=== PATIENT | female | born 1935 | race Caucasian/White ===

== ENCOUNTER → 2016-04-29 | Outpatient (CLI) | payer OTHER ==
[2016-04-29 08:02] LABS: Basophils # (auto) 0 uL; Basophils % (auto) 0.8 % (0.0-2.0); Eosinophils # (auto) 0.1 uL; Eosinophils % (auto) 1.9 % (0.0-7.0); Hematocrit 43.8 % (36.0-46.0); Hemoglobin 14.1 g/dL (12.2-16.2); Lymphocytes # (auto) 1.5 uL; Lymphocytes % (auto) 27.7 % (10.0-50.0); Mean Corpuscular Hemoglobin 29.5 pg (28.0-32.0); Mean Corpuscular Hgb Conc. 32.2 g/dL (32.0-36.0); Mean Corpuscular Volume 91.9 fL (80.0-100.0); Mean Platelet Volume 10.1 fL (7.4-10.4); Monocytes # (auto) 0.5 uL; Monocytes % (auto) 8.7 % (0.0-12.0); Neutrophils # (auto) 3.3 uL; Neutrophils % (auto) 60.9 % (37.0-80.0); Platelet Count (auto) 159 10^3/uL (140-450); Red Cell Distribution Width 13.4 % (11.6-16.0); White Blood Cell 5.4 10^3/uL (4.4-10.8)
[2016-04-29 08:21] LABS: Albumin 3.8 g/dL (3.4-5.0); BUN/Creatinine Ratio 22.4; Bilirubin, Total 0.5 mg/dL (0.2-1.0); Calcium 8.9 mg/dL (8.5-10.1); Total Protein 6.7 g/dL (6.4-8.2); Urine Bilirubin Negative (Negative); Urine Blood Negative /uL (Negative); Urine Color Yellow (Yellow); Urine Glucose Normal (Normal); Urine Ketone Negative (Negative); Urine Nitrite Negative (Negative); Urine RBC 1 /hpf (0 - 4); Urine Squamous Epithelial Cell FEW /hpf (<5); Urine Urobilinogen Normal (Negative); Urine pH 6.5 (5.0-8.0)
== END | disposition home or self-care (01) ==
LOC: LAB 06:46
DX: I10 Essential (primary) hypertension (principal)
CPT/HCPCS: 36415; 80053; 80061; 81001; 84443; 85025

== ENCOUNTER → 2016-08-29 | Outpatient (CLI) | payer OTHER ==
[2016-08-29 08:08] LABS: Basophils # (auto) 0 uL; Basophils % (auto) 0.8 % (0.0-2.0); Eosinophils # (auto) 0.1 uL; Eosinophils % (auto) 2.4 % (0.0-7.0); Hematocrit 40.9 % (36.0-46.0); Hemoglobin 13.2 g/dL (12.2-16.2); Lymphocytes # (auto) 1.6 uL; Lymphocytes % (auto) 29.8 % (10.0-50.0); Mean Corpuscular Hemoglobin 29.1 pg (28.0-32.0); Mean Corpuscular Hgb Conc. 32.2 g/dL (32.0-36.0); Mean Corpuscular Volume 90.3 fL (80.0-100.0); Mean Platelet Volume 10.1 fL (7.4-10.4); Monocytes # (auto) 0.3 uL; Monocytes % (auto) 5.9 % (0.0-12.0); Neutrophils # (auto) 3.3 uL; Neutrophils % (auto) 61.1 % (37.0-80.0); Platelet Count (auto) 190 10^3/uL (140-450); Red Cell Distribution Width 15.2 % (11.6-16.0); White Blood Cell 5.4 10^3/uL (4.4-10.8)
[2016-08-29 08:22] LABS: Urine Bilirubin Negative (Negative); Urine Blood Negative /uL (Negative); Urine Color Yellow (Yellow); Urine Glucose Normal (Normal); Urine Ketone Negative (Negative); Urine Nitrite Negative (Negative); Urine RBC 1 /hpf (0 - 4); Urine Squamous Epithelial Cell FEW /hpf (<5); Urine Urobilinogen Normal (Negative)
[2016-08-29 08:35] LABS: Albumin 3.8 g/dL (3.4-5.0); Bilirubin, Total 0.5 mg/dL (0.2-1.0); Calcium 8.8 mg/dL (8.5-10.1); Potassium 3.8 mmol/L (3.5-5.1); Total Protein 6.9 g/dL (6.4-8.2)
== END | disposition home or self-care (01) ==
LOC: LAB 06:28
DX: I10 Essential (primary) hypertension (principal); Z84.3 Family history of consanguinity
CPT/HCPCS: 36415; 80053; 80061; 81001; 83036; 84443; 85025

== ENCOUNTER 2016-10-10 10:13 | Emergency (ER) | payer OTHER ==
[~2016-10-10] VITALS: Ht 160 cm; Wt 61.2 kg
[2016-10-10 10:24] VITALS: BP 158/65
[2016-10-10] MEDS ORDERED: KETOROLAC TROMETH 60MG/2ML VIAL IM ONE (11:30)
== END 2016-10-10 13:25 | disposition home or self-care (01) ==
LOC: ER 10:13
DX: S32.10XA Unspecified fracture of sacrum, initial encounter for closed fracture (principal); X58.XXXA Exposure to other specified factors, initial encounter; Y93.B9 Activity, other involving muscle strengthening exercises; Y92.89 Other specified places as the place of occurrence of the external cause; Y99.8 Other external cause status; I10 Essential (primary) hypertension; E07.9 Disorder of thyroid, unspecified; Z98.890 Other specified postprocedural states
CPT/HCPCS: 72192; 96372; 99284; J1885

== ENCOUNTER 2016-10-16 08:22 | Emergency (ER) | payer OTHER ==
[~2016-10-16] VITALS: Ht 162.6 cm; Wt 61.2 kg
[2016-10-16 09:14] VITALS: BP 148/66
[2016-10-16] MEDS ORDERED: KETOROLAC TROMETH 30 MG/ML 1ML VIAL IM ONE (10:15)
[2016-10-16] MEDS ORDERED: HYDROcodone-ACET 5/325MG TAB PO ONE (10:15)
== END 2016-10-16 16:18 | disposition home or self-care (01) ==
LOC: ER 08:22
DX: M25.551 Pain in right hip (principal); K59.00 Constipation, unspecified; I10 Essential (primary) hypertension; E07.89 Other specified disorders of thyroid
CPT/HCPCS: 73502; 96372; 99284; J1885

== ENCOUNTER 2016-10-20 06:55 | Inpatient (IN) | payer OTHER ==
[~2016-10-20] VITALS: Ht 162.6 cm; Wt 62.6 kg
[2016-10-20] MEDS ORDERED: ONDANSETRON HCL 4 MG/2 ML VIAL IV ONE ×2 (09:15→14:45)
[2016-10-20] MEDS ORDERED: HYDROmorphone HCL 2 MG/ML VL IV ONE ×2 (09:15→11:00)
[2016-10-20] MEDS ORDERED: SODIUM CHLORIDE 0.9% 1,000 ML IV ONE (12:25)
[2016-10-20 13:15] LABS: Basophils # (auto) 0 uL; Basophils % (auto) 0.5 % (0.0-2.0); CONDITION Y; Eosinophils # (auto) 0.1 uL; Eosinophils % (auto) 1.3 % (0.0-7.0); Hematocrit 34.6 % (36.0-46.0); Hemoglobin 11.6 g/dL (12.2-16.2); Lymphocytes # (auto) 1.3 uL; Lymphocytes % (auto) 15.1 % (10.0-50.0); Mean Corpuscular Hemoglobin 29.9 pg (28.0-32.0); Mean Corpuscular Hgb Conc. 33.4 g/dL (32.0-36.0); Mean Corpuscular Volume 89.4 fL (80.0-100.0); Mean Platelet Volume 8.5 fL (7.4-10.4); Monocytes # (auto) 0.6 uL; Monocytes % (auto) 7.3 % (0.0-12.0); Neutrophils # (auto) 6.7 uL; Neutrophils % (auto) 75.8 % (37.0-80.0); Platelet Count (auto) 326 10^3/uL (140-450); Red Cell Distribution Width 14.3 % (11.6-16.0); White Blood Cell 8.8 10^3/uL (4.4-10.8)
[2016-10-20 13:30] LABS: INR 0.98 (0.9-1.15); Partial Thromboplastin Time 24.7 sec (22.64-33.71); Prothrombin Time 10.7 sec (9.37-12.3)
[2016-10-20 13:56] LABS: Albumin 3.1 g/dL (3.4-5.0); BUN/Creatinine Ratio 41.2; Bilirubin, Total 0.4 mg/dL (0.2-1.0); Calcium 8.1 mg/dL (8.5-10.1); Potassium 4.4 mmol/L (3.5-5.1); Total Protein 6.3 g/dL (6.4-8.2)
[2016-10-20] MEDS ORDERED: MORPHINE SULF INJ 2 MG/ML SYRINGE 1ML IV ONE (14:45)
[2016-10-20] MEDS ORDERED: LORazepam 2MG/ML-1ML VIAL IV ONE (15:30)
[2016-10-20] MEDS ORDERED: HYDROcodone-ACET 5/325MG TAB PO PRN (15:30)
[2016-10-20] MEDS ORDERED: ONDANSETRON HCL 4 MG/2 ML VIAL IV PRN (15:30)
[2016-10-20] MEDS ORDERED: LEVO112T4 PO (15:53)
[2016-10-20] MEDS ORDERED: AMLO5TAB2 PO (15:53)
[2016-10-20] MEDS ORDERED: LISI40TA PO (15:53)
[2016-10-20] MEDS: SODIUM CHLORIDE 0.9% 1,000 ML IV SCH (15:54)
[2016-10-20] MEDS: CALCIUM W/VIT D (600MG/400IU) TAB PO SCH (18:15)
[2016-10-20 21:57] LABS: Urine Bilirubin Negative (Negative); Urine Blood Negative /uL (Negative); Urine Color Yellow (Yellow); Urine Glucose Normal (Normal); Urine Mucus FEW (None Seen); Urine Nitrite Negative (Negative); Urine RBC <1 /hpf (0 - 4); Urine Urobilinogen Normal (Negative)
[2016-10-20 22:02] LABS: Urine Ketone 1+ (Negative)
[2016-10-20] MEDS: GABAPENTIN 300 MG CAP PO SCH (22:10)
[2016-10-20] MEDS: DOCUSATE SOD 100 MG CAP PO SCH (22:10)
[2016-10-20] MEDS: HYDROmorphone HCL 2 MG/ML VL IV PRN (23:06)
[2016-10-20 23:30] VITALS: BP 155/78
[2016-10-21] MEDS: HYDROmorphone HCL 2 MG/ML VL IV PRN (04:08)
[2016-10-21 04:58] VITALS: BP 155/99
[2016-10-21] MEDS: GABAPENTIN 300 MG CAP PO SCH ×3 (05:38→22:16)
[2016-10-21] MEDS ORDERED: LEVOTHYROXINE SODIUM 112 MCG TAB PO SCH (07:00)
[2016-10-21] MEDS: SODIUM CHLORIDE 0.9% 1,000 ML IV SCH ×2 (08:25→22:16)
[2016-10-21 09:23] VITALS: BP 127/77
[2016-10-21] MEDS: CALCIUM W/VIT D (600MG/400IU) TAB PO SCH ×2 (13:55→18:46)
[2016-10-21] MEDS: DOCUSATE SOD 100 MG CAP PO SCH ×2 (13:55→22:16)
[2016-10-21] MEDS: LISINOPRIL 20 MG TAB PO SCH (13:56)
[2016-10-21 14:09] VITALS: BP 152/73
[2016-10-21 18:10] VITALS: BP 140/68
[2016-10-21 23:37] VITALS: BP 151/77
[2016-10-22] MEDS: HYDROmorphone HCL 2 MG/ML VL IV PRN (04:33)
[2016-10-22 05:00] VITALS: BP 153/76
[2016-10-22] MEDS: GABAPENTIN 300 MG CAP PO SCH ×3 (05:51→22:01)
[2016-10-22] MEDS: LEVOTHYROXINE SODIUM 50 MCG TAB PO SCH (06:10)
[2016-10-22 06:24] LABS: Potassium 4.2 mmol/L (3.5-5.1)
[2016-10-22 06:31] LABS: BUN/Creatinine Ratio 32.1; Calcium 8.4 mg/dL (8.5-10.1)
[2016-10-22 08:30] VITALS: BP 148/91
[2016-10-22] MEDS ORDERED: LORazepam 2MG/ML-1ML VIAL IM ONE (09:45)
[2016-10-22] MEDS: CHOLECALCIFEROL (VITD3) 1,000 UNIT TAB PO SCH (09:48)
[2016-10-22] MEDS: CALCIUM W/VIT D (600MG/400IU) TAB PO SCH ×2 (09:48→18:00)
[2016-10-22] MEDS: DOCUSATE SOD 100 MG CAP PO SCH ×2 (09:48→22:00)
[2016-10-22] MEDS: LISINOPRIL 20 MG TAB PO SCH (09:49)
[2016-10-22] MEDS ORDERED: amLODIPine BESYLATE 5 MG TAB PO ONE (11:30)
[2016-10-22 12:30] VITALS: BP 149/81
[2016-10-22 16:35] VITALS: BP 153/62
[2016-10-22] MEDS ORDERED: HALOPERIDOL LACTATE 5 MG/ML INJ VIAL IM PRN (19:15)
[2016-10-22 22:36] VITALS: BP 154/77
[2016-10-23 05:41] VITALS: BP 148/81
[2016-10-23] MEDS: GABAPENTIN 300 MG CAP PO SCH ×2 (06:49→14:31)
[2016-10-23] MEDS: LEVOTHYROXINE SODIUM 50 MCG TAB PO SCH (06:49)
[2016-10-23] MEDS ORDERED: LACTULOSE 20Gm/30ML SOLN PO ONE (07:15)
[2016-10-23 08:12] VITALS: BP 147/73
[2016-10-23] MEDS: CHOLECALCIFEROL (VITD3) 1,000 UNIT TAB PO SCH (09:46)
[2016-10-23] MEDS: DOCUSATE SOD 100 MG CAP PO SCH (09:47)
[2016-10-23] MEDS: CALCIUM W/VIT D (600MG/400IU) TAB PO SCH (09:47)
[2016-10-23] MEDS ORDERED: amLODIPine BESYLATE 5 MG TAB PO SCH (10:00)
[2016-10-23] MEDS ORDERED: LISINOPRIL 20 MG TAB PO SCH (10:00)
[2016-10-23 12:59] VITALS: BP 145/84
[2016-10-23 16:32] VITALS: BP 138/64
== END 2016-10-23 20:00 | disposition short-term general hospital (02) | DRG 551 ==
LOC: EDBD 06:55 → ER 06:59 → TELE 07:00 → WEST WING 23:13
PROVIDERS: ADMIT Internal Medicine; ATTEND Internal Medicine
DX: S32.10XA Unspecified fracture of sacrum, initial encounter for closed fracture (principal); G93.41 Metabolic encephalopathy; M48.56XA Collapsed vertebra, not elsewhere classified, lumbar region, initial encounter for fracture; X58.XXXA Exposure to other specified factors, initial encounter; I10 Essential (primary) hypertension; E11.9 Type 2 diabetes mellitus without complications; E03.9 Hypothyroidism, unspecified; M48.06 Spinal stenosis, lumbar region; M81.0 Age-related osteoporosis without current pathological fracture; E55.9 Vitamin D deficiency, unspecified; S32.19XA Other fracture of sacrum, initial encounter for closed fracture; G89.29 Other chronic pain; K59.00 Constipation, unspecified; M85.80 Other specified disorders of bone density and structure, unspecified site; M54.16 Radiculopathy, lumbar region; W86.8XXA Exposure to other electric current, initial encounter; Y99.8 Other external cause status; Y92.89 Other specified places as the place of occurrence of the external cause; Y93.89 Activity, other specified; Z79.899 Other long term (current) drug therapy; Z99.3 Dependence on wheelchair; Z71.89 Other specified counseling
CPT/HCPCS: 36415; 51702; 71010; 72148; 72192; 80048; 80053; 81001; 82306; 84439; 84443; 84481; 84484; 85025; 85610; 85652; 85730; 86141; 96374; 96375; 96376; J2405

== ENCOUNTER 2016-11-20 16:20 | Emergency (ER) | payer OTHER ==
[~2016-11-20] VITALS: Ht 162.6 cm; Wt 61.7 kg
[~2016-11-20 16:20] MED LIST: AMLO5TAB2 PO; LEVO112T4 PO; LISI40TA PO
[2016-11-20 16:55] LABS: Basophils # (auto) 0 uL; Basophils % (auto) 0.4 % (0.0-2.0); CONDITION Y; Eosinophils # (auto) 0.3 uL; Eosinophils % (auto) 4.6 % (0.0-7.0); Hematocrit 35.5 % (36.0-46.0); Hemoglobin 11.9 g/dL (12.2-16.2); Lymphocytes # (auto) 2.5 uL; Lymphocytes % (auto) 36.9 % (10.0-50.0); Mean Corpuscular Hemoglobin 30.2 pg (28.0-32.0); Mean Corpuscular Hgb Conc. 33.5 g/dL (32.0-36.0); Mean Corpuscular Volume 89.9 fL (80.0-100.0); Mean Platelet Volume 9.1 fL (7.4-10.4); Monocytes # (auto) 0.6 uL; Monocytes % (auto) 8.9 % (0.0-12.0); Neutrophils # (auto) 3.3 uL; Neutrophils % (auto) 49.2 % (37.0-80.0); Platelet Count (auto) 256 10^3/uL (140-450); Red Cell Distribution Width 16.5 % (11.6-16.0); White Blood Cell 6.7 10^3/uL (4.4-10.8)
[2016-11-20 17:25] LABS: Albumin 3.7 g/dL (3.4-5.0); BUN/Creatinine Ratio 30.1; Bilirubin, Total 0.2 mg/dL (0.2-1.0); Calcium 8.7 mg/dL (8.5-10.1); Total Protein 6.9 g/dL (6.4-8.2)
[2016-11-20 19:10] VITALS: BP 130/80
== END 2016-11-20 19:26 | disposition home or self-care (01) ==
LOC: ER 16:23
DX: M79.605 Pain in left leg (principal); M79.604 Pain in right leg; I10 Essential (primary) hypertension; E07.9 Disorder of thyroid, unspecified; Z90.710 Acquired absence of both cervix and uterus; Z79.899 Other long term (current) drug therapy; Z90.49 Acquired absence of other specified parts of digestive tract
CPT/HCPCS: 36415; 80053; 85025; 85379; 93970

== ENCOUNTER 2017-02-03 12:34 | Emergency (ER) | payer OTHER ==
[~2017-02-03] VITALS: Ht 162.6 cm; Wt 58.1 kg
[2017-02-03 13:35] LABS: Basophils # (auto) 0 uL; Basophils % (auto) 0.6 % (0.0-2.0); Eosinophils # (auto) 0.1 uL; Hematocrit 40.5 % (36.0-46.0); Hemoglobin 13.6 g/dL (12.2-16.2); Lymphocytes % (auto) 26.7 % (10.0-50.0); Mean Corpuscular Hgb Conc. 33.6 g/dL (32.0-36.0); Mean Corpuscular Volume 92.2 fL (80.0-100.0); Mean Platelet Volume 8.6 fL (6.9-10.8); Monocytes # (auto) 0.5 uL; Monocytes % (auto) 6.9 % (0.0-12.0); Neutrophils # (auto) 4.8 uL; Neutrophils % (auto) 64.8 % (37.0-80.0); Nucleated Red Blood Cells % 0.1 %; Platelet Count (auto) 178 10^3/uL (140-450); Red Cell Distribution Width 14.2 % (11.8-14.3); White Blood Cell 7.5 10^3/uL (4.4-10.8)
[2017-02-03 13:48] LABS: INR 0.92 (0.9-1.15); Partial Thromboplastin Time 23.8 sec (22.64-33.71)
[2017-02-03 14:06] VITALS: BP 190/90
[2017-02-03 14:06] LABS: Albumin 3.9 g/dL (3.4-5.0); Alkaline Phosphatase 126 U/L (45-117); Anion Gap 8 (5-15); Aspartate Aminotransferase 24 U/L (15-37); BUN/Creatinine Ratio 26.2; Bilirubin, Total 0.2 mg/dL (0.2-1.0); Blood Urea Nitrogen 22 mg/dL (7-18); Calcium 8.9 mg/dL (8.5-10.1); Carbon Dioxide 25 mmol/L (21-32); Chloride 109 mmol/L (98-107); GFR African American 84 mL/min; GFR Non-African American 69 mL/min; Glucose 170 mg/dL (74-106); Sodium 142 mmol/L (136-145)
[2017-02-03] MEDS ORDERED: cloNIDine HCL 0.1 MG TAB PO ONE (14:30)
== END 2017-02-03 15:02 | disposition home or self-care (01) ==
LOC: ER 12:34
DX: R07.89 Other chest pain (principal); E11.9 Type 2 diabetes mellitus without complications; I10 Essential (primary) hypertension; E07.9 Disorder of thyroid, unspecified; G89.29 Other chronic pain; M54.9 Dorsalgia, unspecified; Z90.49 Acquired absence of other specified parts of digestive tract; Z79.899 Other long term (current) drug therapy; Z90.710 Acquired absence of both cervix and uterus
CPT/HCPCS: 36415; 71020; 80053; 84484; 85025; 85610; 85730; 93005; 94761

== ENCOUNTER → 2017-09-08 | Outpatient (CLI) | payer OTHER ==
[2017-09-08 08:08] LABS: Urine Bacteria NONE SEEN /hpf (None Seen); Urine Blood Negative /uL (Negative); Urine Specific Gravity 1.012 (1.001-1.035); Urine WBC 1 /hpf (0 - 5)
[2017-09-08 08:09] LABS: Basophils # (auto) 0 uL; Basophils % (auto) 0.7 % (0.0-2.0); Eosinophils # (auto) 0.1 uL; Hematocrit 40.3 % (36.0-46.0); Hemoglobin 13.3 g/dL (12.2-16.2); Lymphocytes # (auto) 1.6 uL; Lymphocytes % (auto) 32.7 % (10.0-50.0); Mean Corpuscular Hemoglobin 30.4 pg (28.0-32.0); Mean Corpuscular Volume 92.1 fL (80.0-100.0); Monocytes # (auto) 0.4 uL; Monocytes % (auto) 7.1 % (0.0-12.0); Neutrophils # (auto) 2.9 uL; Neutrophils % (auto) 57.5 % (37.0-80.0); Nucleated Red Blood Cells % 0.1 %; Platelet Count (auto) 171 10^3/uL (140-450); Red Blood Cells 4.38 10^6/uL (4.0-5.20); Red Cell Distribution Width 14.6 % (11.8-14.3)
[2017-09-08 08:27] LABS: Albumin 3.9 g/dL (3.4-5.0); BUN/Creatinine Ratio 26.8; Bilirubin, Total 0.5 mg/dL (0.2-1.0); Calcium 9.2 mg/dL (8.5-10.1); Potassium 3.8 mmol/L (3.5-5.1)
== END | disposition home or self-care (01) ==
LOC: LAB 07:08
PROVIDERS: ATTEND Nurse Practitioner
DX: I10 Essential (primary) hypertension (principal); E03.9 Hypothyroidism, unspecified; E11.9 Type 2 diabetes mellitus without complications
CPT/HCPCS: 36415; 80053; 80061; 81001; 84443; 85025

== ENCOUNTER → 2018-01-26 | Outpatient (CLI) | payer OTHER ==
[~2018-01-26] MED LIST changes: +AMLO5TAB13 PO; -AMLO5TAB2 PO
[2018-01-26 08:02] LABS: Basophils # (auto) 0 uL; Basophils % (auto) 0.6 % (0.0-2.0); Eosinophils # (auto) 0.1 uL; Eosinophils % (auto) 2.6 % (0.0-7.0); Hematocrit 37.9 % (36.0-46.0); Hemoglobin 12.7 g/dL (12.2-16.2); Lymphocytes # (auto) 1.2 uL; Lymphocytes % (auto) 21.8 % (10.0-50.0); Mean Corpuscular Hemoglobin 30.6 pg (28.0-32.0); Mean Corpuscular Hgb Conc. 33.5 g/dL (32.0-36.0); Mean Corpuscular Volume 91.3 fL (80.0-100.0); Monocytes # (auto) 0.4 uL; Monocytes % (auto) 6.8 % (0.0-12.0); Neutrophils # (auto) 3.9 uL; Neutrophils % (auto) 68.2 % (37.0-80.0); Nucleated Red Blood Cells % 0.1 %; Platelet Count (auto) 176 10^3/uL (140-450); Red Blood Cells 4.15 10^6/uL (4.0-5.20); Red Cell Distribution Width 14.1 % (11.8-14.3); White Blood Cell 5.7 10^3/uL (4.4-10.8)
[2018-01-26 08:17] LABS: INR 0.9 (0.9-1.15); Prothrombin Time 9.7 sec (9.27-12.13)
[2018-01-26 08:27] LABS: Albumin 3.8 g/dL (3.4-5.0); BUN/Creatinine Ratio 31.7; Bilirubin, Total 0.4 mg/dL (0.2-1.0); Calcium 8.6 mg/dL (8.5-10.1); Potassium 3.8 mmol/L (3.5-5.1); Total Protein 6.8 g/dL (6.4-8.2)
[2018-01-26 13:05] LABS: Urine Bacteria FEW /hpf (None Seen); Urine Blood Negative /uL (Negative); Urine Specific Gravity 1.019 (1.001-1.035); Urine WBC 4 /hpf (0 - 5)
== END | disposition home or self-care (01) ==
LOC: LAB 07:13
DX: H25.11 Age-related nuclear cataract, right eye (principal); I10 Essential (primary) hypertension; E11.9 Type 2 diabetes mellitus without complications
CPT/HCPCS: 36415; 80053; 81001; 85025; 85610; 85730

== ENCOUNTER → 2018-02-17 | Outpatient (CLI) | payer OTHER ==
[2018-02-17 10:51] LABS: Basophils # (auto) 0 uL; Basophils % (auto) 0.6 % (0.0-2.0); Eosinophils # (auto) 0.1 uL; Eosinophils % (auto) 1.4 % (0.0-7.0); Hemoglobin 13.6 g/dL (12.2-16.2); Lymphocytes # (auto) 1.8 uL; Lymphocytes % (auto) 25.1 % (10.0-50.0); Mean Corpuscular Hemoglobin 30.6 pg (28.0-32.0); Mean Corpuscular Hgb Conc. 33.3 g/dL (32.0-36.0); Mean Corpuscular Volume 91.9 fL (80.0-100.0); Monocytes # (auto) 0.5 uL; Monocytes % (auto) 7.5 % (0.0-12.0); Neutrophils # (auto) 4.8 uL; Neutrophils % (auto) 65.4 % (37.0-80.0); Platelet Count (auto) 173 10^3/uL (140-450); Red Blood Cells 4.46 10^6/uL (4.0-5.20); Red Cell Distribution Width 14.1 % (11.8-14.3); White Blood Cell 7.3 10^3/uL (4.4-10.8)
[2018-02-17 11:05] LABS: INR 0.92 (0.9-1.15); Prothrombin Time 9.9 sec (9.27-12.13)
[2018-02-17 11:09] LABS: Albumin 3.8 g/dL (3.4-5.0); Calcium 8.9 mg/dL (8.5-10.1); Potassium 3.8 mmol/L (3.5-5.1); Urine Bacteria FEW /hpf (None Seen); Urine Blood Negative /uL (Negative); Urine Specific Gravity 1.016 (1.001-1.035); Urine WBC 80 /hpf (0 - 5)
[2018-02-17 11:12] LABS: BUN/Creatinine Ratio 31.3; Bilirubin, Total 0.4 mg/dL (0.2-1.0); Total Protein 7.2 g/dL (6.4-8.2)
== END | disposition home or self-care (01) ==
LOC: LAB 10:37
DX: H25.12 Age-related nuclear cataract, left eye (principal)
CPT/HCPCS: 36415; 80053; 81001; 85025; 85610; 85730

== ENCOUNTER → 2018-03-26 | Outpatient (CLI) | payer OTHER ==
[2018-03-26 07:37] LABS: Basophils # (auto) 0 uL; Basophils % (auto) 0.8 % (0.0-2.0); Eosinophils # (auto) 0.1 uL; Eosinophils % (auto) 1.8 % (0.0-7.0); Hematocrit 40.5 % (36.0-46.0); Hemoglobin 13.4 g/dL (12.2-16.2); Lymphocytes # (auto) 1.6 uL; Lymphocytes % (auto) 28.8 % (10.0-50.0); Mean Corpuscular Hemoglobin 30.4 pg (28.0-32.0); Mean Corpuscular Hgb Conc. 33.1 g/dL (32.0-36.0); Mean Corpuscular Volume 91.7 fL (80.0-100.0); Monocytes # (auto) 0.4 uL; Monocytes % (auto) 8.2 % (0.0-12.0); Neutrophils # (auto) 3.3 uL; Neutrophils % (auto) 60.4 % (37.0-80.0); Platelet Count (auto) 158 10^3/uL (140-450); Red Blood Cells 4.42 10^6/uL (4.0-5.20); Red Cell Distribution Width 14.1 % (11.8-14.3); White Blood Cell 5.5 10^3/uL (4.4-10.8)
[2018-03-26 07:42] LABS: Urine Bacteria FEW /hpf (None Seen); Urine Blood Negative /uL (Negative); Urine WBC 1 /hpf (0 - 5)
[2018-03-26 07:54] LABS: Albumin 3.8 g/dL (3.4-5.0); BUN/Creatinine Ratio 34.2; Potassium 3.6 mmol/L (3.5-5.1)
[2018-03-26 07:59] LABS: Bilirubin, Total 0.4 mg/dL (0.2-1.0); Total Protein 6.9 g/dL (6.4-8.2)
== END | disposition home or self-care (01) ==
LOC: LAB 07:04
PROVIDERS: ATTEND Nurse Practitioner
DX: E78.5 Hyperlipidemia, unspecified (principal)
CPT/HCPCS: 36415; 80053; 80061; 81001; 84443; 85025

== ENCOUNTER → 2018-08-02 | Outpatient (CLI) | payer OTHER ==
[2018-08-02 08:00] LABS: Basophils # (auto) 0.1 uL; Basophils % (auto) 0.6 % (0.0-2.0); Eosinophils # (auto) 0.1 uL; Eosinophils % (auto) 1.5 % (0.0-7.0); Hematocrit 42.4 % (36.0-46.0); Hemoglobin 13.9 g/dL (12.2-16.2); Lymphocytes # (auto) 1.8 uL; Lymphocytes % (auto) 19.9 % (10.0-50.0); Mean Corpuscular Hemoglobin 29.9 pg (28.0-32.0); Mean Corpuscular Hgb Conc. 32.8 g/dL (32.0-36.0); Mean Corpuscular Volume 91.4 fL (80.0-100.0); Monocytes # (auto) 0.7 uL; Monocytes % (auto) 7.6 % (0.0-12.0); Neutrophils # (auto) 6.3 uL; Neutrophils % (auto) 70.4 % (37.0-80.0); Nucleated Red Blood Cells % 0.1 %; Platelet Count (auto) 188 10^3/uL (140-450); Red Blood Cells 4.64 10^6/uL (4.0-5.20); Red Cell Distribution Width 15.1 % (11.8-14.3)
[2018-08-02 08:04] LABS: Urine Bacteria NONE SEEN /hpf (None Seen); Urine Blood Negative /uL (Negative); Urine Specific Gravity 1.016 (1.001-1.035); Urine WBC 1 /hpf (0 - 5)
[2018-08-02 08:53] LABS: Potassium 3.6 mmol/L (3.5-5.1)
[2018-08-02 09:04] LABS: Albumin 3.8 g/dL (3.4-5.0); Bilirubin, Total 0.6 mg/dL (0.2-1.0); Calcium 8.9 mg/dL (8.5-10.1); Total Protein 6.9 g/dL (6.4-8.2)
[2018-08-02 09:48] LABS: Folate (Folic Acid) > 24.00 ng/mL (5.38-24)
== END | disposition home or self-care (01) ==
LOC: LAB 07:10
PROVIDERS: ATTEND Nurse Practitioner
DX: E78.5 Hyperlipidemia, unspecified (principal)
CPT/HCPCS: 36415; 80053; 80061; 81001; 82306; 82607; 82746; 84443; 84550; 85025

== ENCOUNTER → 2019-03-28 | Outpatient (CLI) | payer OTHER ==
[~2019-03-28] MED LIST changes: -AMLO5TAB13 PO; +AMLO5TAB15 PO
[2019-03-28 08:14] LABS: Basophils # (auto) 0 uL; Basophils % (auto) 0.8 % (0.0-2.0); Eosinophils # (auto) 0.1 uL; Eosinophils % (auto) 1.8 % (0.0-7.0); Hematocrit 40.7 % (36.0-46.0); Hemoglobin 13.6 g/dL (12.2-16.2); Lymphocytes # (auto) 1.3 uL; Lymphocytes % (auto) 26.7 % (10.0-50.0); Mean Corpuscular Hemoglobin 30.7 pg (28.0-32.0); Mean Corpuscular Hgb Conc. 33.4 g/dL (32.0-36.0); Mean Corpuscular Volume 91.7 fL (80.0-100.0); Monocytes # (auto) 0.4 uL; Monocytes % (auto) 8.8 % (0.0-12.0); Neutrophils % (auto) 61.9 % (37.0-80.0); Nucleated Red Blood Cells % 0.1 %; Platelet Count (auto) 154 10^3/uL (140-450); Red Blood Cells 4.44 10^6/uL (4.0-5.20); Red Cell Distribution Width 14.7 % (11.8-14.3); White Blood Cell 4.9 10^3/uL (4.4-10.8)
[2019-03-28 08:24] LABS: Urine Bacteria NONE SEEN /hpf (None Seen); Urine Blood Negative /uL (Negative); Urine Mucus FEW (None Seen); Urine Specific Gravity 1.012 (1.001-1.035); Urine WBC 6 /hpf (0 - 5)
[2019-03-28 09:17] LABS: Potassium 3.7 mmol/L (3.5-5.1)
[2019-03-28 09:26] LABS: Albumin 3.8 g/dL (3.4-5.0); BUN/Creatinine Ratio 24.4; Bilirubin, Total 0.5 mg/dL (0.2-1.0); Calcium 8.7 mg/dL (8.5-10.1); Total Protein 7.1 g/dL (6.4-8.2)
== END | disposition home or self-care (01) ==
LOC: LAB 07:07
PROVIDERS: ATTEND Nurse Practitioner
DX: Z00.00 Encounter for general adult medical examination without abnormal findings (principal); I10 Essential (primary) hypertension
CPT/HCPCS: 36415; 80053; 81001; 84443; 85025

== ENCOUNTER → 2019-06-21 | Outpatient (CLI) | payer OTHER ==
[2019-06-21 08:08] LABS: Basophils # (auto) 0.1 uL; Basophils % (auto) 0.9 % (0.0-2.0); Eosinophils # (auto) 0.1 uL; Eosinophils % (auto) 2.1 % (0.0-7.0); Hematocrit 41.5 % (36.0-46.0); Hemoglobin 13.7 g/dL (12.2-16.2); Lymphocytes # (auto) 1.6 uL; Lymphocytes % (auto) 28.9 % (10.0-50.0); Mean Corpuscular Hemoglobin 29.7 pg (28.0-32.0); Mean Corpuscular Hgb Conc. 32.9 g/dL (32.0-36.0); Mean Corpuscular Volume 90.3 fL (80.0-100.0); Monocytes # (auto) 0.4 uL; Neutrophils # (auto) 3.4 uL; Neutrophils % (auto) 60.1 % (37.0-80.0); Nucleated Red Blood Cells % 0.1 %; Platelet Count (auto) 162 10^3/uL (140-450); Red Cell Distribution Width 13.8 % (11.8-14.3); White Blood Cell 5.6 10^3/uL (4.4-10.8)
[2019-06-21 08:10] LABS: Urine Bacteria NONE SEEN /hpf (None Seen); Urine Blood Negative /uL (Negative); Urine Specific Gravity 1.009 (1.001-1.035); Urine WBC 1 /hpf (0 - 5)
[2019-06-21 08:30] LABS: Albumin 3.7 g/dL (3.4-5.0); Calcium 8.8 mg/dL (8.5-10.1); Potassium 3.6 mmol/L (3.5-5.1)
[2019-06-21 08:36] LABS: BUN/Creatinine Ratio 28.2; Bilirubin, Total 0.5 mg/dL (0.2-1.0); Total Protein 6.9 g/dL (6.4-8.2)
[2019-06-21 09:03] LABS: Folate (Folic Acid) > 24.00 ng/mL (5.38-24)
== END | disposition home or self-care (01) ==
LOC: LAB 07:05
PROVIDERS: ATTEND Nurse Practitioner
DX: Z00.00 Encounter for general adult medical examination without abnormal findings (principal); E78.5 Hyperlipidemia, unspecified
CPT/HCPCS: 36415; 80053; 80061; 81001; 82746; 84443; 85025

== ENCOUNTER → 2019-12-15 | Outpatient (CLI) | payer OTHER ==
[~2019-12-15] MED LIST changes: -LISI40TA PO; +LISI40TA11 PO
[2019-12-15 08:03] LABS: Basophils # (auto) 0 10 ^3/uL (0-0.2); Basophils % (auto) 0.8 % (0.0-2.0); Eosinophils # (auto) 0.1 10 ^3/uL (0-0.8); Eosinophils % (auto) 1.2 % (0.0-7.0); Hematocrit 39.9 % (36.0-46.0); Lymphocytes # (auto) 1.3 10 ^3/uL (0.4-5.4); Lymphocytes % (auto) 22.9 % (10.0-50.0); Mean Corpuscular Hemoglobin 29.9 pg (28.0-32.0); Mean Corpuscular Hgb Conc. 32.6 g/dL (32.0-36.0); Mean Corpuscular Volume 91.8 fL (80.0-100.0); Monocytes # (auto) 0.4 10 ^3/uL (0-1.3); Monocytes % (auto) 7.6 % (0.0-12.0); Neutrophils # (auto) 3.8 10 ^3/uL (1.6-8.6); Neutrophils % (auto) 67.5 % (37.0-80.0); Platelet Count (auto) 193 10^3/uL (140-450); Red Blood Cells 4.35 10^6/uL (4.0-5.20); Red Cell Distribution Width 14.3 % (11.8-14.3); White Blood Cell 5.6 10^3/uL (4.4-10.8)
[2019-12-15 08:07] LABS: Urine Bacteria NONE SEEN /hpf (None Seen); Urine Blood Negative /uL (Negative); Urine Mucus FEW (None Seen); Urine Specific Gravity 1.014 (1.001-1.035); Urine WBC 4 /hpf (0 - 5)
[2019-12-15 08:12] LABS: Albumin 3.8 g/dL (3.4-5.0); Calcium 8.9 mg/dL (8.5-10.1); Potassium 3.7 mmol/L (3.5-5.1)
[2019-12-15 08:17] LABS: Bilirubin, Total 0.5 mg/dL (0.2-1.0); Total Protein 6.7 g/dL (6.4-8.2)
== END | disposition home or self-care (01) ==
LOC: LAB 07:04
PROVIDERS: ATTEND Nurse Practitioner
DX: I10 Essential (primary) hypertension (principal); E78.5 Hyperlipidemia, unspecified
CPT/HCPCS: 36415; 80053; 80061; 81001; 84443; 85025

== ENCOUNTER → 2020-02-16 | Outpatient (CLI) | payer OTHER | END | disposition home or self-care (01) | LOC: LAB 07:12 | PROVIDERS: ATTEND Nurse Practitioner | DX: R73.9 Hyperglycemia, unspecified (principal) | CPT/HCPCS: 36415; 83036 ==

== ENCOUNTER → 2020-07-31 | Outpatient (CLI) | payer OTHER ==
[~2020-07-31] MED LIST changes: +AMLO-489 PO; -AMLO5TAB15 PO
== END | disposition home or self-care (01) ==
LOC: LAB 15:46
PROVIDERS: ATTEND Family Medicine
DX: C44.92 Squamous cell carcinoma of skin, unspecified (principal)

== ENCOUNTER → 2020-08-24 | Outpatient (CLI) | payer OTHER | END | disposition home or self-care (01) | LOC: LAB 14:23 | PROVIDERS: ATTEND Family Medicine | DX: C44.91 Basal cell carcinoma of skin, unspecified (principal) ==

== ENCOUNTER → 2020-10-09 | Outpatient (CLI) | payer OTHER | END | disposition home or self-care (01) | LOC: LAB 13:00 | PROVIDERS: ATTEND Family Medicine | DX: C44.81 Basal cell carcinoma of overlapping sites of skin (principal) ==

== ENCOUNTER → 2021-03-26 | Outpatient (CLI) | payer OTHER ==
[2021-03-26 07:36] LABS: Basophils # (auto) 0 10 ^3/uL (0-0.2); Basophils % (auto) 0.7 % (0.0-2.0); Eosinophils # (auto) 0.1 10 ^3/uL (0-0.8); Eosinophils % (auto) 1.4 % (0.0-7.0); Hematocrit 37.4 % (36.0-46.0); Hemoglobin 12.6 g/dL (12.2-16.2); Lymphocytes # (auto) 1.7 10 ^3/uL (0.4-5.4); Lymphocytes % (auto) 27.5 % (10.0-50.0); Mean Corpuscular Hemoglobin 30.7 pg (28.0-32.0); Mean Corpuscular Hgb Conc. 33.8 g/dL (32.0-36.0); Monocytes # (auto) 0.6 10 ^3/uL (0-1.3); Monocytes % (auto) 9.1 % (0.0-12.0); Neutrophils # (auto) 3.8 10 ^3/uL (1.6-8.6); Neutrophils % (auto) 61.3 % (37.0-80.0); Nucleated Red Blood Cells % 0.1 %; Red Blood Cells 4.11 10^6/uL (4.0-5.20); Red Cell Distribution Width 14.9 % (11.8-14.3); White Blood Cell 6.1 10^3/uL (4.4-10.8)
[2021-03-26 07:56] LABS: Albumin 3.5 g/dL (3.4-5.0); Calcium 8.8 mg/dL (8.5-10.1); Potassium 3.9 mmol/L (3.5-5.1)
[2021-03-26 08:02] LABS: Bilirubin, Total 0.5 mg/dL (0.2-1.0); Total Protein 6.3 g/dL (6.4-8.2)
[2021-03-26 08:08] LABS: Urine Bacteria NONE SEEN /hpf (None Seen); Urine Blood Negative /uL (Negative); Urine Hyaline Cast FEW /lpf (0 - 2); Urine Specific Gravity 1.014 (1.001-1.035); Urine WBC 1 /hpf (0 - 5)
[2021-03-26 14:45] LABS: BUN/Creatinine Ratio 30.6
== END | disposition home or self-care (01) ==
LOC: LAB 06:58
PROVIDERS: ATTEND Nurse Practitioner
DX: E78.5 Hyperlipidemia, unspecified (principal); I10 Essential (primary) hypertension
CPT/HCPCS: 36415; 80053; 80061; 81001; 84443; 85025

== ENCOUNTER → 2021-05-16 | Outpatient (CLI) | payer OTHER ==
[2021-05-16 12:52] LABS: Urine Bacteria MANY /hpf (None Seen); Urine Blood 3+ /uL (Negative); Urine Specific Gravity 1.018 (1.001-1.035); Urine WBC 50 /hpf (0 - 5)
== END | disposition home or self-care (01) ==
LOC: LAB 11:04
PROVIDERS: ATTEND Nurse Practitioner Family
DX: N39.0 Urinary tract infection, site not specified (principal); R30.0 Dysuria
CPT/HCPCS: 81001; 87086

== ENCOUNTER → 2021-12-16 | Outpatient (CLI) | payer OTHER | END | disposition home or self-care (01) | LOC: LAB 06:23 | PROVIDERS: ATTEND Nurse Practitioner | DX: N39.0 Urinary tract infection, site not specified (principal) | CPT/HCPCS: 87086; 87088; 87186 ==

== ENCOUNTER → 2021-12-16 | Outpatient (CLI) | payer OTHER ==
[2021-12-16 07:15] LABS: Basophils # (auto) 0 10 ^3/uL (0-0.2); Basophils % (auto) 0.6 % (0.0-2.0); Eosinophils # (auto) 0.1 10 ^3/uL (0-0.8); Eosinophils % (auto) 1.4 % (0.0-7.0); Hematocrit 38.5 % (36.0-46.0); Hemoglobin 12.5 g/dL (12.2-16.2); Lymphocytes # (auto) 1.7 10 ^3/uL (0.4-5.4); Lymphocytes % (auto) 31.8 % (10.0-50.0); Mean Corpuscular Hemoglobin 29.5 pg (28.0-32.0); Mean Corpuscular Hgb Conc. 32.5 g/dL (32.0-36.0); Mean Corpuscular Volume 90.8 fL (80.0-100.0); Monocytes # (auto) 0.4 10 ^3/uL (0-1.3); Monocytes % (auto) 7.7 % (0.0-12.0); Neutrophils # (auto) 3.2 10 ^3/uL (1.6-8.6); Neutrophils % (auto) 58.5 % (37.0-80.0); Red Blood Cells 4.24 10^6/uL (4.0-5.20); Red Cell Distribution Width 14.8 % (11.8-14.3); White Blood Cell 5.5 10^3/uL (4.4-10.8)
[2021-12-16 07:23] LABS: Urine Bacteria NONE SEEN /hpf (None Seen); Urine Blood Negative /uL (Negative); Urine Specific Gravity 1.014 (1.001-1.035); Urine WBC 8 /hpf (0 - 5)
[2021-12-16 07:41] LABS: Potassium 3.9 mmol/L (3.5-5.1)
[2021-12-16 07:57] LABS: Albumin 3.6 g/dL (3.4-5.0); BUN/Creatinine Ratio 27.1; Bilirubin, Total 0.6 mg/dL (0.2-1.0); Calcium 8.8 mg/dL (8.5-10.1); Total Protein 6.3 g/dL (6.4-8.2)
== END | disposition home or self-care (01) ==
LOC: LAB 06:43
PROVIDERS: ATTEND Nurse Practitioner
DX: E78.5 Hyperlipidemia, unspecified (principal); E03.9 Hypothyroidism, unspecified; I10 Essential (primary) hypertension
CPT/HCPCS: 36415; 80053; 80061; 81001; 84443; 85025

== ENCOUNTER → 2022-04-22 | Outpatient (CLI) | payer OTHER ==
[2022-04-22 07:58] LABS: Basophils # (auto) 0 10 ^3/uL (0-0.2); Basophils % (auto) 0.6 % (0.0-2.0); Eosinophils # (auto) 0.1 10 ^3/uL (0-0.8); Eosinophils % (auto) 1.9 % (0.0-7.0); Hematocrit 37.3 % (36.0-46.0); Hemoglobin 12.5 g/dL (12.2-16.2); Lymphocytes # (auto) 1.7 10 ^3/uL (0.4-5.4); Lymphocytes % (auto) 25.4 % (10.0-50.0); Mean Corpuscular Hemoglobin 30.2 pg (28.0-32.0); Mean Corpuscular Hgb Conc. 33.6 g/dL (32.0-36.0); Mean Corpuscular Volume 89.9 fL (80.0-100.0); Monocytes # (auto) 0.7 10 ^3/uL (0-1.3); Monocytes % (auto) 10.2 % (0.0-12.0); Neutrophils # (auto) 4.1 10 ^3/uL (1.6-8.6); Neutrophils % (auto) 61.9 % (37.0-80.0); Red Blood Cells 4.15 10^6/uL (4.0-5.20); Red Cell Distribution Width 13.8 % (11.8-14.3); White Blood Cell 6.7 10^3/uL (4.4-10.8)
[2022-04-22 08:19] LABS: Urine Bacteria NONE SEEN /hpf (None Seen); Urine Blood Negative /uL (Negative); Urine Mucus FEW (None Seen); Urine Specific Gravity 1.015 (1.001-1.035); Urine WBC 2 /hpf (0 - 5)
[2022-04-22 10:40] LABS: Potassium 3.8 mmol/L (3.5-5.1)
[2022-04-22 10:41] LABS: Albumin 3.5 g/dL (3.4-5.0); Bilirubin, Total 0.9 mg/dL (0.2-1.0); Calcium 9.1 mg/dL (8.5-10.1); Total Protein 6.4 g/dL (6.4-8.2)
== END | disposition home or self-care (01) ==
LOC: LAB 07:05
PROVIDERS: ATTEND Nurse Practitioner
DX: I10 Essential (primary) hypertension (principal); E78.5 Hyperlipidemia, unspecified
CPT/HCPCS: 36415; 80053; 80061; 81001; 84443; 85025

== ENCOUNTER → 2022-08-01 | Outpatient (CLI) | payer OTHER | END | disposition home or self-care (01) | LOC: LAB 12:10 | PROVIDERS: ATTEND Family Medicine | DX: L57.0 Actinic keratosis (principal) | CPT/HCPCS: 88302 ==

== ENCOUNTER → 2022-08-22 | Outpatient (CLI) | payer OTHER ==
[2022-08-22 07:10] LABS: Basophils # (auto) 0 10 ^3/uL (0-0.2); Basophils % (auto) 0.7 % (0.0-2.0); Eosinophils # (auto) 0.1 10 ^3/uL (0-0.8); Eosinophils % (auto) 1.5 % (0.0-7.0); Hematocrit 38.4 % (36.0-46.0); Lymphocytes # (auto) 1.9 10 ^3/uL (0.4-5.4); Lymphocytes % (auto) 31.6 % (10.0-50.0); Mean Corpuscular Hemoglobin 30.3 pg (28.0-32.0); Mean Corpuscular Hgb Conc. 33.8 g/dL (32.0-36.0); Mean Corpuscular Volume 89.6 fL (80.0-100.0); Monocytes # (auto) 0.6 10 ^3/uL (0-1.3); Monocytes % (auto) 9.1 % (0.0-12.0); Neutrophils # (auto) 3.4 10 ^3/uL (1.6-8.6); Neutrophils % (auto) 57.1 % (37.0-80.0); Nucleated Red Blood Cells % 0.1 %; Red Blood Cells 4.28 10^6/uL (4.0-5.20); Red Cell Distribution Width 14.1 % (11.8-14.3)
[2022-08-22 07:24] LABS: Urine Bacteria NONE SEEN /hpf (None Seen); Urine Blood Negative /uL (Negative); Urine Specific Gravity 1.014 (1.001-1.035); Urine WBC 1 /hpf (0 - 5)
[2022-08-22 07:53] LABS: Albumin 3.6 g/dL (3.4-5.0); Calcium 9.3 mg/dL (8.5-10.1); Potassium 3.8 mmol/L (3.5-5.1)
[2022-08-22 07:59] LABS: BUN/Creatinine Ratio 27.7 (10.0-20.0); Bilirubin, Total 0.6 mg/dL (0.2-1.0); Total Protein 6.6 g/dL (6.4-8.2)
== END | disposition home or self-care (01) ==
LOC: LAB 06:49
PROVIDERS: ATTEND Nurse Practitioner
DX: I10 Essential (primary) hypertension (principal); E78.5 Hyperlipidemia, unspecified
CPT/HCPCS: 36415; 80053; 80061; 81001; 84443; 85025

== ENCOUNTER 2022-10-23 02:39 | Inpatient (IN) | payer OTHER ==
[~2022-10-23] VITALS: Ht 154.9 cm; Wt 58.2 kg
[~2022-10-23 02:39] MED LIST changes: -AMLO-489 PO; +AMLO1TAB22 PO; -LISI40TA11 PO; +LISI40TA16 PO
[2022-10-23 04:07] LABS: Albumin 3.3 g/dL (3.4-5.0); Calcium 8.6 mg/dL (8.5-10.1); Potassium 3.8 mmol/L (3.5-5.1)
[2022-10-23 04:08] LABS: Basophils # (auto) 0 10 ^3/uL (0-0.2); Basophils % (auto) 0.6 % (0.0-2.0); Eosinophils # (auto) 0.1 10 ^3/uL (0-0.8); Eosinophils % (auto) 1.8 % (0.0-7.0); Hematocrit 37.2 % (36.0-46.0); Hemoglobin 12.6 g/dL (12.2-16.2); Lymphocytes # (auto) 1.9 10 ^3/uL (0.4-5.4); Mean Corpuscular Hemoglobin 30.7 pg (28.0-32.0); Mean Corpuscular Hgb Conc. 33.8 g/dL (32.0-36.0); Mean Corpuscular Volume 90.8 fL (80.0-100.0); Monocytes # (auto) 0.6 10 ^3/uL (0-1.3); Monocytes % (auto) 9.9 % (0.0-12.0); Neutrophils # (auto) 3.6 10 ^3/uL (1.6-8.6); Neutrophils % (auto) 56.7 % (37.0-80.0); Red Blood Cells 4.09 10^6/uL (4.0-5.20); White Blood Cell 6.3 10^3/uL (4.4-10.8)
[2022-10-23 04:10] LABS: BUN/Creatinine Ratio 32.9 (10.0-20.0); Bilirubin, Total 0.4 mg/dL (0.2-1.0); Total Protein 6.3 g/dL (6.4-8.2)
[2022-10-23] MEDS ORDERED: ONDANSETRON HCL 4 MG/2 ML VIAL IV PRN (09:15)
[2022-10-23] MEDS ORDERED: DOCUSATE SOD 100 MG CAP PO PRN (09:15)
[2022-10-23] MEDS ORDERED: MECLIZINE HCL 25 MG TAB PO PRN (09:15)
[2022-10-23] MEDS: SODIUM CHLORIDE 0.9% 1,000 ML IV SCH (10:01)
[2022-10-23] MEDS: ASPirin 81 mg TAB PO SCH (10:02)
[2022-10-23] MEDS: LEVOTHYROXINE SODIUM 112 MCG TAB PO SCH (10:03)
[2022-10-23] MEDS: LISINOPRIL 20 MG TAB PO SCH (10:03)
[2022-10-23] MEDS: amLODIPine BESYLATE 5 MG TAB PO SCH (10:03)
[2022-10-23] MEDS: CARBAMIDE PEROXIDE 6.5% OTIC(EAR) SOLN 15ML LEFT EAR SCH ×2 (10:08→20:53)
[2022-10-23 18:42] VITALS: BP 128/59
[2022-10-23 20:00] VITALS: BP 128/59
[2022-10-23] MEDS ORDERED: LORazepam 2MG/ML-1ML VIAL IV PRN (21:45)
[2022-10-23 22:00] VITALS: BP 128/59
[2022-10-24] MEDS: SODIUM CHLORIDE 0.9% 1,000 ML IV SCH (01:55)
[2022-10-24 05:00] VITALS: BP 147/63
[2022-10-24 06:05] LABS: Basophils # (auto) 0 10 ^3/uL (0-0.2); Basophils % (auto) 0.7 % (0.0-2.0); Eosinophils # (auto) 0.1 10 ^3/uL (0-0.8); Eosinophils % (auto) 1.3 % (0.0-7.0); Hematocrit 37.1 % (36.0-46.0); Hemoglobin 12.4 g/dL (12.2-16.2); Lymphocytes # (auto) 1.8 10 ^3/uL (0.4-5.4); Lymphocytes % (auto) 26.1 % (10.0-50.0); Mean Corpuscular Hemoglobin 30.3 pg (28.0-32.0); Mean Corpuscular Hgb Conc. 33.4 g/dL (32.0-36.0); Mean Corpuscular Volume 90.8 fL (80.0-100.0); Monocytes # (auto) 0.6 10 ^3/uL (0-1.3); Monocytes % (auto) 8.3 % (0.0-12.0); Neutrophils # (auto) 4.4 10 ^3/uL (1.6-8.6); Neutrophils % (auto) 63.6 % (37.0-80.0); Red Blood Cells 4.09 10^6/uL (4.0-5.20)
[2022-10-24 06:24] LABS: Albumin 3.3 g/dL (3.4-5.0); Calcium 8.6 mg/dL (8.5-10.1); Potassium 3.7 mmol/L (3.5-5.1)
[2022-10-24 06:26] LABS: BUN/Creatinine Ratio 29.2 (10.0-20.0); Bilirubin, Total 0.6 mg/dL (0.2-1.0)
[2022-10-24 08:00] VITALS: BP 162/86
[2022-10-24 09:00] VITALS: BP 162/86
[2022-10-24] MEDS: ASPirin 81 mg TAB PO SCH (10:21)
[2022-10-24] MEDS: LISINOPRIL 20 MG TAB PO SCH (10:22)
[2022-10-24] MEDS: LEVOTHYROXINE SODIUM 112 MCG TAB PO SCH (10:22)
[2022-10-24] MEDS: amLODIPine BESYLATE 5 MG TAB PO SCH (10:23)
[2022-10-24] MEDS: CARBAMIDE PEROXIDE 6.5% OTIC(EAR) SOLN 15ML LEFT EAR SCH (10:23)
[2022-10-24] MEDS ORDERED: CARB6.5S44 OT (12:04)
[2022-10-24 14:40] VITALS: BP 162/86
== END 2022-10-24 15:37 | disposition home or self-care (01) | DRG 156 ==
LOC: ER 02:39 → OVERFLOW 09:20 → WEST WING 17:10
PROVIDERS: ADMIT Nurse Practitioner Family; ATTEND Internal Medicine Geriatric Medicine
DX: H61.23 Impacted cerumen, bilateral (principal); E03.9 Hypothyroidism, unspecified; I10 Essential (primary) hypertension; R55 Syncope and collapse; R51.9 Headache, unspecified; E11.9 Type 2 diabetes mellitus without complications; Z83.3 Family history of diabetes mellitus; Z90.49 Acquired absence of other specified parts of digestive tract; Z90.710 Acquired absence of both cervix and uterus
CPT/HCPCS: 36415; 70450; 70551; 71045; 80053; 84443; 84484; 85025; 93005; 93306; 93886; 97116; 97163; 97530; G0378

== ENCOUNTER → 2023-05-14 | Outpatient (CLI) | payer OTHER ==
[~2023-05-14] MED LIST changes: +CARB6.5S44 OT
[2023-05-14 07:08] LABS: Basophils # (auto) 0 10 ^3/uL (0-0.2); Basophils % (auto) 0.6 % (0.0-2.0); Eosinophils # (auto) 0.1 10 ^3/uL (0-0.8); Eosinophils % (auto) 1.4 % (0.0-7.0); Hematocrit 38.2 % (36.0-46.0); Hemoglobin 12.6 g/dL (12.2-16.2); Lymphocytes # (auto) 2.1 10 ^3/uL (0.4-5.4); Lymphocytes % (auto) 34.6 % (10.0-50.0); Mean Corpuscular Volume 90.9 fL (80.0-100.0); Monocytes # (auto) 0.5 10 ^3/uL (0-1.3); Monocytes % (auto) 8.7 % (0.0-12.0); Neutrophils # (auto) 3.3 10 ^3/uL (1.6-8.6); Neutrophils % (auto) 54.7 % (37.0-80.0); Red Cell Distribution Width 15.3 % (11.8-14.3)
[2023-05-14 07:35] LABS: Urine Bacteria NONE SEEN /hpf (None Seen); Urine Blood Negative /uL (Negative); Urine Clarity Clear (Clear); Urine Color Straw (Yellow); Urine Protein, UAD Negative (Negative); Urine Specific Gravity 1.016 (1.001-1.035); Urine Urobilinogen Normal (Negative); Urine WBC 1 /hpf (0 - 5); Urine pH 6.5 (5.0-8.0)
[2023-05-14 08:06] LABS: Alanine Aminotransferase 33 U/L (7-40); Albumin 4.2 g/dL (3.2-4.8); Alkaline Phosphatase 69 U/L (46-116); Anion Gap 7 (5-15); Aspartate Aminotransferase 29 U/L (13-40); BUN/Creatinine Ratio 29.3 (10.0-20.0); Blood Urea Nitrogen 22 mg/dL (9-23); Calcium 9.4 mg/dL (8.5-10.1); Carbon Dioxide 29 mmol/L (20-30); Chloride 108 mmol/L (98-107); Cholesterol 170 mg/dL (< 200); Glucose 86 mg/dL (74-106); HDL Cholesterol 54 mg/dL (40-59); LDL Cholesterol 96 mg/dL (< 100); Potassium 3.7 mmol/L (3.5-5.1); Sodium 144 mmol/L (136-145); Triglycerides 76 mg/dL (< 150)
[2023-05-14 08:07] LABS: Bilirubin, Total 0.6 mg/dL (0.2-1.0); Total Protein 6.1 g/dL (5.7-8.2)
== END | disposition home or self-care (01) ==
LOC: LAB 06:27
PROVIDERS: ATTEND Nurse Practitioner
DX: I10 Essential (primary) hypertension (principal); E11.9 Type 2 diabetes mellitus without complications
CPT/HCPCS: 36415; 80053; 80061; 81001; 83036; 84443; 85025

== ENCOUNTER → 2023-08-14 | Outpatient (CLI) | payer OTHER | END | disposition home or self-care (01) | LOC: LAB 14:13 | PROVIDERS: ATTEND Family Medicine | DX: D48.5 Neoplasm of uncertain behavior of skin (principal) ==

== ENCOUNTER → 2024-04-08 | Outpatient (CLI) | payer OTHER | END | disposition home or self-care (01) | LOC: LAB 09:25 | PROVIDERS: ATTEND Family Medicine | DX: D48.5 Neoplasm of uncertain behavior of skin (principal) ==

== ENCOUNTER → 2024-05-20 | Outpatient (CLI) | payer OTHER | END | disposition home or self-care (01) | LOC: LAB 10:00 | PROVIDERS: ATTEND Family Medicine | DX: D04.4 Carcinoma in situ of skin of scalp and neck (principal) ==

== ENCOUNTER → 2024-06-02 | Outpatient (CLI) | payer OTHER ==
[2024-06-02 07:45] LABS: Basophils # (auto) 0.1 10 ^3/uL (0-0.2); Basophils % (auto) 0.7 % (0.0-2.0); Eosinophils # (auto) 0.3 10 ^3/uL (0-0.8); Eosinophils % (auto) 3.6 % (0.0-7.0); Hematocrit 36.4 % (36.0-46.0); Hemoglobin 12.3 g/dL (12.2-16.2); Lymphocytes # (auto) 1.6 10 ^3/uL (0.4-5.4); Lymphocytes % (auto) 18.1 % (10.0-50.0); Mean Corpuscular Hemoglobin 31.1 pg (28.0-32.0); Mean Corpuscular Hgb Conc. 33.7 g/dL (32.0-36.0); Mean Corpuscular Volume 92.3 fL (80.0-100.0); Monocytes # (auto) 0.7 10 ^3/uL (0-1.3); Monocytes % (auto) 8.5 % (0.0-12.0); Neutrophils # (auto) 5.9 10 ^3/uL (1.6-8.6); Neutrophils % (auto) 69.1 % (37.0-80.0); Nucleated Red Blood Cells % 0.1 %; Platelet Count (auto) 246 10^3/uL (140-450); Red Blood Cells 3.94 10^6/uL (4.0-5.20); White Blood Cell 8.6 10^3/uL (4.4-10.8)
[2024-06-02 08:09] LABS: Urine Bacteria FEW /hpf (None Seen); Urine Blood Negative /uL (Negative); Urine Clarity Clear (Clear); Urine Color Light-Yellow (Yellow); Urine Protein, UAD Negative (Negative); Urine Specific Gravity 1.011 (1.001-1.035); Urine Squamous Epithelial Cell FEW /hpf (<5); Urine Urobilinogen Normal (Negative); Urine WBC 1 /HPF (0-5); Urine pH 6.5 (5.0-9.0)
[2024-06-02 08:32] LABS: Alanine Aminotransferase 26 U/L (7-40); Albumin 4.5 g/dL (3.2-4.8); Anion Gap 11 (5-15); Aspartate Aminotransferase 28 U/L (13-40); Blood Urea Nitrogen 20 mg/dL (9-23); Calcium 9.8 mg/dL (8.7-10.4); Carbon Dioxide 23 mmol/L (20-31); Cholesterol 171 mg/dL (< 200); Glucose 105 mg/dL (74-106); HDL Cholesterol 51 mg/dL (40-59); LDL Cholesterol 99 mg/dL (< 100); Potassium 4.1 mmol/L (3.5-5.1); Sodium 142 mmol/L (136-145); Triglycerides 106 mg/dL (< 150)
[2024-06-02 08:33] LABS: Bilirubin, Total 0.7 mg/dL (0.2-1.0); Total Protein 6.4 g/dL (5.7-8.2)
[2024-06-02 08:45] LABS: Alkaline Phosphatase 117 U/L (46-116); Chloride 108 mmol/L (98-107)
== END | disposition home or self-care (01) ==
LOC: LAB 07:12
PROVIDERS: ATTEND Nurse Practitioner
DX: I10 Essential (primary) hypertension (principal); E78.5 Hyperlipidemia, unspecified; R73.9 Hyperglycemia, unspecified
CPT/HCPCS: 36415; 80053; 80061; 81001; 83036; 84443; 85025

== ENCOUNTER 2024-06-09 11:04 | Inpatient (IN) | payer OTHER ==
[~2024-06-09] VITALS: Ht 162.6 cm; Wt 54.2 kg
[2024-06-09] MEDS: MORPHINE SULFATE INJ 2 MG/ml SYRG IV ONE (11:15)
[2024-06-09] MEDS: ONDANSETRON HCL 4 MG/2 ML VIAL IV ONE (11:15)
[2024-06-09 11:33] LABS: Urine Bacteria None Seen /hpf (None Seen)
--- NOTE | 2024-06-09 11:36 | ED.PDOC ---
Back pain HPI HPI Comments 89 y/o F BIBA, with PMHX of HLD, HTN, and hyperthyroid presents to the ED for CC back pain. Per EMS, patient has been experiencing right lower lumbar pain x5days. Patient comments on, seeing PCP for symptoms yesterday (06/08/24); patient was told pain was due to arthritis. Patient endorse on being unable to walk due to the pain. Patient denies fever, chills, body-aches, or N/V/D. No other symptoms or modifying factors at this time. Chief Complaint: Back Pain Time Seen by MD: 11:00 Primary Care Provider: RONY Reviewed Notes: Nurses Notes, Soil Scientist Notes, Medications, Allergies Allergies: Coded Allergies: NO KNOWN ALLERGIES (Unverified , 10/16/16) Home Meds Active Scripts Carbamide Peroxide (Debrox) 6.5 % Agustina, 6.5 % OT BID for 3 Days, #10 ML Prov:MALLIKA BUTLER MD 10/24/22 Reported Medications Levothyroxine Sodium (Levothyroxine Sodium) 112 Mcg Tab, 112 MCG PO DAILY for 30 Days, MCG 10/20/16 Amlodipine Besylate (Amlodipine Besylate) 5 Mg Tab, 5 MG PO DAILY for 30 Days, MG 10/20/16 Lisinopril (Lisinopril) 40 Mg Tab, 40 MG PO DAILY for 30 Days, MG 10/20/16 Information Source: Patient, Emergency Med Personnel Mode of Arrival: EMS Timing: Days Duration: Since onset Location of Back pain: (R) Lower back Severity: Mild Prehospital treatment: None Onset: Spontaneous History of: Chronic Back Pain, Arthritis Modifying Factors: Nothing Past Medical History PAST MEDICAL HISTORY: High Lipids, HTN, Thyroid Surgical History: Appendectomy, Hysterectomy, Tonsillectomy SHINGLE CUTTER History: No Pertinent SHINGLE CUTTER History Family History Family History: Unknown Social History Smoker: Non-Smoker Alcohol: Denies ETOH Use Drugs: Denies Drug Use Lives In: Home Constitutional: denies: chills, diaphoresis, fatigue, fever, malaise, sweats, weakness, others EENTM: denies: blurred vision, double vision, ear bleeding, ear discharge, ear drainage, ear pain, ear ringing, eye pain, eye redness, hearing loss, mouth pain, mouth swelling, nasal discharge, nose bleeding, nose congestion, nose pain, photophobia, tearing, throat pain, throat swelling, voice changes, others Respiratory: denies: cough, hemoptysis, orthopnea, SOB at rest, shortness of breath, SOB with excertion, stridor, wheezing, others Cardiovascular: denies: chest pain, dizzy spells, diaphoresis, Dyspnea on exertion, edema, irregular heart beat, left arm pain, lightheadedness, palpitations, PND, syncope, others Gastrointestinal: denies: abdomen distended, abdominal pain, blood streaked bowels, constipated, diarrhea, dysphagia, difficulty swallowing, hematemesis, me connor, nausea, poor appetite, poor fluid intake, rectal bleeding, rectal pain, vomiting, others Genitourinary: denies: abnormal vagina bleeding, burning, dyspareunia, dysuria, flank pain, frequency, hematuria, incontinence, pain, , vagina discharge, urgency, others Neurological: denies: dizziness, fainting, headache, left sided numbness, left sided weakness, numbness, paresthesia, pre-existing deficit, right sided numbness, right sided weakness, seizure, speech problems, tingling, tremors, weakness, others Musculoskeletal: reports: back pain; denies: gout, joint pain, joint swelling, muscle pain, muscle stiffness, neck pain, others Integumetry: denies: bruises, change in color, change in hair/nails, dryness, laceration, lesions, lumps, rash, wounds, others Allergic/Immunocompromised: denies: Difficulty Healing, Frequent Infections, Hives, Itching, others Hematologic/Lymphatic: denies: anemia, blood clots, easy bleeding, easy bruising, swollen glands, others Endocrine: denies: excessive hunger, excessive sweating, excessive thirst, excessive urination, flushing, intolerance to cold, intolerance to heat, unexplained weight gain, unexplained weight loss, others Psychiatric: denies: anxiety, bipolar disorder, depression, hopeless, panic disorder, schizophrenia, sleepless, suicidal, others All Other Systems: Reviewed and Negative Physical Exam General Appearance: Moderate Distress HEENT: Normal ENT Inspection, Pharynx Normal, TMs Normal Neck: Full Range of Motion, Non-Tender, Normal, Normal Inspection Respiratory: Chest Non-Tender, Lungs Clear, No Accessory Muscle Use, No Respiratory Distress, Normal Breath Sounds Cardiovascular: No Edema, No JVD, No Murmur, No Gallop, Normal Peripheral Pulses, Regular Rate/Rhythm Breast Exam: Deferred Gastrointestinal: No Organomegaly, Non Tender, No Pulsatile Mass, Normal Bowel Sounds, Soft Genitalia: Deferred Pelvic: Deferred Rectal: Deferred Extremities: No calf tenderness, Normal capillary refill, Normal inspection, Normal range of motion, Non-tender, No pedal edema Musculoskeletal : Location: Bilateral Extremity Location: Back Apperance: Limited ROM, Tenderness: Moderate Neurologic: Alert, mushroom cultivator II-XII nml as Tested, No Motor Deficits, Normal Affect, Normal Mood, No Sensory Deficits Cerebellar Function: Normal Reflexes: Normal Skin: Dry, Pallor, Warm Lymphatic: No Adenopathy Was a procedure done? Was a procedure done?: No Back Pain Differential Dx Differential Diagnosis: Musculoskeletal Pain, Strain X-Ray, Labs, Meds, VS Vital Signs Date Time Temp Pulse Resp B/P (MAP) Pulse Ox O2 Delivery O2 Flow Rate FiO2 06/09/24 12:33 80 80 130/75 06/09/24 11:15 80 18 130/75 06/09/24 11:14 98.6 94 16 156/64 (94) 96 Lab Test 06/09/24 12:06 06/09/24 11:20 Range/Units White Blood Count 10.2 4.4-10.8 10^3/uL Red Blood Count 4.06 4.0-5.20 10^6/uL Hemoglobin 12.3 12.2-16.2 g/dL Hematocrit 37.4 36.0-46.0 % Mean Corpuscular Volume 92.1 80.0-100.0 fL Mean Corpuscular Hemoglobin 30.4 28.0-32.0 pg Mean Corpuscular Hemoglobin Concent 32.9 32.0-36.0 g/dL Red Cell Distribution Width 14.8 H 11.8-14.3 % Platelet Count 257 140-450 10^3/uL Mean Platelet Volume 8.3 6.9-10.8 fL Neutrophils (%) (Auto) 73.1 37.0-80.0 % Lymphocytes (%) (Auto) 14.7 10.0-50.0 % Monocytes (%) (Auto) 8.0 0.0-12.0 % Eosinophils (%) (Auto) 3.1 0.0-7.0 % Basophils (%) (Auto) 1.1 0.0-2.0 % Neutrophils # (Auto) 7.5 1.6-8.6 10 ^3/uL Lymphocytes # (Auto) 1.5 0.4-5.4 10 ^3/uL Monocytes # (Auto) 0.8 0-1.3 10 ^3/uL Eosinophils # (Auto) 0.3 0-0.8 10 ^3/uL Basophils # (Auto) 0.1 0-0.2 10 ^3/uL Nucleated Red Blood Cells 0.1 % Sodium Level 137 136-145 mmol/L Potassium Level 3.9 3.5-5.1 mmol/L Chloride Level 105 98-107 mmol/L Carbon Dioxide Level 24 20-31 mmol/L Anion Gap 8 5-15 Blood Urea Nitrogen 26 H 9-23 mg/dL Creatinine 0.89 0.550-1.02 mg/dL Glomerular Filtration Rate Calc 62 >90 mL/min BUN/Creatinine Ratio 29.2 H 10.0-20.0 Serum Glucose 107 H 74-106 mg/dL Calcium Level 10.1 8.7-10.4 mg/dL Urine Color Yellow Yellow Urine Clarity Clear Clear Urine pH 6.5 5.0-9.0 Urine Specific [place] 1.022 1.001-1.035 Urine Protein Negative Negative Urine Ketones Negative Negative Urine Blood Negative Negative /uL Urine Nitrite Negative Negative Urine Bilirubin Negative Negative Urine Urobilinogen Normal Negative mg/dL Urine Leukocyte Esterase 2+ Negative /uL Urine RBC 1 0 - 4 /hpf Urine Microscopic WBC 4 0-5 /HPF Urine Squamous Epithelial Cells Few <5 /hpf Urine Bacteria None seen None Seen /hpf Urine Mucus Few None Seen Urine Glucose Normal Normal mg/dL Current Medications Medications (Trade) Dose Ordered Sig/Yas Route Start Time Stop Time Status Last Admin Morphine Sulfate 2 mg ONCE ONCE IV 06/09/24 11:15 06/09/24 11:20 DC 06/09/24 11:15 Ondansetron HCl (Zofran) 4 mg ONCE ONCE IV 06/09/24 11:15 06/09/24 11:20 DC 06/09/24 11:[address]: FINDINGS: Diffuse osteopenia. No acute subluxation. Subtle cortical irregularity of the bilateral L1 transverse processes which may represent subtle age indeterminate nondisplaced fractures. Subtle cortical irregularity at the left L2 transverse process may represent an age indeterminate nondisplaced fracture. Post kyphoplasty changes at L4. Age indeterminate moderate to severe L2 vertebral body compression fracture. Multilevel degenerative changes of the spine. Vascular atherosclerotic calcifications of the aorta. Bilateral renal cysts and hyperdense cysts. Large volume colonic stool, partially imaged. IMPRESSION: Age indeterminate moderate to severe L2 vertebral body compression fracture. No acute subluxation. Subtle cortical irregularity of the bilateral L1 transverse processes which may represent subtle age indeterminate nondisplaced fractures. Subtle cortical irregularity at the left L2 transverse process may represent an age indeterminate nondisplaced fracture. ATED BY: KEN HARRY MD DICTATED DATE/TIME: 06/09/241209 SIGNED BY: KEN HARRY MD SIGNED DATE/TIME: 06/09/241209 CC: IV Hep-Lock was established. The patient was being admitted to the hospitalist The patient was given morphine for the pain and Zofran for the nausea The patient was having intractable back pain. The urine test is positive for UTI The patient's CBC and chemistry panel are within normal limits The patient was being admitted at this time. The concern is for the indeterminate L2 vertebral body compression fracture Images Reviewed?: Images reviewed and evaluated by me Time of 1ST Reevaluation: 11:30 Reevaluation 1ST: Unchanged Patient Education/Counseling: Diagnosis, Treatment, Prognosis Family Education/Counseling: Diagnosis, Treatment, Prognosis Additional Information - I reviewed the following notes from patient's past medical encounters: 10/23/22 DX: ACUTE ON CHRONIC DIZZINESS - The following tests were ordered, and results were reviewed by me: CBC, UA, BMP, CT LS SPINE - Additional information was gathered from interviewing the following independent Historian: EMS - I reviewed and agreed with the following test results read by other provider: CT LS SPINE radiologist - I discussed treatments and results with medical personnel and: FAMILY Departure 1 Departure Time of Disposition: 12:52 Impression: Primary Impression: Lumbar compression fracture Qualified Codes: S32.000A - Wedge compression fracture of unspecified lumbar vertebra, initial encounter for closed fracture Additional Impressions: Intractable back pain UTI (urinary tract infection) Qualified Codes: N30.00 - Acute cystitis without hematuria Disposition: ADMITTED INPATIENT Admit to: Med Surg Condition: Fair Critical Care Note Critical Care Time?: No Stability Stability form required: Yes Unstable for transfer: ED Physician Assesment (Clinical assesment) Heart Score Heart Score: Heart Score Response (Comments) Value History N/A 0 EKG N/A 0 Age N/A 0 Risk Factors N/A 0 Troponin N/A 0 Total 0 I personally scribed for SARAI CALIX MD ([email or web address]) on 06/09/24 at 11:36. Electronically submitted by Twyla Rizzo [email or web address]). I personally scribed for SARAI CALIX MD ([email or web address]) on 06/09/24 at 12:39. Electronically submitted by Twyla Rizzo [email or web address]). SARAI CALIX MD Jun 09, 2024 11:36
[2024-06-09 11:50] LABS: Urine Blood Negative /uL (Negative); Urine Clarity Clear (Clear); Urine Color Yellow (Yellow); Urine Mucus FEW (None Seen); Urine Protein, UAD Negative (Negative); Urine Specific Gravity 1.022 (1.001-1.035); Urine Squamous Epithelial Cell FEW /hpf (<5); Urine Urobilinogen Normal (Negative); Urine WBC 4 /HPF (0-5); Urine pH 6.5 (5.0-9.0)
[2024-06-09 12:13] LABS: Basophils # (auto) 0.1 10 ^3/uL (0-0.2); Basophils % (auto) 1.1 % (0.0-2.0); Eosinophils # (auto) 0.3 10 ^3/uL (0-0.8); Eosinophils % (auto) 3.1 % (0.0-7.0); Hematocrit 37.4 % (36.0-46.0); Hemoglobin 12.3 g/dL (12.2-16.2); Lymphocytes # (auto) 1.5 10 ^3/uL (0.4-5.4); Lymphocytes % (auto) 14.7 % (10.0-50.0); Mean Corpuscular Hemoglobin 30.4 pg (28.0-32.0); Mean Corpuscular Hgb Conc. 32.9 g/dL (32.0-36.0); Mean Corpuscular Volume 92.1 fL (80.0-100.0); Monocytes # (auto) 0.8 10 ^3/uL (0-1.3); Neutrophils # (auto) 7.5 10 ^3/uL (1.6-8.6); Neutrophils % (auto) 73.1 % (37.0-80.0); Nucleated Red Blood Cells % 0.1 %; Platelet Count (auto) 257 10^3/uL (140-450); Red Blood Cells 4.06 10^6/uL (4.0-5.20); Red Cell Distribution Width 14.8 % (11.8-14.3); White Blood Cell 10.2 10^3/uL (4.4-10.8)
--- NOTE | 2024-06-09 12:13 | DVH ---
EXAM: CT LS SPINE WO CONTRAST HISTORY: pain COMPARISON: None CTDIvol 24.41 mGy, DLP 753.7 mGy*cm. TECHNIQUE: Multiple axial CT images of the spine were obtained using bone algorithm. Axial and coron al reformatting was done. Bone and soft tissue windows were reviewed. FINDINGS: Diffuse osteopenia. No acute subluxation. Subtle cortical irregularity of the bilateral L1 transverse processes which may represent subtle age indeterminate nondisplaced fractures. Subtle cortical irregularity at the left L2 transverse process may represent an age indeterminate non displaced fracture. Post kyphoplasty changes at L4. Age indeterminate moderate to severe L2 vertebral body compression fracture. Multilevel degenerative changes of the spine. Vascular atherosclerotic calcifications of the aorta. Bilateral renal cysts and hyperdense cysts. La rge volume colonic stool, partially imaged. IMPRESSION: Age indeterminate moderate to severe L2 vertebral body compression fracture. No acute subluxation. Subtle cortical irregularity of the bilateral L1 transverse processes which may represent subtle age indeterminate nondisplaced fractures. Subtle cortical irregularity at the left L2 transverse process may represent an age indeterminate non displaced fracture.
[2024-06-09 12:35] LABS: Anion Gap 8 (5-15); Carbon Dioxide 24 mmol/L (20-31); Chloride 105 mmol/L (98-107); Potassium 3.9 mmol/L (3.5-5.1); Sodium 137 mmol/L (136-145)
[2024-06-09 12:36] LABS: Calcium 10.1 mg/dL (8.7-10.4)
[2024-06-09 12:41] LABS: BUN/Creatinine Ratio 29.2 (10.0-20.0)
[2024-06-09 12:42] LABS: Blood Urea Nitrogen 26 mg/dL (9-23); Glucose 107 mg/dL (74-106)
[2024-06-09 13:15] VITALS: PULSE 68; RESP 20; O2SAT 96
[2024-06-09] MEDS: cefTRIAXone 1GM/50ML D5W 50 ML IV ONE (13:17)
[2024-06-09 21:15] VITALS: PULSE 70; RESP 18; O2SAT 95
--- NOTE | 2024-06-09 23:32 | DVHHPRES ---
History of Present Illness Resident Creating Document: KIMBERLY ZULUAGA RESIDENT Reason for Visit: back pain History of Present Illness An 89-year-old female with a past medical history of hypothyroidism, hyperlipidemia, and hypertension presents with worsening right lower lumbar pain for five days. The patient reports difficulty walking due to the pain. She denies fever, chills, nausea, vomiting, or recent trauma. She was evaluated by her PCP the day before presentation and was advised to go to the ED for further evaluation. Notably, imaging reveals chronic L2 vertebral body compression fractures and degenerative changes that have been known for more than five years. She was admitted for pain management and further evaluation. Additionally, urinalysis shows findings concerning for a urinary tract infection (UTI), and treatment has been initiated. 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) Surgical History: Appendectomy Tonsillectomy Medications: Levothyroxine 112 mcg PO daily Amlodipine 5 mg PO daily Lisinopril 40 mg PO daily Allergies: No known drug allergies Family History: Unknown Social History: Non-smoker Denies alcohol or drug use Lives at home Review of Systems Constitutional: No: Fever, Chills, Sweats, Weakness, Malaise, Other Eyes: No: Pain, Vision change, Conjunctivae inflammation, Eyelid inflammation, Other, Redness ENT: No: Ear pain, Ear discharge, Nose pain, Nose discharge, Nose congestion, Mouth pain, Mouth swelling, Throat pain, Throat swelling, Other Respiratory: No: Cough, Dry, Shortness of breath, SOB with excertion, Wheezing, Hemoptysis, Pleuritic Pain, Sputum, Wheezing, Other Cardiovascular: No: Chest Pain, Palpitations, Orthopnea, Paroxysmal Noc. Dyspnea, Edema, Lt Headedness, Other Gastrointestinal: No: Nausea, Vomiting, Abdominal Pain, Diarrhea, Constipation, Melena, Hematochezia, Other Genitourinary: No Dysuria, No Frequency, No Incontinence, No Hematuria, No Retention, No Other Musculoskeletal: No: other, neck pain, shoulder pain, arm pain, back pain, hand pain, leg pain, foot pain Neurological: No: Weakness, Numbness, Incoordination, Change in speech, Confusion, Seizures, Other Allergies: Coded Allergies: NO KNOWN ALLERGIES (Unverified , 10/16/16) Medications Current Medications Medications Dose Ordered Sig/Yas Route Start Time Stop Time Status Last Admin Dose Admin Ceftriaxone Sodium 50 ml @ 100 mls/hr DAILY IV 06/10/24 10:00 Acetaminophen 325 mg Q8HP PRN PO 06/09/24 22:15 Levothyroxine Sodium 112 mcg QAM PO 06/10/24 07:00 Amlodipine Besylate 5 mg DAILY PO 06/10/24 10:00 Lisinopril 20 mg DAILY PO 06/10/24 10:00 Exam Vital Signs Vital Signs Date Time Temp Pulse Resp B/P (MAP) Pulse Ox O2 Delivery O2 Flow Rate FiO2 06/09/24 22:00 79 24 146/69 (94) 95 06/09/24 21:15 Room Air* 0 21 06/09/24 11:14 98.6 General Appearance: Alert, Oriented X3, Cooperative, No acute distress HEENT: Atraumatic, PERRLA, EOMI, Mucous membr. moist/pink Respiratory: Clear to auscultation, Normal air movement Cardiovascular: Regular rate, Normal S1, Normal S2 Abdominal: Normal bowel sounds, Soft Extremities: No clubbing, No cyanosis, No edema, Normal pulses Skin: No rashes, No breakdown, No significant lesion Neuro: Normal speech, Normal tone, Sensation intact, Cranial nerves 3-12 NL, Reflexes 2+, Other (strenght 3/5 loewr ext ) Labs/Xrays Labs Test 06/09/24 12:06 06/09/24 11:20 Range/Units White Blood Count 10.2 4.4-10.8 10^3/uL Red Blood Count 4.06 4.0-5.20 10^6/uL Hemoglobin 12.3 12.2-16.2 g/dL Hematocrit 37.4 36.0-46.0 % Mean Corpuscular Volume 92.1 80.0-100.0 fL Mean Corpuscular Hemoglobin 30.4 28.0-32.0 pg Mean Corpuscular Hemoglobin Concent 32.9 32.0-36.0 g/dL Red Cell Distribution Width 14.8 H 11.8-14.3 % Platelet Count 257 140-450 10^3/uL Mean Platelet Volume 8.3 6.9-10.8 fL Neutrophils (%) (Auto) 73.1 37.0-80.0 % Lymphocytes (%) (Auto) 14.7 10.0-50.0 % Monocytes (%) (Auto) 8.0 0.0-12.0 % Eosinophils (%) (Auto) 3.1 0.0-7.0 % Basophils (%) (Auto) 1.1 0.0-2.0 % Neutrophils # (Auto) 7.5 1.6-8.6 10 ^3/uL Lymphocytes # (Auto) 1.5 0.4-5.4 10 ^3/uL Monocytes # (Auto) 0.8 0-1.3 10 ^3/uL Eosinophils # (Auto) 0.3 0-0.8 10 ^3/uL Basophils # (Auto) 0.1 0-0.2 10 ^3/uL Nucleated Red Blood Cells 0.1 % Sodium Level 137 136-145 mmol/L Potassium Level 3.9 3.5-5.1 mmol/L Chloride Level 105 98-107 mmol/L Carbon Dioxide Level 24 20-31 mmol/L Anion Gap 8 5-15 Blood Urea Nitrogen 26 H 9-23 mg/dL Creatinine 0.89 0.550-1.02 mg/dL Glomerular Filtration Rate Calc 62 >90 mL/min BUN/Creatinine Ratio 29.2 H 10.0-20.0 Serum Glucose 107 H 74-106 mg/dL Calcium Level 10.1 8.7-10.4 mg/dL Urine Color Yellow Yellow Urine Clarity Clear Clear Urine pH 6.5 5.0-9.0 Urine Specific [place] 1.022 1.001-1.035 Urine Protein Negative Negative Urine Ketones Negative Negative Urine Blood Negative Negative /uL Urine Nitrite Negative Negative Urine Bilirubin Negative Negative Urine Urobilinogen Normal Negative mg/dL Urine Leukocyte Esterase 2+ Negative /uL Urine RBC 1 0 - 4 /hpf Urine Microscopic WBC 4 0-5 /HPF Urine Squamous Epithelial Cells Few <5 /hpf Urine Bacteria None seen None Seen /hpf Urine Mucus Few None Seen Urine Glucose Normal Normal mg/dL Assessment/Plan Assessment/Plan Assessment & Plan: #Intractable pain #L2 Vertebral Compression Fracture admitted for pain management with analgesics. Lumbar spine MRI #Urinary Tract Infection- acute cystitis : Ceftriaxone IV Urine culture pending #Hypothyroidism #Hypertension #Hyperlipidemia Continue home medications. Case discussed with Dr Moss Time spent on care 23 min Plan discussed with: Patient, Other (rn) My Orders Orders - KIMBERLY ZULUAGA RESIDENT Procedure Category Date Status Time Admit ADMIT 06/09/24 Transmitted 22:02 Ceftriaxone 1gm/50ml PHA 06/10/24 In Process D5w (Rocephin) 10:00 Acetaminophen Tablet PHA 06/09/24 In Process (Tylenol Tablet) 22:15 Levothyroxine Tablet PHA 06/10/24 In Process (Synthroid Tablet) 07:00 Amlodipine Tablet PHA 06/10/24 In Process (Norvasc Tablet) 10:00 Lisinopril Tablet PHA 06/10/24 In Process (Zestril Tablet) 10:00 Date of Service: Jun 09, 2024 Billing Provider: GOLDIE MOSS MD Common Visit Codes: [id number] INP/OBS CARE (HIGH) KIMBERLY ZULUAGA RESIDENT Jun 09, 2024 23:32 GOLDIE MOSS MD Jun 10, 2024 23:29
[2024-06-10] VITALS (9 sets, daily range): BP systolic 128–149; BP diastolic 51–90; PULSE 82–97; RESP 15–20; TEMP 97.5–100.3; O2SAT 91–97
[2024-06-10] MEDS ORDERED: LOSA-535 PO (01:45)
[2024-06-10] MEDS ORDERED: HYDR25TA4 PO (01:46)
[2024-06-10] MEDS: LEVOTHYROXINE SODIUM 112 MCG TAB PO SCH (06:11)
--- NOTE | 2024-06-10 09:25 | DVH ---
MRI LUMBAR SPINE CLINICAL HISTORY: l2 fracture TECHNIQUE: Multi planar, multi sequence MR images of the lumbar spine without intravenous contrast. Comparison: None FINDINGS: There is severe acute to subacute compression fracture of the L2 vertebral body with approximately 80 % height loss. There are underlying marrow edema signal changes. There is mild retropulsion of the p osterior superior margins of the L2 vertebral body. There is intervertebral fluid signal in the L1-L2 disc space. There is also acute to sub acute compression deformity of the L1 inferior endplate with underlying ma rrow edema. There is less than 25% height loss. There is no significant posterior retropulsion. There is a severe chronic compression deformity of the L4 vertebral body with approximately 80% heigh t loss. There is retropulsion of the posterior superior margins of the L4 vertebral body. Remaining lumbar vertebral bodies demonstrate normal height and marrow signal. The conus terminates a t an appropriate level and demonstrates normal caliber and signal. There is mildly exaggerated lumbar lordosis.. There are multilevel degenerative changes with disc space narrowing and facet arthropathy . There is a 4.7 cm lesion in the lower pole of the left kidney demonstrating heterogeneous signal. T here are additional scattered bilateral renal cysts some of which are complicated with intrinsic T1 s ignal. At L1-L2 there is posterior disc osteophyte complex and bilateral facet arthropathy. There is indenta tion of the ventral thecal sac without canal stenosis. There is [id number] bilateral neural for aminal stenosis. At L2-L3 there is disc bulge and bilateral facet arthropathy. There is mild indentation ventral theca l sac without canal stenosis. There is no significant foraminal stenosis. At L3-L4 there is posterior disc osteophyte complex and bilateral facet arthropathy there is mild jennifer tral canal stenosis with effacement of the lateral recesses. There is moderate bilateral neural rolanda inal stenosis. At L4-L5 there is grade 1 retrolisthesis of L4 on L5. There is posterior disc osteophyte complex and bilateral facet arthropathy. There is no significant spinal canal stenosis. There is moderate to sev ere bilateral neural foraminal stenosis. At L5-S1 there is disc bulge and bilateral facet arthropathy. There is mild central canal stenosis. T here is mild right and [id number] left neural foraminal stenosis. IMPRESSION: 1. There is severe acute to subacute compression fracture of the L2 vertebral body with approximately 80% height loss. There is intervertebral fluid signal at the L1-L2 disc space. 2. There is also a mild acute to subacute compression deformity of the L1 inferior endplate with less than 25% height loss. 3. Severe chronic compression deformity of the L4 vertebral body with approximately 80% height loss. 4. Multilevel degenerative changes in the lumbar spine as described by levels above. 5. Nonspecific 4.7 cm lesion with heterogeneous signal in the lower pole of the left kidney. Further evaluation with dedicated CT or MRI abdomen with contrast is recommended. HS:Y
[2024-06-10] MEDS: LISINOPRIL 20 MG TAB PO SCH (09:35)
[2024-06-10] MEDS: cefTRIAXone 1GM/50ML D5W 50 ML IV SCH (09:35)
[2024-06-10] MEDS: amLODIPine BESYLATE 5 MG TAB PO SCH (09:35)
[2024-06-10 10:03] LABS: Basophils # (auto) 0.1 10 ^3/uL (0-0.2); Basophils % (auto) 0.9 % (0.0-2.0); Eosinophils # (auto) 0.3 10 ^3/uL (0-0.8); Eosinophils % (auto) 4.2 % (0.0-7.0); Hematocrit 37.6 % (36.0-46.0); Hemoglobin 12.2 g/dL (12.2-16.2); Lymphocytes # (auto) 1.1 10 ^3/uL (0.4-5.4); Lymphocytes % (auto) 14.1 % (10.0-50.0); Mean Corpuscular Hemoglobin 30.4 pg (28.0-32.0); Mean Corpuscular Hgb Conc. 32.4 g/dL (32.0-36.0); Mean Corpuscular Volume 93.8 fL (80.0-100.0); Monocytes # (auto) 0.6 10 ^3/uL (0-1.3); Monocytes % (auto) 7.4 % (0.0-12.0); Neutrophils # (auto) 5.7 10 ^3/uL (1.6-8.6); Neutrophils % (auto) 73.4 % (37.0-80.0); Nucleated Red Blood Cells % 0.1 %; Platelet Count (auto) 270 10^3/uL (140-450); Red Cell Distribution Width 14.9 % (11.8-14.3); White Blood Cell 7.8 10^3/uL (4.4-10.8)
[2024-06-10 10:20] LABS: Alanine Aminotransferase 27 U/L (7-40); Anion Gap 12 (5-15); Aspartate Aminotransferase 28 U/L (13-40); BUN/Creatinine Ratio 24.1 (10.0-20.0); Blood Urea Nitrogen 19 mg/dL (9-23); Calcium 9.7 mg/dL (8.7-10.4); Carbon Dioxide 23 mmol/L (20-31); Chloride 104 mmol/L (98-107); Magnesium 1.9 mg/dL (1.6-2.6); Sodium 139 mmol/L (136-145)
[2024-06-10 10:21] LABS: Bilirubin, Total 0.6 mg/dL (0.2-1.0); Total Protein 5.9 g/dL (5.7-8.2)
[2024-06-10 10:32] LABS: Alkaline Phosphatase 137 U/L (46-116); Glucose 107 mg/dL (74-106)
[2024-06-10] MEDS ORDERED: MORPHINE SULFATE INJ 2 MG/ml SYRG IV PRN (11:00)
[2024-06-10] MEDS: BACLOFEN 10 MG TAB PO ONE (12:00)
--- NOTE | 2024-06-10 13:51 | DVHINCON2 ---
Consultation - Spinal Surgery Date Seen: Jun 10, 2024 Referring Physician Referring Physician Attending Doctor: Elijah Allen Resident Resident Creating Document: KIMBERLY ZULUAGA Reason for Consultation Reason for Visit: back pain History of Present Illness History of Present Illness History of Present Illness An 89-year-old female with a past medical history of hypothyroidism, hyperlipidemia, and hypertension presents with worsening right lower lumbar pain for five days. The patient reports difficulty walking due to the pain. She denies fever, chills, nausea, vomiting, or recent trauma. She was evaluated by her PCP the day before presentation and was advised to go to the ED for further evaluation. Notably, imaging reveals chronic L2 vertebral body compression fractures and degenerative changes that have been known for more than five years. She was admitted for pain management and further evaluation. Spine H and P, patient did report having a fall several years ago and she was in [place] that slowly resolved on his own without any invasive surgery patient d id say that she did get some sort of injections for her fractures many years ago however was told that her bones are too weak to support any further orthopedic spine surgery. 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) Surgical History: Appendectomy Tonsillectomy Family and Social History Family and Social History negative family hx negative social hx Allergies and medications Allergies: Coded Allergies: NO KNOWN ALLERGIES (Unverified , 10/16/16) Home Meds Active Scripts Carbamide Peroxide (Debrox) 6.5 % Agustina, 6.5 % OT BID for 3 Days, #10 ML Prov:MALLIKA BUTLER MD 10/24/22 Reported Medications Hydrochlorothiazide (Hydrochlorothiazide) 25 Mg Tab, 25 MG PO DAILY, MG 06/10/24 Losartan Potassium (Losartan Potassium) 100 Mg Tab, 100 MG PO DAILY, MG 06/10/24 Levothyroxine Sodium (Levothyroxine Sodium) 112 Mcg Tab, 112 MCG PO DAILY for 30 Days, MCG 10/20/16 Amlodipine Besylate (Amlodipine Besylate) 5 Mg Tab, 5 MG PO DAILY for 30 Days, MG 10/20/16 Discontinued Reported Medications Lisinopril (Lisinopril) 40 Mg Tab, 40 MG PO DAILY for 30 Days, MG 10/20/16 Review of systems Review of Systems: HEENT:Normal, CVS:Normal, RESPIRATORY:Normal, GI:Normal, :Normal, MSK:Normal, NEURO:Normal Examination Vital signs Imaging MRI LUMBAR SPINE CLINICAL HISTORY: l2 fracture TECHNIQUE: Multi planar, multi sequence MR images of the lumbar spine without intravenous contrast. Comparison: None FINDINGS: There is severe acute to subacute compression fracture of the L2 vertebral body with approximately 80% height loss. There are underlying marrow edema signal changes. There is mild retropulsion of the posterior superior margins of the L2 vertebral body. There is intervertebral fluid signal in the L1-L2 disc space. There is also acute to sub acute compression deformity of the L1 inferior endplate with underlying marrow edema. There is less than 25% height loss. There is no significant posterior retropulsion. There is a severe chronic compression deformity of the L4 vertebral body with approximately 80% height loss. There is retropulsion of the posterior superior margins of the L4 vertebral body. Remaining lumbar vertebral bodies demonstrate normal height and marrow signal. The conus terminates at an appropriate level and demonstrates normal caliber and signal. There is mildly exaggerated lumbar lordosis.. There are multilevel degenerative changes with disc space narrowing and facet arthropathy. There is a 4.7 cm lesion in the lower pole of the left kidney demonstrating heterogeneous signal. There are additional scattered bilateral renal cysts some of which are complicated with intrinsic T1 signal. At L1-L2 there is posterior disc osteophyte complex and bilateral facet arthropathy. There is indentation of the ventral thecal sac without canal stenosis. There is [id number]-[id number] bilateral neural foraminal stenosis. At L2-L3 there is disc bulge and bilateral facet arthropathy. There is mild indentation ventral thecal sac without canal stenosis. There is no significant foraminal stenosis. At L3-L4 there is posterior disc osteophyte complex and bilateral facet arthropathy there is mild central canal stenosis with effacement of the lateral recesses. There is moderate bilateral neural foraminal stenosis. At L4-L5 there is grade 1 retrolisthesis of L4 on L5. There is posterior disc osteophyte complex and bilateral facet arthropathy. There is no significant spinal canal stenosis. There is moderate to severe bilateral neural foraminal stenosis. At L5-S1 there is disc bulge and bilateral facet arthropathy. There is mild central canal stenosis. There is mild right and [id number] left neural foraminal stenosis. IMPRESSION: 1. There is severe acute to subacute compression fracture of the L2 vertebral body with approximately 80% height loss. There is intervertebral fluid signal at the L1-L2 disc space. 2. There is also a mild acute to subacute compression deformity of the L1 inferior endplate with less than 25% height loss. 3. Severe chronic compression deformity of the L4 vertebral body with approximately 80% height loss. 4. Multilevel degenerative changes in the lumbar spine as described by levels above. 5. Nonspecific 4.7 cm lesion with heterogeneous signal in the lower pole of the left kidney. Further evaluation with dedicated CT or MRI abdomen with contrast is recommended. EXAM: CT LS SPINE WO CONTRAST HISTORY: pain COMPARISON: None CTDIvol 24.41 mGy, DLP 753.7 mGy*cm. TECHNIQUE: Multiple axial CT images of the spine were obtained using bone algorithm. Axial and coronal reformatting was done. Bone and soft tissue windows were reviewed. FINDINGS: Diffuse osteopenia. No acute subluxation. Subtle cortical irregularity of the bilateral L1 transverse processes which may represent subtle age indeterminate nondisplaced fractures. Subtle cortical irregularity at the left L2 transverse process may represent an age indeterminate nondisplaced fracture. Post kyphoplasty changes at L4. Age indeterminate moderate to severe L2 vertebral body compression fracture. Multilevel degenerative changes of the spine. Vascular atherosclerotic calcifications of the aorta. Bilateral renal cysts and hyperdense cysts. Large volume colonic stool, partially imaged. IMPRESSION: Age indeterminate moderate to severe L2 vertebral body compression fracture. No acute subluxation. Subtle cortical irregularity of the bilateral L1 transverse processes which may represent subtle age indeterminate nondisplaced fractures. Subtle cortical irregularity at the left L2 transverse process may represent an age indeterminate nondisplaced fracture. Vital Signs Date Time Temp Pulse Resp B/P (MAP) Pulse Ox O2 Delivery O2 Flow Rate FiO2 06/10/24 12:46 100.3 85 16 134/51 (78) 91 100.3 06/10/24 07:46 Room Air* 0 21 Medications Current Medications Medications (Trade) Dose Ordered Sig/Yas Route PRN Reason Start Time Stop Time Status Last Admin Ceftriaxone Sodium 50 ml @ 100 mls/hr DAILY IV 06/10/24 10:00 06/10/24 09:35 Acetaminophen (Tylenol Tablet) 325 mg Q8HP PRN PO PAIN SCALE 1-3 OR TEMP>100.4 06/09/24 22:15 Levothyroxine Sodium (Synthroid Tablet) 112 mcg QAM PO 06/10/24 07:00 06/10/24 06:11 Amlodipine Besylate (Norvasc Tablet) 5 mg DAILY PO 06/10/24 10:00 06/10/24 09:35 Lisinopril (Zestril Tablet) 20 mg DAILY PO 06/10/24 10:00 06/10/24 09:35 Acetaminophen/ Hydrocodone Bitart ([place] 5/325MG Tab) 1 tab Q4HPRN PRN PO MODERATE PAIN (4-6 PAIN SCALE) 06/10/24 11:00 Morphine Sulfate 1 mg Q4HP PRN IV SEVERE PAIN (7-10 PAIN SCALE) 06/10/24 11:00 Baclofen (Liorisal Tablet) 5 mg HS PO 06/10/24 22:00 Laboratory Labs Test 06/10/24 09:30 06/09/24 11:20 Range/Units White Blood Count 7.8 4.4-10.8 10^3/uL Red Blood Count 4.00 4.0-5.20 10^6/uL Hemoglobin 12.2 12.2-16.2 g/dL Hematocrit 37.6 36.0-46.0 % Mean Corpuscular Volume 93.8 80.0-100.0 fL Mean Corpuscular Hemoglobin 30.4 28.0-32.0 pg Mean Corpuscular Hemoglobin Concent 32.4 32.0-36.0 g/dL Red Cell Distribution Width 14.9 H 11.8-14.3 % Platelet Count 270 140-450 10^3/uL Mean Platelet Volume 8.6 6.9-10.8 fL Neutrophils (%) (Auto) 73.4 37.0-80.0 % Lymphocytes (%) (Auto) 14.1 10.0-50.0 % Monocytes (%) (Auto) 7.4 0.0-12.0 % Eosinophils (%) (Auto) 4.2 0.0-7.0 % Basophils (%) (Auto) 0.9 0.0-2.0 % Neutrophils # (Auto) 5.7 1.6-8.6 10 ^3/uL Lymphocytes # (Auto) 1.1 0.4-5.4 10 ^3/uL Monocytes # (Auto) 0.6 0-1.3 10 ^3/uL Eosinophils # (Auto) 0.3 0-0.8 10 ^3/uL Basophils # (Auto) 0.1 0-0.2 10 ^3/uL Nucleated Red Blood Cells 0.1 % Sodium Level 139 136-145 mmol/L Potassium Level 4.0 3.5-5.1 mmol/L Chloride Level 104 98-107 mmol/L Carbon Dioxide Level 23 20-31 mmol/L Anion Gap 12 5-15 Blood Urea Nitrogen 19 9-23 mg/dL Creatinine 0.79 0.550-1.02 mg/dL Glomerular Filtration Rate Calc 71 >90 mL/min BUN/Creatinine Ratio 24.1 H 10.0-20.0 Serum Glucose 107 H 74-106 mg/dL Calcium Level 9.7 8.7-10.4 mg/dL Magnesium Level 1.9 1.6-2.6 mg/dL Total Bilirubin 0.6 0.2-1.0 mg/dL Aspartate Amino Transferase (AST) 28 13-40 U/L Alanine Aminotransferase (ALT) 27 7-40 U/L Alkaline Phosphatase 137 H 46-116 U/L Total Protein 5.9 5.7-8.2 g/dL Albumin 4.0 3.2-4.8 g/dL Thyroid Stimulating Hormone (TSH) 4.11 0.55-4.78 uIU/mL Urine Color Yellow Yellow Urine Clarity Clear Clear Urine pH 6.5 5.0-9.0 Urine Specific [place] 1.022 1.001-1.035 Urine Protein Negative Negative Urine Ketones Negative Negative Urine Blood Negative Negative /uL Urine Nitrite Negative Negative Urine Bilirubin Negative Negative Urine Urobilinogen Normal Negative mg/dL Urine Leukocyte Esterase 2+ Negative /uL Urine RBC 1 0 - 4 /hpf Urine Microscopic WBC 4 0-5 /HPF Urine Squamous Epithelial Cells Few <5 /hpf Urine Bacteria None seen None Seen /hpf Urine Mucus Few None Seen Urine Glucose Normal Normal mg/dL Examination: GENERAL:Normal, HEENT:Normal, NECK:Normal, LUNGS:Normal, CVS:Normal, ABDOMEN:Normal, MSK:Abnormal (Patient is experiencing muscle spasms with twisting motions to her back), SKIN:Normal, NEURO:Normal (Sensation and motion intact to all extremities), :Normal Problem List/Assessment/Plan Problems: (1) Intractable back pain Assessment and Plan Acute, subacute compression fracture of L2, L1 compression deformity, L4-5 spondylolisthesis, foraminal stenosis at L1-2, chronic compression fracture of L4, degenerative disc disease multilevel - patient is not a surgical candidate at this time due to bone density concerns, she has been managing her pain and discomfort for the past seven years with many of these chronic fractures present. - conservative management is the chosen path of treatment at this point in time considering the patient's poor bone health. < ensure adequate pain treatment with oral analgesics and regular scheduled muscle relaxers to be given prior to physical therapy. < patient has been using a back brace at home, family will bring brace in. recommend formal physical therapy evaluation and treatment recommendations with and without the brace in place < if physical therapy agrees this patient may benefit from a rehab placement to help with strength, posture, flexibility < continue supportive care per admitting team's discretion < recommend consult of phy therapist to assist with bone density issues If the patient would like to have outpatient follow-up once she has seen a phy therapist Call [phone] for a appointment [address] [place] [address], [place] [address] Dr Vik Dennis Call with questions Charlie Mai [facility] Orthopaedic Spine Surgery nurse practitioner For Dr Mayda Dennis Patient was examined, chart reviewed, labs evaluated, and diagnostic studies and findings analyzed. Case was discussed with Dr. Vik Dennis who formulated the plan of care. This medical document was created using an electronic medical record system with [employer] dictation system. Although this document has been carefully reviewed, there might still be some phonetic and typographical errors. These areas are purely typographical due to imperfections of the software programs, and do not reflect any compromise in the patient's medical care. Plan discussed with Plan discussed with: Patient, Other (Family ) MARY MAI NP Jun 10, 2024 13:51
--- NOTE | 2024-06-10 15:22 | DVHPNRES ---
Progress Note Date Seen: Jun 10, 2024 Resident Creating Document: BRENNAN THAYER RESIDENT Medical Necessity Reason Pt with a Central, PICC or Fol: No Subjective Review of Systems Patient is 89 years old female with past medical history of hypertension, hyperlipidemia, hypothyroidism, history of back surgery due to fracture and spinal stenosis of the [facility] 3-4 years before came with a complaint of back pain. As per patient patient has been having back pain for last 3 weeks. Patient initially went to see PCP and outpatient x-ray was done history revealed arthritis but pain was not getting any worse with treatment. Due to worsening intractable pain, 10/10, aggravated with movement no relieving factor came to the ER for further evaluation and care. Initial lab workup revealed BUN 26, blood sugar 107, urinalysis leukocyte 2+, RBC 1, WBC 4, CT spine revealed-Age indeterminate moderate to severe L2 vertebral body compression fracture.No acute subluxation.Subtle cortical irregularity of the bilateral L1 transverse processes which may represent subtle age indeterminate nondisplaced fractures. Subtle cortical irregularity at the left L2 transverse process may represent an age indeterminate nondisplaced fracture. MRI of the spine revealed-There is severe acute to subacute compression fracture of the L2 vertebral body with approximately 80% height loss. There is intervertebral fluid signal at the L1-L2 disc space. There is also a mild acute to subacute compression deformity of the L1 inferior endplate with less than 25% height loss. Severe chronic compression deformity of the L4 vertebral body with approximately 80% height loss. Multilevel degenerative changes in the lumbar spine as described by levels above. Nonspecific 4.7 cm lesion with heterogeneous signal in the lower pole of the left kidney. Further evaluation with dedicated CT or MRI abdomen with contrast is recommended. PMH-hypertension, hyperlipidemia, hypothyroidism, PSH- history of back surgery due to fracture and spinal stenosis of the [facility] 3-4 years before Allergy- NKDA Personal History/ Social History- denies smoking/alcoholism/drug abuse, lives at home Patient was seen today at the bedside. Cardiovascular- deny acute chest pain or shortness of breath or cough or palpitation Respiratory denies cough or short of breath or wheezing Gastrointestinal- denies any rectal bleeding, nausea or vomiting Neurological- denies acute dysarthria, dysphagia, change in vision Psychiatry- denies depression or SI or HI Skin- denies acute rash or purpura Patient was seen today for clinical evaluation. Labs and chart reviewed. Patient complains of ongoing back pain, 9 to 02/03. CT scan MRI revealed compression fracture of the lumbar 2 and lumbar 4 vertebra with degenerative changes. Ordered spinal surgery consult for further evaluation care. Objective vital signs Vital Sign Date Time Temp Pulse Resp B/P (MAP) Pulse Ox O2 Delivery O2 Flow Rate FiO2 06/10/24 12:46 100.3 85 16 134/51 (78) 91 100.3 06/10/24 07:46 Room Air* 0 21 Total Intake and Output 06/09/24 06/09/24 06/10/24 15:00 23:00 07:00 Intake Total 0 ml Balance 0 ml medications Current Medications Medications Dose Ordered Sig/Yas Route Start Time Stop Time Status Last Admin Dose Admin Ceftriaxone Sodium 50 ml @ 100 mls/hr DAILY IV 06/10/24 10:00 06/10/24 09:35 100 MLS/HR Acetaminophen 325 mg Q8HP PRN PO 06/09/24 22:15 Levothyroxine Sodium 112 mcg QAM PO 06/10/24 07:00 06/10/24 06:11 112 MCG Amlodipine Besylate 5 mg DAILY PO 06/10/24 10:00 06/10/24 09:35 5 MG Lisinopril 20 mg DAILY PO 06/10/24 10:00 06/10/24 09:35 20 MG Acetaminophen/ Hydrocodone Bitart 1 tab Q4HPRN PRN PO 06/10/24 11:00 Morphine Sulfate 1 mg Q4HP PRN IV 06/10/24 11:00 Baclofen 5 mg HS PO 06/10/24 22:00 Examination General examination- awake alert, oriented HEENT- PEERLA, no acute nasal discharge Cardiovascular- S1-S2 audible, rate and rhythm regular, no murmur Respiratory- CTAB, no wheeze or rhonchi Gastrointestinal-nontender, bowel sound+. Nondistended Musculoskeletal-no acute joint swelling or tenderness or redness# Lower extremity- no leg edema Neurological- cranial nerves intact, no acute dysarthria or dysphagia Psychiatry- denies depression or SI or HI Skin- no acute rash or purpura laboratory and microbiology Laboratory Tests 06/10/24 09:30 Test 06/10/24 09:30 Range/Units Serum Glucose 107 H 74-106 mg/dL Problem List/Assessment/Plan Problem List/Assessment/Plan Intractable back pain Rule out acute spinal stenosis or any other neurological deficit Compensation fracture of the lumbar 2 and lumbar 4 vertebra Degenerative change of the spine Hypertensive heart disease Hypothyroidism Hyperlipidemia Suspected UTI Nonspecific 4.7 cm lesion with heterogeneous signal in the lower pole of the left kidney. Plan -continue pain medication as prescribed Continue baclofen 5 mg q.h.s. Continue levothyroxine 112 mcg p.o. q.a.m. Continue amlodipine 5 mg p.o. daily Continue lisinopril 20 mg p.o. daily Ordered spinal surgery consult for further evaluation and care Patient was counseled to follow up with the outpatient for further evaluation and care Goals of care/advance care planning; FULL CODE; discussed with the patient >15 minutes PUD prophylaxis: Famotidine DVT prophylaxis: Lovenox Plan discussed with Dr. Keith , nursing staff, patient Total time spent on patient evaluation, chart review, assessment and plan, discussion discussion >31 minutes Plan discussed with: Patient Plan discussed with: Patient, Other (RN) My Orders My Orders Orders - BRENNAN THAYER Procedure Category Date Status Time Urine Bacterial ADAN 06/10/24 Uncollected Culture 08:27 Hydrocodone-Acet PHA 06/10/24 In Process 5/325mg Tab ([place] 11:00 Morphine Sulfate PHA 06/10/24 In Process Injection 11:00 Baclofen Tablet PHA 06/10/24 In Process (Liorisal Tablet) 22:00 Pt Request For Service PT 06/10/24 Logged 11:12 Consultdr. Vik CONS 06/10/24 Transmitted [place](Spine) 11:14 Date of Service: Jun 10, 2024 Billing Provider: WILIAN WEST MD Common Visit Codes: [id number] INP/OBS CARE(HIGH) BRENNAN THAYER Jun 10, 2024 15:22 WILIAN WEST MD Jun 13, 2024 00:15
[2024-06-10] MEDS: ENOXAPARIN SOD 40 MG/0.4 ML SYRINGE SC ONE (15:30)
[2024-06-10] MEDS: HYDROcodone-ACET 5/325MG TAB PO ONE (17:13)
[2024-06-10] MEDS: BACLOFEN 10 MG TAB PO SCH (21:24)
[2024-06-10] MEDS: FAMOTIDINE 20 MG TAB PO SCH (21:25)
[2024-06-11] VITALS (7 sets, daily range): BP systolic 109–148; BP diastolic 46–69; PULSE 71–86; RESP 16–20; TEMP 97.7–98.3; O2SAT 94–100
[2024-06-11 06:46] LABS: Chloride 104 mmol/L (98-107); Potassium 3.6 mmol/L (3.5-5.1); Sodium 139 mmol/L (136-145)
[2024-06-11 06:47] LABS: Anion Gap 9 (5-15); Calcium 9.8 mg/dL (8.7-10.4); Carbon Dioxide 26 mmol/L (20-31)
[2024-06-11 06:52] LABS: BUN/Creatinine Ratio 29.9 (10.0-20.0); Glucose 85 mg/dL (74-106)
[2024-06-11 06:57] LABS: Blood Urea Nitrogen 23 mg/dL (9-23)
[2024-06-11] MEDS: ENOXAPARIN SOD 40 MG/0.4 ML SYRINGE SC SCH (10:52)
[2024-06-11] MEDS: ACETAMINOPHEN 325 MG TAB PO PRN (11:03)
[2024-06-11 11:13] LABS: Anion Gap 8 (5-15); Carbon Dioxide 28 mmol/L (20-31); Chloride 103 mmol/L (98-107); Potassium 3.7 mmol/L (3.5-5.1); Sodium 139 mmol/L (136-145)
[2024-06-11 11:19] LABS: BUN/Creatinine Ratio 27.1 (10.0-20.0); Blood Urea Nitrogen 23 mg/dL (9-23)
[2024-06-11 11:23] LABS: Glucose 160 mg/dL (74-106)
--- NOTE | 2024-06-11 13:38 | DVHPNRES ---
Progress Note Date Seen: Jun 11, 2024 Resident Creating Document: BRENNAN THAYER RESIDENT Medical Necessity Reason Pt with a Central, PICC or Fol: No Subjective Review of Systems Patient is 89 years old female with past medical history of hypertension, hyperlipidemia, hypothyroidism, history of back surgery due to fracture and spinal stenosis of the [facility] 3-4 years before came with a complaint of back pain. As per patient patient has been having back pain for last 3 weeks. Patient initially went to see PCP and outpatient x-ray was done history revealed arthritis but pain was not getting any worse with treatment. Due to worsening intractable pain, 10/10, aggravated with movement no relieving factor came to the ER for further evaluation and care. Initial lab workup revealed BUN 26, blood sugar 107, urinalysis leukocyte 2+, RBC 1, WBC 4, CT spine revealed-Age indeterminate moderate to severe L2 vertebral body compression fracture.No acute subluxation.Subtle cortical irregularity of the bilateral L1 transverse processes which may represent subtle age indeterminate nondisplaced fractures. Subtle cortical irregularity at the left L2 transverse process may represent an age indeterminate nondisplaced fracture. MRI of the spine revealed-There is severe acute to subacute compression fracture of the L2 vertebral body with approximately 80% height loss. There is intervertebral fluid signal at the L1-L2 disc space. There is also a mild acute to subacute compression deformity of the L1 inferior endplate with less than 25% height loss. Severe chronic compression deformity of the L4 vertebral body with approximately 80% height loss. Multilevel degenerative changes in the lumbar spine as described by levels above. Nonspecific 4.7 cm lesion with heterogeneous signal in the lower pole of the left kidney. Further evaluation with dedicated CT or MRI abdomen with contrast is recommended. PMH-hypertension, hyperlipidemia, hypothyroidism, PSH- history of back surgery due to fracture and spinal stenosis of the [facility] 3-4 years before Allergy- NKDA Personal History/ Social History- denies smoking/alcoholism/drug abuse, lives at home Patient was seen today at the bedside. Cardiovascular- deny acute chest pain or shortness of breath or cough or palpitation Respiratory denies cough or short of breath or wheezing Gastrointestinal- denies any rectal bleeding, nausea or vomiting Neurological- denies acute dysarthria, dysphagia, change in vision Psychiatry- denies depression or SI or HI Skin- denies acute rash or purpura Patient was seen today for clinical evaluation. Labs and chart reviewed. Patient reported pain is getting better. Patient was seen by spinal surgeon, recommendation reviewed and appreciated. Patient is also evaluated by Physical therapy and recommended for 1 more day of stay for further physical therapy. Plan is to discharge patient home tomorrow with pain medication and muscle relaxant, referral to bioinformatics developer, referral to pain Medicine for further evaluation and care on discharge. As per spinal surgeon patient is not a good candidate for surgical intervention. Spinal surgeon recommended for pain management, follow up with the bioinformatics developer to assist with bone density issues , physical therapy, Objective vital signs Vital Sign Date Time Temp Pulse Resp B/P (MAP) Pulse Ox O2 Delivery O2 Flow Rate FiO2 06/11/24 10:51 148/65 06/11/24 08:20 98.1 86 16 100 98.1 06/10/24 20:00 Room Air* 0 21 Total Intake and Output 06/10/24 06/10/24 06/11/24 15:00 23:00 07:00 Intake Total 50 ml 400 ml 240 ml Balance 50 ml 400 ml 240 ml medications Current Medications Medications Dose Ordered Sig/Yas Route Start Time Stop Time Status Last Admin Dose Admin Ceftriaxone Sodium 50 ml @ 100 mls/hr DAILY IV 06/10/24 10:00 06/11/24 10:52 100 MLS/HR Acetaminophen 325 mg Q8HP PRN PO 06/09/24 22:15 06/11/24 11:03 325 MG Levothyroxine Sodium 112 mcg QAM PO 06/10/24 07:00 06/11/24 06:09 112 MCG Amlodipine Besylate 5 mg DAILY PO 06/10/24 10:00 06/11/24 10:00 5 MG Lisinopril 20 mg DAILY PO 06/10/24 10:00 06/11/24 10:51 20 MG Acetaminophen/ Hydrocodone Bitart 1 tab Q4HPRN PRN PO 06/10/24 11:00 Morphine Sulfate 1 mg Q4HP PRN IV 06/10/24 11:00 Baclofen 5 mg HS PO 06/10/24 22:00 06/10/24 21:24 5 MG Enoxaparin Sodium 40 mg DAILY SC 06/11/24 10:00 06/11/24 10:52 40 MG Famotidine 20 mg Q12HR PO 06/10/24 22:00 06/11/24 11:03 20 MG Examination General examination- awake alert, HEENT- PEERLA, no acute nasal discharge Cardiovascular- S1-S2 audible, rate and rhythm regular, no murmur Respiratory- CTAB, no wheeze or rhonchi Gastrointestinal-nontender, bowel sound+. Nondistended Musculoskeletal-no acute joint swelling or tenderness or redness# Lower extremity- no leg edema Neurological- cranial nerves intact, no acute dysarthria or dysphagia Psychiatry- denies depression or SI or HI Skin- no acute rash or purpura laboratory and microbiology Laboratory Tests 06/11/24 10:18 06/10/24 09:30 Test 06/11/24 10:18 Range/Units Serum Glucose 160 H 74-106 mg/dL Problem List/Assessment/Plan Problem List/Assessment/Plan Assessment- patient was admitted to the hospital due to intractable back pain for last 3 weeks which is worsening for last couple of days. Patient was found to have-A cute, subacute compression fracture of L2, L1 compression deformity, L4-5 spondylolisthesis, foraminal stenosis at L1-2, chronic compression fracture of L4, degenerative disc disease multilevel. Pain improving but physical therapy recommended for 1 more day for further therapy. As per spinal surgeon patient is not a good candidate for surgical intervention. Spinal surgeon recommended for pain management, follow up with the bioinformatics developer to assist with bone density issues , physical therapy, Acute, subacute compression fracture of L2, L1 compression deformity, L4-5 spondylolisthesis, foraminal stenosis at L1-2, chronic compression fracture of L4, degenerative disc disease multilevel Intractable back pain Rule out acute neurological deficit Compensation fracture of the lumbar 2 and lumbar 4 vertebra Degenerative change of the spine Hypertensive heart disease Hypothyroidism Hyperlipidemia Suspected UTI Nonspecific 4.7 cm lesion with heterogeneous signal in the lower pole of the left kidney. Cognitive impairment Plan -continue pain medication as prescribed Continue baclofen 5 mg q.h.s. Continue levothyroxine 112 mcg p.o. q.a.m. Continue amlodipine 5 mg p.o. daily Continue lisinopril 20 mg p.o. daily Ordered spinal surgery consult for further evaluation and care Patient was counseled to follow up with the outpatient for further evaluation and care Goals of care/advance care planning; FULL CODE; discussed with the patient >15 minutes PUD prophylaxis: Famotidine DVT prophylaxis: Lovenox Plan discussed with Dr. Keith , nursing staff, patient Total time spent on patient evaluation, chart review, assessment and plan, discussion discussion >31 minutes Plan discussed with: Patient Plan discussed with: Patient, Spouse (RN), Daughter, Other My Orders My Orders Orders - BRENNAN THAYER Procedure Category Date Status Time Enoxaparin Sodium PHA 06/11/24 In Process (Lovenox) 10:00 Famotidine Tablet PHA 06/10/24 In Process (Pepcid Tablet) 22:00 Cardiac DIET 06/11/24 Transmitted Diet-2gna,Lofat,Lochol Breakfast Date of Service: Jun 11, 2024 Billing Provider: WILIAN WEST MD Common Visit Codes: 21010-[id number] INP/OBS CARE(HIGH) BRENNAN THAYER Jun 11, 2024 13:38 WILIAN WEST MD Jun 13, 2024 00:19
[2024-06-11] MEDS: HYDROcodone-ACET 5/325MG TAB PO PRN (16:12)
[2024-06-12] VITALS (7 sets, daily range): BP systolic 127–151; BP diastolic 46–81; PULSE 67–98; RESP 17–20; TEMP 97.7–98.3; O2SAT 93–97
[2024-06-12 07:30] LABS: Chloride 104 mmol/L (98-107); Potassium 3.8 mmol/L (3.5-5.1); Sodium 140 mmol/L (136-145)
[2024-06-12 07:31] LABS: Anion Gap 9 (5-15); Calcium 9.5 mg/dL (8.7-10.4); Carbon Dioxide 27 mmol/L (20-31)
[2024-06-12 07:36] LABS: BUN/Creatinine Ratio 26.9 (10.0-20.0); Blood Urea Nitrogen 21 mg/dL (9-23); Glucose 96 mg/dL (74-106)
[2024-06-12] MEDS ORDERED: HYDR-4902 PO (10:47)
[2024-06-12] MEDS ORDERED: LIDO5DIS21 TOP (12:05)
[2024-06-12] MEDS ORDERED: BACL5TAB2 PO (12:05)
[2024-06-12] MEDS ORDERED: DICL1GEL59 EX (12:05)
--- NOTE | 2024-06-12 12:47 | DVHDSRES ---
Discharge Summary Date of Admission Resident Creating Document: ANG ANN RESIDENT Jun 09, 2024 at 22:02 Date of Discharge: Jun 12, 2024 Labs/Diagnostic Data: Laboratory Results Test 06/12/24 06:52 06/11/24 05:59 06/10/24 09:30 06/09/24 11:20 Sodium Level 140 mmol/L (136-145) Potassium Level 3.8 mmol/L (3.5-5.1) Chloride Level 104 mmol/L (98-107) Carbon Dioxide Level 27 mmol/L (20-31) Anion Gap 9 (5-15) Blood Urea Nitrogen 21 mg/dL (9-23) Creatinine 0.78 mg/dL (0.550-1.02) Glomerular Filtration Rate Calc 73 mL/min (>90) BUN/Creatinine Ratio 26.9 (10.0-20.0) Serum Glucose 96 mg/dL (74-106) Calcium Level 9.5 mg/dL (8.7-10.4) Magnesium Level 2.0 mg/dL (1.6-2.6) White Blood Count 7.8 10^3/uL (4.4-10.8) Red Blood Count 4.00 10^6/uL (4.0-5.20) Hemoglobin 12.2 g/dL (12.2-16.2) Hematocrit 37.6 % (36.0-46.0) Mean Corpuscular Volume 93.8 fL (80.0-100.0) Mean Corpuscular Hemoglobin 30.4 pg (28.0-32.0) Mean Corpuscular Hemoglobin Concent 32.4 g/dL (32.0-36.0) Red Cell Distribution Width 14.9 % (11.8-14.3) Platelet Count 270 10^3/uL (140-450) Mean Platelet Volume 8.6 fL (6.9-10.8) Neutrophils (%) (Auto) 73.4 % (37.0-80.0) Lymphocytes (%) (Auto) 14.1 % (10.0-50.0) Monocytes (%) (Auto) 7.4 % (0.0-12.0) Eosinophils (%) (Auto) 4.2 % (0.0-7.0) Basophils (%) (Auto) 0.9 % (0.0-2.0) Neutrophils # (Auto) 5.7 10 ^3/uL (1.6-8.6) Lymphocytes # (Auto) 1.1 10 ^3/uL (0.4-5.4) Monocytes # (Auto) 0.6 10 ^3/uL (0-1.3) Eosinophils # (Auto) 0.3 10 ^3/uL (0-0.8) Basophils # (Auto) 0.1 10 ^3/uL (0-0.2) Nucleated Red Blood Cells 0.1 % Total Bilirubin 0.6 mg/dL (0.2-1.0) Aspartate Amino Transferase (AST) 28 U/L (13-40) Alanine Aminotransferase (ALT) 27 U/L (7-40) Alkaline Phosphatase 137 U/L (46-116) Total Protein 5.9 g/dL (5.7-8.2) Albumin 4.0 g/dL (3.2-4.8) Thyroid Stimulating Hormone (TSH) 4.11 uIU/mL (0.55-4.78) Urine Color Yellow (Yellow) Urine Clarity Clear (Clear) Urine pH 6.5 (5.0-9.0) Urine Specific [place] 1.022 (1.001-1.035) Urine Protein Negative (Negative) Urine Ketones Negative (Negative) Urine Blood Negative /uL (Negative) Urine Nitrite Negative (Negative) Urine Bilirubin Negative (Negative) Urine Urobilinogen Normal mg/dL (Negative) Urine Leukocyte Esterase 2+ /uL (Negative) Urine RBC 1 /hpf (0 - 4) Urine Microscopic WBC 4 /HPF (0-5) Urine Squamous Epithelial Cells Few /hpf (<5) Urine Bacteria None seen /hpf (None Seen) Urine Mucus Few (None Seen) Urine Glucose Normal mg/dL (Normal) Other Laboratory Tests 06/12/24 06:52 06/10/24 09:30 Brief Hx & Hospital Course: Patient is 89 years old female with past medical history of hypertension, hyperlipidemia, hypothyroidism, history of back surgery due to fracture and spinal stenosis of the spine [facility] 3-4 years before came with a complaint of back pain. As per patient patient has been having back pain for last 3 weeks. Patient initially went to see PCP and outpatient x-ray was done history revealed arthritis but pain was not getting any worse with treatment. Due to worsening intractable pain, 02/03, aggravated with movement no relieving factor came to the ER for further evaluation and care. Initial lab workup revealed BUN 26, blood sugar 107, urinalysis leukocyte 2+, RBC 1, WBC 4, CT spine revealed-Age indeterminate moderate to severe L2 vertebral body compression fracture.No acute subluxation.Subtle cortical irregularity of the bilateral L1 transverse processes which may represent subtle age indeterminate nondisplaced fractures. Subtle cortical irregularity at the left L2 transverse process may represent an age indeterminate nondisplaced fracture. MRI of the spine revealed-There is severe acute to subacute compression fracture of the L2 vertebral body with approximately 80% height loss. There is intervertebral fluid signal at the L1-L2 disc space. There is also a mild acute to subacute compression deformity of the L1 inferior endplate with less than 25% height loss. Severe chronic compression deformity of the L4 vertebral body with approximately 80% height loss. Multilevel degenerative changes in the lumbar spine as described by levels above. Nonspecific 4.7 cm lesion with heterogeneous signal in the lower pole of the left kidney. Further evaluation with dedicated CT or MRI abdomen with contrast is recommended. During the hospitalization, lumbar spine CT without contrast was completed which showed Age indeterminate moderate to severe L2 vertebral body compression fracture.No acute subluxation. Subtle cortical irregularity of the bilateral L1 transverse processes which may represent subtle age indeterminate nondisplaced fractures. Subtle cortical irregularity at the left L2 transverse process may represent an age indeterminate nondisplaced fracture. Subsequently MRI completed showed There is severe acute to subacute compression fracture of the L2 vertebral body with approximately 80% height loss. There is intervertebral fluid signal at the L1-L2 disc space.there is also a mild acute to subacute compression deformity of the L1 inferior endplate with less than 25% height loss. Spinal surgery was consulted which recommended conservative management is the chosen path of treatment at this point in time considering the patient's poor bone health. patient is not a surgical candidate at this time due to bone density concerns, she has been managing her pain and discomfort for the past seven years with many of these chronic fractures present. Ensure adequate pain control, muscle relaxers, physical therapy, back brace, rheumatology consult. 06/12, patient is A/O x3, clinically stable, hemodynamically stable and therefore is being discharged with recommendations to follow up with plant manager as outpatient, pain management, home health for physical therapy. She has been discharged on baclofen, Voltaren gel, [place] for pain control. Patient and her agreed to the discharge planning. Discharge diagnosis: Acute, subacute compression fracture of L2, L1 compression deformity, L4-5 spondylolisthesis, foraminal stenosis at L1-2, chronic compression fracture of L4, degenerative disc disease multilevel Intractable back pain Rule out acute neurological deficit Compensation fracture of the lumbar 2 and lumbar 4 vertebra Degenerative change of the spine Hypertensive heart disease Hypothyroidism Hyperlipidemia Suspected UTI Nonspecific 4.7 cm lesion with heterogeneous signal in the lower pole of the left kidney. Cognitive impairment Condition at Discharge: Stable Final Diagnosis/Problems List Acute, subacute compression fracture of L2, L1 compression deformity, L4-5 spondylolisthesis, foraminal stenosis at L1-2, chronic compression fracture of L4, degenerative disc disease multilevel Intractable back pain Rule out acute neurological deficit Compensation fracture of the lumbar 2 and lumbar 4 vertebra Degenerative change of the spine Hypertensive heart disease Hypothyroidism Hyperlipidemia Suspected UTI Nonspecific 4.7 cm lesion with heterogeneous signal in the lower pole of the left kidney. Cognitive impairment Discharge Disposition: Home with Health Services Discharge Instruct/Medications Diet: Cardiac 2g Na,low cholest Activity: No Restrictions, As Tolerated Follow Up/Referral: Follow up with plant manager as outpatient Follow up with pain management Follow up with Primary care physician Follow up with discharge clinic appointment Medications: Tablet baclofen 5 mg nighttime for the next 5 days Lidocaine patch in the morning daily Discharge Statement: "Patient was advised to return to the ER or call 911 if any headaches, dizziness, shortness of breath, chest pain, abdominal pain, bleeding, fevers, or worsening of medical condition. Patient was counseled about treatment plan, medications, possible side effects, patientverbalized understanding. All questions were answered to the best of my ability. This discharge took greater then 30 minutes in planning, reviewing documentation, counseling the patient, and discussing with other team members." ASSESSMENT ASSESSMENT Assessment Acute, subacute compression fracture of L2, L1 compression deformity, L4-5 spondylolisthesis, foraminal stenosis at L1-2, chronic compression fracture of L4, degenerative disc disease multilevel Intractable back pain Rule out acute neurological deficit Compensation fracture of the lumbar 2 and lumbar 4 vertebra Degenerative change of the spine Hypertensive heart disease Hypothyroidism Hyperlipidemia Suspected UTI Nonspecific 4.7 cm lesion with heterogeneous signal in the lower pole of the left kidney. Cognitive impairment ANG ANN RESIDENT Jun 12, 2024 12:47
[2024-06-12] MEDS: POLYETHYLENE GLYCOL 17 GM PWDR PO ONE (13:15)
--- NOTE | 2024-06-12 15:01 | DVHPNRES ---
Progress Note Date Seen: Jun 12, 2024 Resident Creating Document: ANG ANN RESIDENT Medical Necessity Reason Pt with a Central, PICC or Fol: No Subjective Review of Systems Patient is 89 years old female with past medical history of hypertension, hyperlipidemia, hypothyroidism, history of back surgery due to fracture and spinal stenosis of the [facility] 3-4 years before came with a complaint of back pain. As per patient patient has been having back pain for last 3 weeks. Patient initially went to see PCP and outpatient x-ray was done history revealed arthritis but pain was not getting any worse with treatment. Due to worsening intractable pain, 02/03, aggravated with movement no relieving factor came to the ER for further evaluation and care. Initial lab workup revealed BUN 26, blood sugar 107, urinalysis leukocyte 2+, RBC 1, WBC 4, CT spine revealed-Age indeterminate moderate to severe L2 vertebral body compression fracture.No acute subluxation.Subtle cortical irregularity of the bilateral L1 transverse processes which may represent subtle age indeterminate nondisplaced fractures. Subtle cortical irregularity at the left L2 transverse process may represent an age indeterminate nondisplaced fracture. MRI of the spine revealed-There is severe acute to subacute compression fracture of the L2 vertebral body with approximately 80% height loss. There is intervertebral fluid signal at the L1-L2 disc space. There is also a mild acute to subacute compression deformity of the L1 inferior endplate with less than 25% height loss. Severe chronic compression deformity of the L4 vertebral body with approximately 80% height loss. Multilevel degenerative changes in the lumbar spine as described by levels above. Nonspecific 4.7 cm lesion with heterogeneous signal in the lower pole of the left kidney. Further evaluation with dedicated CT or MRI abdomen with contrast is recommended. PMH-hypertension, hyperlipidemia, hypothyroidism, PSH- history of back surgery due to fracture and spinal stenosis of the [facility] 3-4 years before Allergy- NKDA Personal History/ Social History- denies smoking/alcoholism/drug abuse, lives at home Patient was seen today at the bedside. Cardiovascular- deny acute chest pain or shortness of breath or cough or palpitation Respiratory denies cough or short of breath or wheezing Gastrointestinal- denies any rectal bleeding, nausea or vomiting Neurological- denies acute dysarthria, dysphagia, change in vision Psychiatry- denies depression or SI or HI Skin- denies acute rash or purpura 06/11 - Patient was seen today for clinical evaluation. Labs and chart reviewed. Patient reported pain is getting better. Patient was seen by spinal surgeon, recommendation reviewed and appreciated. Patient is also evaluated by Physical therapy and recommended for 1 more day of stay for further physical therapy. Plan is to discharge patient home tomorrow with pain medication and muscle relaxant, referral to supervisor general, referral to pain Medicine for further evaluation and care on discharge. As per spinal surgeon patient is not a good candidate for surgical intervention. Spinal surgeon recommended for pain management, follow up with the supervisor general to assist with bone density issues , physical therapy, 06/12 - patient seen and examined at the bedside. Reports back pain, physical therapy recommends home health, which is yet to be set up. Patient is being kept in the facility for physical therapy for the next 24 hours Objective vital signs Vital Sign Date Time Temp Pulse Resp B/P (MAP) Pulse Ox O2 Delivery O2 Flow Rate FiO2 06/12/24 13:00 98.1 82 17 127/49 (75) 97 98.1 06/12/24 08:00 Room Air* 0 21 Total Intake and Output 06/11/24 06/11/24 06/12/24 15:00 23:00 07:00 Intake Total 50 ml 554 ml 100 ml Output Total 50 ml Balance 50 ml 504 ml 100 ml medications Current Medications Medications Dose Ordered Sig/Yas Route Start Time Stop Time Status Last Admin Dose Admin Ceftriaxone Sodium 50 ml @ 100 mls/hr DAILY IV 06/10/24 10:00 06/12/24 09:29 100 MLS/HR Acetaminophen 325 mg Q8HP PRN PO 06/09/24 22:15 06/11/24 11:03 325 MG Levothyroxine Sodium 112 mcg QAM PO 06/10/24 07:00 06/12/24 06:05 112 MCG Amlodipine Besylate 5 mg DAILY PO 06/10/24 10:00 06/12/24 09:31 5 MG Lisinopril 20 mg DAILY PO 06/10/24 10:00 06/12/24 09:30 20 MG Acetaminophen/ Hydrocodone Bitart 1 tab Q4HPRN PRN PO 06/10/24 11:00 06/12/24 13:15 1 TAB Morphine Sulfate 1 mg Q4HP PRN IV 06/10/24 11:00 Baclofen 5 mg HS PO 06/10/24 22:00 06/11/24 21:14 5 MG Enoxaparin Sodium 40 mg DAILY SC 06/11/24 10:00 06/12/24 09:31 40 MG Famotidine 20 mg Q12HR PO 06/10/24 22:00 06/12/24 09:29 20 MG Examination General examination- awake alert, HEENT- PEERLA, no acute nasal discharge Cardiovascular- S1-S2 audible, rate and rhythm regular, no murmur Respiratory- CTAB, no wheeze or rhonchi Gastrointestinal-nontender, bowel sound+. Nondistended Musculoskeletal-no acute joint swelling or tenderness or redness# Lower extremity- no leg edema Neurological- cranial nerves intact, no acute dysarthria or dysphagia Psychiatry- denies depression or SI or HI Skin- no acute rash or purpura laboratory and microbiology Laboratory Tests 06/12/24 06:52 06/10/24 09:30 Test 06/12/24 06:52 Range/Units Serum Glucose 96 74-106 mg/dL Labs and/or images reviewed: Labs reviewed by me, Image(s) reviewed by me Problem List/Assessment/Plan Problem List/Assessment/Plan Assessment- patient was admitted to the hospital due to intractable back pain for last 3 weeks which is worsening for last couple of days. Patient was found to have-A cute, subacute compression fracture of L2, L1 compression deformity, L4-5 spondylolisthesis, foraminal stenosis at L1-2, chronic compression fracture of L4, degenerative disc disease multilevel. Pain improving but physical therapy recommended for 1 more day for further therapy. As per spinal surgeon patient is not a good candidate for surgical intervention. Spinal surgeon recommended for pain management, follow up with the supervisor general to assist with bone density issues , physical therapy, Acute, subacute compression fracture of L2, L1 compression deformity, L4-5 spondylolisthesis, foraminal stenosis at L1-2, chronic compression fracture of L4, degenerative disc disease multilevel Intractable back pain Rule out acute neurological deficit Compensation fracture of the lumbar 2 and lumbar 4 vertebra Degenerative change of the spine Hypertensive heart disease Hypothyroidism Hyperlipidemia Suspected UTI Nonspecific 4.7 cm lesion with heterogeneous signal in the lower pole of the left kidney. Cognitive impairment Plan 06/12 - patient seen and examined at the bedside. Reports back pain, physical therapy recommends home health, which is yet to be set up. Patient is being kept in the facility for physical therapy for the next 24 hours -continue pain medication as prescribed Continue baclofen 5 mg q.h.s. Continue levothyroxine 112 mcg p.o. q.a.m. Continue amlodipine 5 mg p.o. daily Continue lisinopril 20 mg p.o. daily Ordered spinal surgery consult for further evaluation and care Patient was counseled to follow up with the outpatient for further evaluation and care Goals of care/advance care planning; FULL CODE; discussed with the patient >15 minutes PUD prophylaxis: Famotidine DVT prophylaxis: Lovenox Plan discussed with Dr. Keith , nursing staff, patient Total time spent on patient evaluation, chart review, assessment and plan, discussion discussion >31 minutes Plan discussed with: Patient Plan discussed with: Patient, Spouse My Orders My Orders Orders - ANG ANN Procedure Category Date Status Time Schedule For Dc [place] 06/12/24 In Process Clinic F/U 12:38 * [place] [facility] CONS 06/12/24 Transmitted Consult 13:05 Date of Service: Jun 12, 2024 Billing Provider: WILIAN WEST MD Common Visit Codes: [id number] INP/OBS CARE(HIGH) ANG ANN Jun 12, 2024 15:01 WILIAN WEST MD Jun 13, 2024 00:23
[2024-06-13 01:00] VITALS: BP 133/71; PULSE 96; RESP 18; TEMP 98.3; O2SAT 95
[2024-06-13 05:00] VITALS: BP 138/54; PULSE 75; RESP 18; TEMP 97.1; O2SAT 95
[2024-06-13 09:13] VITALS: BP 133/67; PULSE 74; RESP 16; TEMP 97.6; O2SAT 93
--- NOTE | 2024-06-13 12:24 | DVHDSRES ---
Discharge Summary Date of Admission Resident Creating Document: ANG ANN RESIDENT Jun 09, 2024 at 22:02 Date of Discharge: Jun 12, 2024 Labs/Diagnostic Data: Laboratory Results Test 06/12/24 06:52 06/11/24 05:59 06/10/24 09:30 06/09/24 11:20 Sodium Level 140 mmol/L (136-145) Potassium Level 3.8 mmol/L (3.5-5.1) Chloride Level 104 mmol/L (98-107) Carbon Dioxide Level 27 mmol/L (20-31) Anion Gap 9 (5-15) Blood Urea Nitrogen 21 mg/dL (9-23) Creatinine 0.78 mg/dL (0.550-1.02) Glomerular Filtration Rate Calc 73 mL/min (>90) BUN/Creatinine Ratio 26.9 (10.0-20.0) Serum Glucose 96 mg/dL (74-106) Calcium Level 9.5 mg/dL (8.7-10.4) Magnesium Level 2.0 mg/dL (1.6-2.6) White Blood Count 7.8 10^3/uL (4.4-10.8) Red Blood Count 4.00 10^6/uL (4.0-5.20) Hemoglobin 12.2 g/dL (12.2-16.2) Hematocrit 37.6 % (36.0-46.0) Mean Corpuscular Volume 93.8 fL (80.0-100.0) Mean Corpuscular Hemoglobin 30.4 pg (28.0-32.0) Mean Corpuscular Hemoglobin Concent 32.4 g/dL (32.0-36.0) Red Cell Distribution Width 14.9 % (11.8-14.3) Platelet Count 270 10^3/uL (140-450) Mean Platelet Volume 8.6 fL (6.9-10.8) Neutrophils (%) (Auto) 73.4 % (37.0-80.0) Lymphocytes (%) (Auto) 14.1 % (10.0-50.0) Monocytes (%) (Auto) 7.4 % (0.0-12.0) Eosinophils (%) (Auto) 4.2 % (0.0-7.0) Basophils (%) (Auto) 0.9 % (0.0-2.0) Neutrophils # (Auto) 5.7 10 ^3/uL (1.6-8.6) Lymphocytes # (Auto) 1.1 10 ^3/uL (0.4-5.4) Monocytes # (Auto) 0.6 10 ^3/uL (0-1.3) Eosinophils # (Auto) 0.3 10 ^3/uL (0-0.8) Basophils # (Auto) 0.1 10 ^3/uL (0-0.2) Nucleated Red Blood Cells 0.1 % Total Bilirubin 0.6 mg/dL (0.2-1.0) Aspartate Amino Transferase (AST) 28 U/L (13-40) Alanine Aminotransferase (ALT) 27 U/L (7-40) Alkaline Phosphatase 137 U/L (46-116) Total Protein 5.9 g/dL (5.7-8.2) Albumin 4.0 g/dL (3.2-4.8) Thyroid Stimulating Hormone (TSH) 4.11 uIU/mL (0.55-4.78) Urine Color Yellow (Yellow) Urine Clarity Clear (Clear) Urine pH 6.5 (5.0-9.0) Urine Specific [place] 1.022 (1.001-1.035) Urine Protein Negative (Negative) Urine Ketones Negative (Negative) Urine Blood Negative /uL (Negative) Urine Nitrite Negative (Negative) Urine Bilirubin Negative (Negative) Urine Urobilinogen Normal mg/dL (Negative) Urine Leukocyte Esterase 2+ /uL (Negative) Urine RBC 1 /hpf (0 - 4) Urine Microscopic WBC 4 /HPF (0-5) Urine Squamous Epithelial Cells Few /hpf (<5) Urine Bacteria None seen /hpf (None Seen) Urine Mucus Few (None Seen) Urine Glucose Normal mg/dL (Normal) Other Laboratory Tests 06/12/24 06:52 06/10/24 09:30 Brief Hx & Hospital Course: Patient is 89 years old female with past medical history of hypertension, hyperlipidemia, hypothyroidism, history of back surgery due to fracture and spinal stenosis of the spine [facility] 3-4 years before came with a complaint of back pain. As per patient patient has been having back pain for last 3 weeks. Patient initially went to see PCP and outpatient x-ray was done history revealed arthritis but pain was not getting any worse with treatment. Due to worsening intractable pain, 02/03, aggravated with movement no relieving factor came to the ER for further evaluation and care. Initial lab workup revealed BUN 26, blood sugar 107, urinalysis leukocyte 2+, RBC 1, WBC 4, CT spine revealed-Age indeterminate moderate to severe L2 vertebral body compression fracture.No acute subluxation.Subtle cortical irregularity of the bilateral L1 transverse processes which may represent subtle age indeterminate nondisplaced fractures. Subtle cortical irregularity at the left L2 transverse process may represent an age indeterminate nondisplaced fracture. MRI of the spine revealed-There is severe acute to subacute compression fracture of the L2 vertebral body with approximately 80% height loss. There is intervertebral fluid signal at the L1-L2 disc space. There is also a mild acute to subacute compression deformity of the L1 inferior endplate with less than 25% height loss. Severe chronic compression deformity of the L4 vertebral body with approximately 80% height loss. Multilevel degenerative changes in the lumbar spine as described by levels above. Nonspecific 4.7 cm lesion with heterogeneous signal in the lower pole of the left kidney. Further evaluation with dedicated CT or MRI abdomen with contrast is recommended. PMH-hypertension, hyperlipidemia, hypothyroidism, PSH- history of back surgery due to fracture and spinal stenosis of the spine [facility] 3-4 years before Allergy- NKDA Personal History/ Social History- denies smoking/alcoholism/drug abuse, lives at home Patient was seen today at the bedside. Cardiovascular- deny acute chest pain or shortness of breath or cough or palpitation Respiratory denies cough or short of breath or wheezing Gastrointestinal- denies any rectal bleeding, nausea or vomiting Neurological- denies acute dysarthria, dysphagia, change in vision Psychiatry- denies depression or SI or HI Skin- denies acute rash or purpura Patient was seen today for clinical evaluation. Labs and chart reviewed. Patient reported pain is getting better. Patient was seen by spinal surgeon, recommendation reviewed and appreciated. Patient is also evaluated by Physical therapy and recommended for 1 more day of stay for further physical therapy. Plan is to discharge patient home tomorrow with pain medication and muscle relaxant, referral to travel registered nurse icu, referral to pain Medicine for further evaluation and care on discharge. As per spinal surgeon patient is not a good candidate for surgical intervention. Spinal surgeon recommended for pain management, follow up with the travel registered nurse icu to assist with bone density issues , physical therapy, Operations or Procedures [address] [address] Ph: [phone] DIAGNOSTIC IMAGING Diagnostic Imaging Report : [id number] Signed PATIENT: SARAH OCASIO ACCT: [id number] UNIT: [id number] : 1935 LOC: ER ROOM / BED: / AGE / SEX: 89 / F ADM STATUS: REG ER SERVICE 1115 ORDERING PHYSICIAN: SARAI CALIX MD PROCEDURE(s): LS2CT - LS SPINE WO CONTRAST REASON: pain ORDER NUMBER(s): [id number], ACCESSION NUMBER(s): [id number] EXAM: CT LS SPINE WO CONTRAST HISTORY: pain COMPARISON: None CTDIvol 24.41 mGy, DLP 753.7 mGy*cm. TECHNIQUE: Multiple axial CT images of the spine were obtained using bone algorithm. Axial and coronal reformatting was done. Bone and soft tissue windows were reviewed. FINDINGS: Diffuse osteopenia. No acute subluxation. Subtle cortical irregularity of the bilateral L1 transverse processes which may represent subtle age indeterminate nondisplaced fractures. Subtle cortical irregularity at the left L2 transverse process may represent an age indeterminate nondisplaced fracture. Post kyphoplasty changes at L4. Age indeterminate moderate to severe L2 vertebral body compression fracture. Multilevel degenerative changes of the spine. Vascular atherosclerotic calcifications of the aorta. Bilateral renal cysts and hyperdense cysts. Large volume colonic stool, partially imaged. IMPRESSION: Age indeterminate moderate to severe L2 vertebral body compression fracture. No acute subluxation. Subtle cortical irregularity of the bilateral L1 transverse processes which may represent subtle age indeterminate nondisplaced fractures. Subtle cortical irregularity at the left L2 transverse process may represent an age indeterminate nondisplaced fracture. ATED BY: KEN HARRY MD DICTATED DATE/TIME: 06/09/241209 SIGNED BY: KEN HARRY MD SIGNED DATE/TIME: 06/09/24 121 CC: [address] [address] Ph: [phone] DIAGNOSTIC IMAGING Diagnostic Imaging Report : [id number] Signed PATIENT: SARAH OCASIO ACCT: [id number] UNIT: [id number] : 1935 LOC: [facility] ROOM / BED: 0276 / A AGE / SEX: 89 / F ADM STATUS: ADM IN SERVICE 0011 ORDERING PHYSICIAN: KIMBERLY ZULUAGA RESIDENT PROCEDURE(s): MSL - LUMBAR SPINE WO CONTRAST REASON: l2 fracture ORDER NUMBER(s): [id number], ACCESSION NUMBER(s): [id number] MRI LUMBAR SPINE CLINICAL HISTORY: l2 fracture TECHNIQUE: Multi planar, multi sequence MR images of the lumbar spine without intravenous contrast. Comparison: None FINDINGS: There is severe acute to subacute compression fracture of the L2 vertebral body with approximately 80% height loss. There are underlying marrow edema signal changes. There is mild retropulsion of the posterior superior margins of the L2 vertebral body. There is intervertebral fluid signal in the L1-L2 disc space. There is also acute to sub acute compression deformity of the L1 inferior endplate with underlying marrow edema. There is less than 25% height loss. There is no significant posterior retropulsion. There is a severe chronic compression deformity of the L4 vertebral body with approximately 80% height loss. There is retropulsion of the posterior superior margins of the L4 vertebral body. Remaining lumbar vertebral bodies demonstrate normal height and marrow signal. The conus terminates at an appropriate level and demonstrates normal caliber and signal. There is mildly exaggerated lumbar lordosis.. There are multilevel degenerative changes with disc space narrowing and facet arthropathy. There is a 4.7 cm lesion in the lower pole of the left kidney demonstrating heterogeneous signal. There are additional scattered bilateral renal cysts some of which are complicated with intrinsic T1 signal. At L1-L2 there is posterior disc osteophyte complex and bilateral facet arthropathy. There is indentation of the ventral thecal sac without canal stenosis. There is [id number] bilateral neural foraminal stenosis. At L2-L3 there is disc bulge and bilateral facet arthropathy. There is mild indentation ventral thecal sac without canal stenosis. There is no significant foraminal stenosis. At L3-L4 there is posterior disc osteophyte complex and bilateral facet arthropathy there is mild central canal stenosis with effacement of the lateral recesses. There is moderate bilateral neural foraminal stenosis. At L4-L5 there is grade 1 retrolisthesis of L4 on L5. There is posterior disc osteophyte complex and bilateral facet arthropathy. There is no significant spinal canal stenosis. There is moderate to severe bilateral neural foraminal stenosis. At L5-S1 there is disc bulge and bilateral facet arthropathy. There is mild central canal stenosis. There is mild right and rpjg-[id number] left neural foraminal stenosis. IMPRESSION: 1. There is severe acute to subacute compression fracture of the L2 vertebral body with approximately 80% height loss. There is intervertebral fluid signal at the L1-L2 disc space. 2. There is also a mild acute to subacute compression deformity of the L1 inferior endplate with less than 25% height loss. 3. Severe chronic compression deformity of the L4 vertebral body with approximately 80% height loss. 4. Multilevel degenerative changes in the lumbar spine as described by levels above. 5. Nonspecific 4.7 cm lesion with heterogeneous signal in the lower pole of the left kidney. Further evaluation with dedicated CT or MRI abdomen with contrast is recommended. HS:Y ATED BY: JUVENCIO DIXON MD DICTATED DATE/TIME: 06/10/24921 SIGNED BY: JUVENCIO DIXON MD SIGNED DATE/TIME: 06/10/24921 CC: Condition at Discharge: Stable Final Diagnosis/Problems List Acute, subacute compression fracture of L2, L1 compression deformity, L4-5 spondylolisthesis, foraminal stenosis at L1-2, chronic compression fracture of L4, degenerative disc disease multilevel Intractable back pain Rule out acute neurological deficit Compensation fracture of the lumbar 2 and lumbar 4 vertebra Degenerative change of the spine Hypertensive heart disease Hypothyroidism Hyperlipidemia Suspected UTI Nonspecific 4.7 cm lesion with heterogeneous signal in the lower pole of the left kidney. Cognitive impairment Discharge Disposition: Home with Health Services Discharge Instruct/Medications Diet: Cardiac 2g Na,low cholest Activity: No Restrictions, As Tolerated Follow Up/Referral: Follow up with travel registered nurse icu as outpatient Follow up with pain management Follow up with Primary care physician Follow up with discharge clinic appointment Medications: Tablet baclofen 5 mg nighttime for the next 5 days Lidocaine patch in the morning daily Discharge Statement: "Patient was advised to return to the ER or call 911 if any headaches, dizziness, shortness of breath, chest pain, abdominal pain, bleeding, fevers, or worsening of medical condition. Patient was counseled about treatment plan, medications, possible side effects, patientverbalized understanding. All questions were answered to the best of my ability. This discharge took greater then 30 minutes in planning, reviewing documentation, counseling the patient, and discussing with other team members." ASSESSMENT ASSESSMENT Assessment Acute, subacute compression fracture of L2, L1 compression deformity, L4-5 spondylolisthesis, foraminal stenosis at L1-2, chronic compression fracture of L4, degenerative disc disease multilevel Intractable back pain Rule out acute neurological deficit Compensation fracture of the lumbar 2 and lumbar 4 vertebra Degenerative change of the spine Hypertensive heart disease Hypothyroidism Hyperlipidemia Suspected UTI Nonspecific 4.7 cm lesion with heterogeneous signal in the lower pole of the left kidney. Cognitive impairment BRENNAN THAYER RESIDENT Jun 13, 2024 12:24
[2024-06-13 13:00] VITALS: BP 140/72; PULSE 72; RESP 16; TEMP 98.2; O2SAT 93
--- NOTE | 2024-06-13 13:43 | DVHDSRES ---
Discharge Summary Date of Admission Resident Creating Document: ANG ANN RESIDENT Jun 09, 2024 at 22:02 Date of Discharge: Jun 12, 2024 Admitting Diagnosis Intractable back pain, rule out acute spinal stenosis Labs/Diagnostic Data: Laboratory Results Test 06/12/24 06:52 06/11/24 05:59 06/10/24 09:30 06/09/24 11:20 Sodium Level 140 mmol/L (136-145) Potassium Level 3.8 mmol/L (3.5-5.1) Chloride Level 104 mmol/L (98-107) Carbon Dioxide Level 27 mmol/L (20-31) Anion Gap 9 (5-15) Blood Urea Nitrogen 21 mg/dL (9-23) Creatinine 0.78 mg/dL (0.550-1.02) Glomerular Filtration Rate Calc 73 mL/min (>90) BUN/Creatinine Ratio 26.9 (10.0-20.0) Serum Glucose 96 mg/dL (74-106) Calcium Level 9.5 mg/dL (8.7-10.4) Magnesium Level 2.0 mg/dL (1.6-2.6) White Blood Count 7.8 10^3/uL (4.4-10.8) Red Blood Count 4.00 10^6/uL (4.0-5.20) Hemoglobin 12.2 g/dL (12.2-16.2) Hematocrit 37.6 % (36.0-46.0) Mean Corpuscular Volume 93.8 fL (80.0-100.0) Mean Corpuscular Hemoglobin 30.4 pg (28.0-32.0) Mean Corpuscular Hemoglobin Concent 32.4 g/dL (32.0-36.0) Red Cell Distribution Width 14.9 % (11.8-14.3) Platelet Count 270 10^3/uL (140-450) Mean Platelet Volume 8.6 fL (6.9-10.8) Neutrophils (%) (Auto) 73.4 % (37.0-80.0) Lymphocytes (%) (Auto) 14.1 % (10.0-50.0) Monocytes (%) (Auto) 7.4 % (0.0-12.0) Eosinophils (%) (Auto) 4.2 % (0.0-7.0) Basophils (%) (Auto) 0.9 % (0.0-2.0) Neutrophils # (Auto) 5.7 10 ^3/uL (1.6-8.6) Lymphocytes # (Auto) 1.1 10 ^3/uL (0.4-5.4) Monocytes # (Auto) 0.6 10 ^3/uL (0-1.3) Eosinophils # (Auto) 0.3 10 ^3/uL (0-0.8) Basophils # (Auto) 0.1 10 ^3/uL (0-0.2) Nucleated Red Blood Cells 0.1 % Total Bilirubin 0.6 mg/dL (0.2-1.0) Aspartate Amino Transferase (AST) 28 U/L (13-40) Alanine Aminotransferase (ALT) 27 U/L (7-40) Alkaline Phosphatase 137 U/L (46-116) Total Protein 5.9 g/dL (5.7-8.2) Albumin 4.0 g/dL (3.2-4.8) Thyroid Stimulating Hormone (TSH) 4.11 uIU/mL (0.55-4.78) Urine Color Yellow (Yellow) Urine Clarity Clear (Clear) Urine pH 6.5 (5.0-9.0) Urine Specific [place] 1.022 (1.001-1.035) Urine Protein Negative (Negative) Urine Ketones Negative (Negative) Urine Blood Negative /uL (Negative) Urine Nitrite Negative (Negative) Urine Bilirubin Negative (Negative) Urine Urobilinogen Normal mg/dL (Negative) Urine Leukocyte Esterase 2+ /uL (Negative) Urine RBC 1 /hpf (0 - 4) Urine Microscopic WBC 4 /HPF (0-5) Urine Squamous Epithelial Cells Few /hpf (<5) Urine Bacteria None seen /hpf (None Seen) Urine Mucus Few (None Seen) Urine Glucose Normal mg/dL (Normal) Other Laboratory Tests 06/12/24 06:52 06/10/24 09:30 Brief Hx & Hospital Course: HPI-Patient is 89 years old female with past medical history of hypertension, hyperlipidemia, hypothyroidism, history of back surgery due to fracture and spinal stenosis of the spine [facility] 3-4 years before came with a complaint of back pain. As per patient patient has been having back pain for last 3 weeks. Patient initially went to see PCP and outpatient x-ray was done history revealed arthritis but pain was not getting any worse with treatment. Due to worsening intractable pain, 10/10, aggravated with movement no relieving factor came to the ER for further evaluation and care. Initial lab workup revealed BUN 26, blood sugar 107, urinalysis leukocyte 2+, RBC 1, WBC 4, CT spine revealed-Age indeterminate moderate to severe L2 vertebral body compression fracture.No acute subluxation.Subtle cortical irregularity of the bilateral L1 transverse processes which may represent subtle age indeterminate nondisplaced fractures. Subtle cortical irregularity at the left L2 transverse process may represent an age indeterminate nondisplaced fracture. MRI of the spine revealed-There is severe acute to subacute compression fracture of the L2 vertebral body with approximately 80% height loss. There is intervertebral fluid signal at the L1-L2 disc space. There is also a mild acute to subacute compression deformity of the L1 inferior endplate with less than 25% height loss. Severe chronic compression deformity of the L4 vertebral body with approximately 80% height loss. Multilevel degenerative changes in the lumbar spine as described by levels above. Nonspecific 4.7 cm lesion with heterogeneous signal in the lower pole of the left kidney. Further evaluation with dedicated CT or MRI abdomen with contrast is recommended. Hospital course- During the hospitalization, lumbar spine CT without contrast was completed which showed Age indeterminate moderate to severe L2 vertebral body compression fracture.No acute subluxation. Subtle cortical irregularity of the bilateral L1 transverse processes which may represent subtle age indeterminate nondisplaced fractures. Subtle cortical irregularity at the left L2 transverse process may represent an age indeterminate nondisplaced fracture. Subsequently MRI completed showed There is severe acute to subacute compression fracture of the L2 vertebral body with approximately 80% height loss. There is intervertebral fluid signal at the L1-L2 disc space.there is also a mild acute to subacute compression deformity of the L1 inferior endplate with less than 25% height loss.Spinal surgery was consulted which recommended conservative management is the chosen path of treatment at this point in time considering the patient's poor bone health. patient is not a surgical candidate at this time due to bone density concerns, she has been managing her pain and discomfort for the past seven years with many of these chronic fractures present. Ensure adequate pain control, muscle relaxers, physical therapy, back brace, rheumatology consult. Patient's symptom gradually improved with continue with the management. Patient is being discharged home with home health for physical therapy. Patient was advised to follow up with the primary care physician in 1 week, with a blow molding machine operator in 2-3 weeks for further evaluation of osteoporosis. Or bone density. Patient was also advised to follow up with the spinal surgeon after follow up with the blow molding machine operator. And also with the pain medicine for further management of pain. Patient's meds were sent to the pharmacy electronically. Patient was hemodynamically stable on discharge. Diagnosis- Intractable back pain due to Acute, subacute compression fracture of L2, L1 compression deformity, L4-5 spondylolisthesis, foraminal stenosis at L1-2, chronic compression fracture of L4, degenerative disc disease multilevel Intractable back pain Rule out acute neurological deficit Compensation fracture of the lumbar 2 and lumbar 4 vertebra Degenerative change of the spine Hypertensive heart disease Hypothyroidism Hyperlipidemia Suspected UTI Nonspecific 4.7 cm lesion with heterogeneous signal in the lower pole of the left kidney. Cognitive impairment Discharge plan- Please continue pain medication as prescribed Baclofen 5 mg at night for 5 days Lidocaine patch as prescribed Please resume other home medications Patient is advised to follow up with the primary care physician in 1 week Patient was advised to follow up with the blow molding machine operator in 2-3 weeks Please follow up with the spinal surgeon in 3-4 weeks after follow up with the blow molding machine operator and with the recommendation Follow up with the pain medicine for further evaluation and care of pain Fall precaution Patient is being discharged home with home health for physical therapy Operations or Procedures [place] [address] Ph: [phone] DIAGNOSTIC IMAGING Diagnostic Imaging Report : [id number] Signed PATIENT: SARAH OCASIO ACCT: [id number] UNIT: [id number] : 1935 LOC: ER ROOM / BED: / AGE / SEX: 89 / F ADM STATUS: REG ER SERVICE 1604 ORDERING PHYSICIAN: SARAI CALIX MD PROCEDURE(s): LS2CT - LS SPINE WO CONTRAST REASON: pain ORDER NUMBER(s): [id number], ACCESSION NUMBER(s): [id number] EXAM: CT LS SPINE WO CONTRAST HISTORY: pain COMPARISON: None CTDIvol 24.41 mGy, DLP 753.7 mGy*cm. TECHNIQUE: Multiple axial CT images of the spine were obtained using bone algorithm. Axial and coronal reformatting was done. Bone and soft tissue windows were reviewed. FINDINGS: Diffuse osteopenia. No acute subluxation. Subtle cortical irregularity of the bilateral L1 transverse processes which may represent subtle age indeterminate nondisplaced fractures. Subtle cortical irregularity at the left L2 transverse process may represent an age indeterminate nondisplaced fracture. Post kyphoplasty changes at L4. Age indeterminate moderate to severe L2 vertebral body compression fracture. Multilevel degenerative changes of the spine. Vascular atherosclerotic calcifications of the aorta. Bilateral renal cysts and hyperdense cysts. Large volume colonic stool, partially imaged. IMPRESSION: Age indeterminate moderate to severe L2 vertebral body compression fracture. No acute subluxation. Subtle cortical irregularity of the bilateral L1 transverse processes which may represent subtle age indeterminate nondisplaced fractures. Subtle cortical irregularity at the left L2 transverse process may represent an age indeterminate nondisplaced fracture. ATED BY: KEN HARRY MD DICTATED DATE/TIME: 06/09/24 121 SIGNED BY: KEN HARRY MD SIGNED DATE/TIME: 06/09/24 1210 CC: [place] [address] Ph: [phone] DIAGNOSTIC IMAGING Diagnostic Imaging Report : [id number] Signed PATIENT: SARAH OCASIO ACCT: [id number] UNIT: [id number] : 1935 LOC: [facility] ROOM / BED: [facility] AGE / SEX: 89 / F ADM STATUS: ADM IN SERVICE ORDERING PHYSICIAN: KIMBERLY ZULUAGA RESIDENT PROCEDURE(s): MSL - LUMBAR SPINE WO CONTRAST REASON: l2 fracture ORDER NUMBER(s): [id number], ACCESSION NUMBER(s): [id number] MRI LUMBAR SPINE CLINICAL HISTORY: l2 fracture TECHNIQUE: Multi planar, multi sequence MR images of the lumbar spine without intravenous contrast. Comparison: None FINDINGS: There is severe acute to subacute compression fracture of the L2 vertebral body with approximately 80% height loss. There are underlying marrow edema signal changes. There is mild retropulsion of the posterior superior margins of the L2 vertebral body. There is intervertebral fluid signal in the L1-L2 disc space. There is also acute to sub acute compression deformity of the L1 inferior endplate with underlying marrow edema. There is less than 25% height loss. There is no significant posterior retropulsion. There is a severe chronic compression deformity of the L4 vertebral body with approximately 80% height loss. There is retropulsion of the posterior superior margins of the L4 vertebral body. Remaining lumbar vertebral bodies demonstrate normal height and marrow signal. The conus terminates at an appropriate level and demonstrates normal caliber and signal. There is mildly exaggerated lumbar lordosis.. There are multilevel degenerative changes with disc space narrowing and facet arthropathy. There is a 4.7 cm lesion in the lower pole of the left kidney demonstrating heterogeneous signal. There are additional scattered bilateral renal cysts some of which are complicated with intrinsic T1 signal. At L1-L2 there is posterior disc osteophyte complex and bilateral facet arthropathy. There is indentation of the ventral thecal sac without canal stenosis. There is [id number] bilateral neural foraminal stenosis. At L2-L3 there is disc bulge and bilateral facet arthropathy. There is mild indentation ventral thecal sac without canal stenosis. There is no significant foraminal stenosis. At L3-L4 there is posterior disc osteophyte complex and bilateral facet arthropathy there is mild central canal stenosis with effacement of the lateral recesses. There is moderate bilateral neural foraminal stenosis. At L4-L5 there is grade 1 retrolisthesis of L4 on L5. There is posterior disc osteophyte complex and bilateral facet arthropathy. There is no significant spinal canal stenosis. There is moderate to severe bilateral neural foraminal stenosis. At L5-S1 there is disc bulge and bilateral facet arthropathy. There is mild central canal stenosis. There is mild right and [id number] left neural foraminal stenosis. IMPRESSION: 1. There is severe acute to subacute compression fracture of the L2 vertebral body with approximately 80% height loss. There is intervertebral fluid signal at the L1-L2 disc space. 2. There is also a mild acute to subacute compression deformity of the L1 inferior endplate with less than 25% height loss. 3. Severe chronic compression deformity of the L4 vertebral body with approximately 80% height loss. 4. Multilevel degenerative changes in the lumbar spine as described by levels above. 5. Nonspecific 4.7 cm lesion with heterogeneous signal in the lower pole of the left kidney. Further evaluation with dedicated CT or MRI abdomen with contrast is recommended. HS:Y ATED BY: JUVENCIO DIXON MD DICTATED DATE/TIME: 06/10/24921 SIGNED BY: JUVENCIO DIXON MD SIGNED DATE/TIME: 06/10/24921 CC: Condition at Discharge: Stable Final Diagnosis/Problems List Acute, subacute compression fracture of L2, L1 compression deformity, L4-5 spondylolisthesis, foraminal stenosis at L1-2, chronic compression fracture of L4, degenerative disc disease multilevelIntractable back painRule out acute neurological deficitCompensation fracture of the lumbar 2 and lumbar 4 vertebraDegenerative change of the spineHypertensive heart diseaseHypothyroidismHyperlipidemiaSuspected UTI Nonspecific 4.7 cm lesion with heterogeneous signal in the lower pole of the left kidney.Cognitive impairment Discharge Disposition: Home with Health Services Discharge Instruct/Medications Diet: Cardiac 2g Na,low cholest Activity: No Restrictions, As Tolerated Follow Up/Referral: Patient is advised to follow up with the primary care physician in 1 week Patient was advised to follow up with the blow molding machine operator in 2-3 weeks Please follow up with the spinal surgeon in 3-4 weeks after follow up with the blow molding machine operator and with the recommendation Follow up with the pain medicine for further evaluation and care of pain Fall precaution Patient is being discharged home with home health for physical therapy Medications: Tablet baclofen 5 mg nighttime for the next 5 days Lidocaine patch in the morning daily [place] as prescribed -5 x 325 mg 3 times a day as needed by mouth Please resume other home medications Discharge Statement: "Patient was advised to return to the ER or call 911 if any headaches, dizziness, shortness of breath, chest pain, abdominal pain, bleeding, fevers, or worsening of medical condition. Patient was counseled about treatment plan, medications, possible side effects, patientverbalized understanding. All questions were answered to the best of my ability. This discharge took greater then 30 minutes in planning, reviewing documentation, counseling the patient, and discussing with other team members." ASSESSMENT ASSESSMENT Assessment Acute, subacute compression fracture of L2, L1 compression deformity, L4-5 spondylolisthesis, foraminal stenosis at L1-2, chronic compression fracture of L4, degenerative disc disease multilevelIntractable back painRule out acute neurological deficitCompensation fracture of the lumbar 2 and lumbar 4 vertebraDegenerative change of the spineHypertensive heart diseaseHypothyroidismHyperlipidemiaSuspected UTI Nonspecific 4.7 cm lesion with heterogeneous signal in the lower pole of the left kidney.Cognitive impairment BRENNAN THAYER RESIDENT Jun 13, 2024 13:43
[2024-06-13 14:14] VITALS: BP 140/72; PULSE 72; RESP 16; TEMP 98.2; O2SAT 93
== END 2024-06-13 15:40 | disposition home or self-care (01) | DRG 543 ==
LOC: ER 11:04 → EDBD 11:04 → OVERFLOW 22:02 → WEST WING 23:24
PROVIDERS: ADMIT Student in an Organized Health Care Education/Training Program; ATTEND Student in an Organized Health Care Education/Training Program
DX: M48.56XA Collapsed vertebra, not elsewhere classified, lumbar region, initial encounter for fracture (principal); N39.0 Urinary tract infection, site not specified; M48.061 Spinal stenosis, lumbar region without neurogenic claudication; E03.9 Hypothyroidism, unspecified; M51.369 Other intervertebral disc degeneration, lumbar region without mention of lumbar back pain or lower extremity pain; E78.5 Hyperlipidemia, unspecified; M43.16 Spondylolisthesis, lumbar region; M43.8X6 Other specified deforming dorsopathies, lumbar region; Z79.899 Other long term (current) drug therapy; Z90.710 Acquired absence of both cervix and uterus; X58.XXXA Exposure to other specified factors, initial encounter; Y93.89 Activity, other specified; Y92.89 Other specified places as the place of occurrence of the external cause; Y99.8 Other external cause status; I11.9 Hypertensive heart disease without heart failure
CPT/HCPCS: 36415; 72131; 72148; 80048; 80053; 81001; 83735; 84443; 85025; 96365; 96375; 97110; 97116; 97163; 97530; G0378; J2405

== ENCOUNTER 2024-07-12 08:45 | Emergency (ER) | payer OTHER ==
[~2024-07-12] VITALS: Ht 162.6 cm; Wt 64.9 kg
[~2024-07-12 08:45] MED LIST changes: +BACL5TAB2 PO; +DICL1GEL59 EX; +HYDR-4902 PO; +HYDR25TA4 PO; +LIDO5DIS21 TOP; -LISI40TA16 PO; +LOSA-535 PO
--- NOTE | 2024-07-12 09:22 | ED.PDOC ---
Back pain HPI HPI Comments 89 year old female PERRY presents to the ED with chief complaint of back pain. Patient reports that she has been experiencing lower back pain that has been making it difficult to walk on her own for the past few days. Patient relays that she is normally able to walk with a walker. Patient states she had similar pain in the past, however, today is 5 times worse than before. Patient denies any numbness, weakness, chest pain, SOB, dizziness, fall, or injury. Chief Complaint: Back Pain Time Seen by MD: 09:19 Primary Care Provider: ZELDA Bourne Notes: Nurses Notes, Medications, Allergies Allergies: Coded Allergies: NO KNOWN ALLERGIES (Unverified , 10/16/16) Home Meds Active Scripts Diclofenac Sodium (Topical) (Voltaren Arthritis Pain) 1 % Gel, 1 % EX HS for 30 Days, #1 GEL 0 Refills Prov:WILIAN WEST MD 06/12/24 Baclofen (Baclofen) 5 Mg Tab, 5 MG PO HS for 5 Days, #5 TAB Prov:WILIAN WEST MD 06/12/24 Lidocaine (LIDODERM 5% TOPICAL PATCH) 1 Patch Ph, 1 PATCH TOP DAILY, #30 PATCH 0 Refills Prov:WILIAN WEST MD 06/12/24 Hydrocodone-Acetaminophen (Hydrocodone Bitartrate/AC 5-325 mg) 1 Tab Tab, 1 TAB PO TIDP PRN for 7 Days, #21 TAB 0 Refills Prov:WILIAN WEST MD 06/12/24 Carbamide Peroxide (Debrox) 6.5 % Agustina, 6.5 % OT BID for 3 Days, #10 ML Prov:MALLIKA BUTLER MD 10/24/22 Reported Medications Hydrochlorothiazide (Hydrochlorothiazide) 25 Mg Tab, 25 MG PO DAILY, MG 06/10/24 Losartan Potassium (Losartan Potassium) 100 Mg Tab, 100 MG PO DAILY, MG 06/10/24 Levothyroxine Sodium (Levothyroxine Sodium) 112 Mcg Tab, 112 MCG PO DAILY for 30 Days, MCG 10/20/16 Amlodipine Besylate (Amlodipine Besylate) 5 Mg Tab, 5 MG PO DAILY for 30 Days, MG 10/20/16 Information Source: Patient Mode of Arrival: Ambulatory Timing: Days Duration: Since onset Location of Back pain: (B) Lower back Radiates to: Posterior: (L) Thigh Severity: Moderate Prehospital treatment: None Quality: Aching Onset: Spontaneous History of: Chronic Back Pain, UTI Modifying Factors: Nothing Past Medical History PAST MEDICAL HISTORY: High Lipids, HTN, Thyroid Surgical History: Appendectomy, Hysterectomy, Tonsillectomy AIR CONDITIONING INSTALLER History: No Pertinent AIR CONDITIONING INSTALLER History Family History Family History: Unknown Social History Smoker: Non-Smoker Alcohol: Denies ETOH Use Drugs: Denies Drug Use Lives In: Home Constitutional: denies: chills, diaphoresis, fatigue, fever, malaise, sweats, weakness, others EENTM: denies: blurred vision, double vision, ear bleeding, ear discharge, ear drainage, ear pain, ear ringing, eye pain, eye redness, hearing loss, mouth pain, mouth swelling, nasal discharge, nose bleeding, nose congestion, nose pain, photophobia, tearing, throat pain, throat swelling, voice changes, others Respiratory: denies: cough, hemoptysis, orthopnea, SOB at rest, shortness of breath, SOB with excertion, stridor, wheezing, others Cardiovascular: denies: chest pain, dizzy spells, diaphoresis, Dyspnea on exertion, edema, irregular heart beat, left arm pain, lightheadedness, palpitations, PND, syncope, others Gastrointestinal: denies: abdomen distended, abdominal pain, blood streaked bowels, constipated, diarrhea, dysphagia, difficulty swallowing, hematemesis, melena, nausea, poor appetite, poor fluid intake, rectal bleeding, rectal pain, vomiting, others Genitourinary: denies: abnormal vagina bleeding, burning, dyspareunia, dysuria, flank pain, frequency, hematuria, incontinence, pain, , vagina discharge, urgency, others Neurological: denies: dizziness, fainting, headache, left sided numbness, left sided weakness, numbness, paresthesia, pre-existing deficit, right sided numbness, right sided weakness, seizure, speech problems, tingling, tremors, weakness, others Musculoskeletal: reports: back pain; denies: gout, joint pain, joint swelling, muscle pain, muscle stiffness, neck pain, others Integumetry: denies: bruises, change in color, change in hair/nails, dryness, laceration, lesions, lumps, rash, wounds, others Allergic/Immunocompromised: denies: Difficulty Healing, Frequent Infections, Hives, Itching, others Hematologic/Lymphatic: denies: anemia, blood clots, easy bleeding, easy bruising, swollen glands, others Endocrine: denies: excessive hunger, excessive sweating, excessive thirst, excessive urination, flushing, intolerance to cold, intolerance to heat, unexplained weight gain, unexplained weight loss, others Psychiatric: denies: anxiety, bipolar disorder, depression, hopeless, panic disorder, schizophrenia, sleepless, suicidal, others All Other Systems: Reviewed and Negative Physical Exam General Appearance: Moderate Distress, Normal HEENT: Normal ENT Inspection, PERRL/EOMI Neck: Full Range of Motion, Non-Tender, Normal, Normal Inspection Respiratory: Chest Non-Tender, Lungs Clear, No Accessory Muscle Use, No Respiratory Distress, Normal Breath Sounds Cardiovascular: No Edema, No JVD, No Murmur, No Gallop, Normal Peripheral Pulses, Regular Rate/Rhythm Breast Exam: Deferred Gastrointestinal: No Organomegaly, Non Tender, No Pulsatile Mass, Normal Bowel Sounds, Soft Genitalia: Deferred Pelvic: Deferred Rectal: Deferred Extremities: No calf tenderness, Normal capillary refill, No pedal edema Musculoskeletal : Apperance: Normal Neurologic: Alert, circular gang saw operator II-XII nml as Tested, No Motor Deficits, Normal Affect, Normal Mood, No Sensory Deficits Cerebellar Function: NOT DONE Reflexes: NOT DONE Skin: Dry, Normal Color, Warm Peripheral Pulses: 3+ Radial (R), 3+ Radial (L) Lymphatic: No Adenopathy Was a procedure done? Was a procedure done?: No Back Pain Differential Dx Differential Diagnosis: Musculoskeletal Pain, Urinary Obstruction, Urolithiasis X-Ray, Labs, Meds, VS Vital Signs Date Time Temp Pulse Resp B/P (MAP) Pulse Ox O2 Delivery O2 Flow Rate FiO2 07/12/24 10:10 98.7 84 16 132/80 (97) 94 98.7 07/12/24 10:10 84 16 94 Room Air 07/12/24 09:00 87 07/12/24 08:50 98.0 98 16 151/84 (106) 100 98.0 Current Medications Medications (Trade) Dose Ordered Sig/Yas Route Start Time Stop Time Status Last Admin Acetaminophen/ Hydrocodone Bitart ([place] 10/325MG Tab) 1 tab ONCE ONCE PO 07/12/24 09:15 07/12/24 09:16 DC 07/12/24 09:57 Patient alert. Complaining of back pain. Vitals stable. Answering questions. Reviewed her previous visit. She had an MRI done at that time which showed severe lumbar pathology. Was given [place]. Spoke with medical imaging specialist. The present moment nothing to be done other than pain control. No recent trauma. Possible urinary tract infection. Referred to pain specialist. Possible nerve block. Possible steroid injection. Explained to the family. Was told to follow up with her primary care physician. systems support specialist family sad down have a game plan. Physiotherapy. Back brace. Pain-free when she does not move. Was told to come back if there is any problem. Time of 1ST Reevaluation: 10:19 Reevaluation 1ST: Unchanged Patient Education/Counseling: Diagnosis, Treatment Family Education/Counseling: No Family Present Additional Information Previous visit documents reviewed: 06/09/24 for UTI and back pain The following tests were ordered, and results were reviewed by me: UA, L-Spine XR Additional Information was gathered from interviewing the following independent historians: EMS I reviewed and agreed with the following test results read by other providers: L-Spine XR I discussed treatment and results with medical personnel and: Patient Departure 1 Departure Time of Disposition: 12:01 Impression: Primary Impression: Lumbar compression fracture Qualified Codes: S32.000A - Wedge compression fracture of unspecified lumbar vertebra, initial encounter for closed fracture Additional Impressions: Intractable back pain Chronic pain disorder Disposition: 01 HOME / SELF CARE / HOMELESS Condition: Good Discharged With: Relative (Sibling) Critical Care Note Critical Care Time?: No Stability Stability form required: No Heart Score Heart Score: Heart Score Response (Comments) Value History N/A 0 EKG N/A 0 Age N/A 0 Risk Factors N/A 0 Troponin N/A 0 Total 0 I personally scribed for EVELIN LAU MD ([email or web address]) on 07/12/24 at 09:22. Electronically submitted by Estrada Lee ([email or web address]). EVELIN LAU MD Jul 12, 2024 09:22
--- NOTE | 2024-07-12 09:25 | ECG ---
[facility] Test Date: 2024-07-12 Test Time: 09:00:16 Pat Name: SARAH OCASIO Department: er Room: Gender: F Claim Analyst: kim : 1935 Requested By: EMERGENCY EMERGENCY Order Number: [id number] Reading MD: Jeff Plascencia Measurements Intervals [place] Rate: 87 P: 65 TN: 166 QRS: 67 QRSD: 146 T: 0 QT: 410 QTc: 494 Interpretive Statements Sinus rhythm Multiple premature complexes, vent & supraven IVCD, consider atypical LBBB Electronically Signed On 07-13-2024 22:37:40 PDT by Jeff Plascencia Please click the below link to view image of tracing.
[2024-07-12] MEDS: HYDROcodone-ACET 10/325MG TAB PO ONE (09:57)
--- NOTE | 2024-07-12 11:26 | DVH ---
XY LUMBAR SPINE 3 VIEW, HISTORY: Degenerative disc disease COMPARISON: None TECHNICAL DATA: Frontal and lateral views were obtained of the lumbar spine . FINDINGS: There are 5 lumbar type vertebral bodies. Lumbar curvature is within normal limits. Moderate retrolis thesis of L4-5 is seen. Compression deformity of L4 with cement material is seen. Compression deformi ty of L2. Disk heights are narrow and degenerative. The facet joints appear normal. The sacroiliac j oints are symmetric. Paraspinal soft tissues are within normal limits. IMPRESSION: Moderate retrolisthesis of L4-5 is seen. Compression deformity of L4 with cement material is seen. Co mpression deformity of L2. These appear similar to CT.
[2024-07-12] MEDS ORDERED: cefTRIAXone SOD 1,000 MG VL IM ONE (12:15)
[2024-07-12] MEDS: methylPREDNISolone SOD SUCC 125 MG/2 ML VL IV ONE (17:20)
[2024-07-12] MEDS: PANTOPRAZOLE 40 MG/10 ML VIAL INJ IV ONE (17:20)
[2024-07-12] MEDS: ONDANSETRON HCL 4 MG/2 ML VIAL IM ONE (17:21)
[2024-07-12] MEDS: cefTRIAXone 1GM/50ML D5W 50 ML IV ONE (17:22)
[2024-07-12] MEDS: HYDROMORPHONE HCL 1 MG/ML INJ IM ONE (17:22)
[2024-07-12 17:36] VITALS: TEMP 98.3; O2SAT 97
[2024-07-12 17:43] VITALS: BP 125/61; PULSE 67; RESP 16
== END 2024-07-12 17:43 | disposition home or self-care (01) ==
LOC: EDBD 08:45 → ER 08:45
DX: M48.56XA Collapsed vertebra, not elsewhere classified, lumbar region, initial encounter for fracture (principal); I10 Essential (primary) hypertension; E78.5 Hyperlipidemia, unspecified; E03.9 Hypothyroidism, unspecified; Z90.49 Acquired absence of other specified parts of digestive tract; Z90.710 Acquired absence of both cervix and uterus; Z87.440 Personal history of urinary (tract) infections; Z79.899 Other long term (current) drug therapy; X58.XXXA Exposure to other specified factors, initial encounter; Y93.89 Activity, other specified; Y92.89 Other specified places as the place of occurrence of the external cause; Y99.8 Other external cause status
CPT/HCPCS: 72100; 93005; 96365; 96372; 96375; 99285; J0696; J1170; J2405; J2470; J2919

== ENCOUNTER 2024-07-24 16:05 | Inpatient (IN) | payer OTHER ==
[~2024-07-24] VITALS: Ht 162.6 cm; Wt 47.1 kg
[~2024-07-24 16:05] MED LIST changes: +DICL1GEL73 TOP; +DOCU-265 PO; +LACT10SO3 PO; +MUPI2OIN2 TOP; +NAP500T PO; +OMEP1CAP70 PO
--- NOTE | 2024-07-24 17:05 | ED.PDOC ---
History of Present Illness HPI Comments 89 y.o female with PMHx of Dementia, HTN, hyperlipidemia and thyroid disease, presents to the ED via EMS for an evaluation of hypotension associated with diarrhea. Per EMS, patient was found in the low 80's systolic on scene, was given IV fluids with 103 systolic pressure upon ED and repeated measurement at 110/78 at bedside. Per daughter on scene, patient has had diarrhea for a couple of days and mentally is declining, causing poor appetite. Patient is non verbal at bedside, unable to get any information from her. Chief Complaint: Low Blood Pressure Time Seen by MD: 16:57 Primary Care Provider: ZELDA Reviewed Notes: Nurses Notes, Heat Treat Supervisor Notes, Medications, Allergies Allergies: Coded Allergies: NO KNOWN ALLERGIES (Unverified , 10/16/16) Home Meds Active Scripts Diclofenac Sodium (Topical) (Voltaren Arthritis Pain) 1 % Gel, 1 % EX HS for 30 Days, #1 GEL 0 Refills Prov:WILIAN WEST MD 06/12/24 Baclofen (Baclofen) 5 Mg Tab, 5 MG PO HS for 5 Days, #5 TAB Prov:WILIAN WEST MD 06/12/24 Lidocaine (LIDODERM 5% TOPICAL PATCH) 1 Patch Ph, 1 PATCH TOP DAILY, #30 PATCH 0 Refills Prov:WILIAN WEST MD 06/12/24 Hydrocodone-Acetaminophen (Hydrocodone Bitartrate/AC 5-325 mg) 1 Tab Tab, 1 TAB PO TIDP PRN for 7 Days, #21 TAB 0 Refills Prov:WILIAN WEST MD 06/12/24 Carbamide Peroxide (Debrox) 6.5 % Agustina, 6.5 % OT BID for 3 Days, #10 ML Prov:MALLIKA BUTLER MD 10/24/22 Reported Medications Hydrochlorothiazide (Hydrochlorothiazide) 25 Mg Tab, 25 MG PO DAILY, MG 06/10/24 Losartan Potassium (Losartan Potassium) 100 Mg Tab, 100 MG PO DAILY, MG 06/10/24 Levothyroxine Sodium (Levothyroxine Sodium) 112 Mcg Tab, 112 MCG PO DAILY for 30 Days, MCG 10/20/16 Amlodipine Besylate (Amlodipine Besylate) 5 Mg Tab, 5 MG PO DAILY for 30 Days, MG 10/20/16 Information Source: Relative, Emergency Med Personnel Mode of Arrival: EMS Severity: Moderate Timing: Hours Duration: Since onset Past Medical History PAST MEDICAL HISTORY: High Lipids, HTN, Thyroid Surgical History: Appendectomy, Hysterectomy, Tonsillectomy SHOOK SPLICER History: No Pertinent SHOOK SPLICER History Family History Family History: Unknown Social History Smoker: Non-Smoker Alcohol: Denies ETOH Use Drugs: Denies Drug Use Lives In: Home Unable to Obtain due to: Dementia Physical Exam General Appearance: Mild Distress, Thin, Other (elderly, fraile ) HEENT: Other (dry mucous membranes ) Neck: Full Range of Motion, Non-Tender, Normal, Normal Inspection Respiratory: Chest Non-Tender, Lungs Clear, No Accessory Muscle Use, No Respira tory Distress, Normal Breath Sounds Cardiovascular: No Edema, No JVD, No Murmur, No Gallop, Normal Peripheral Pulses, Regular Rate/Rhythm Breast Exam: Deferred Gastrointestinal: No Organomegaly, Non Tender, No Pulsatile Mass, Normal Bowel Sounds, Soft Genitalia: Deferred Pelvic: Deferred Rectal: Deferred Extremities: No calf tenderness, Normal capillary refill, Normal inspection, Normal range of motion, Non-tender, No pedal edema Musculoskeletal : Apperance: Normal Neurologic: Alert, family services specialist II-XII nml as Tested, No Motor Deficits, Normal Affect, Normal Mood, No Sensory Deficits Cerebellar Function: Normal Reflexes: Normal Skin: Dry, Normal Color, Warm Lymphatic: No Adenopathy Was a procedure done? Was a procedure done?: No Differential Dx Considerations may include: Hypotension, Electrolyte imbalance, Dehydration, viral syndrome X-Ray, Labs, Meds, VS Vital Signs Date Time Temp Pulse Resp B/P (MAP) Pulse Ox O2 Delivery O2 Flow Rate FiO2 07/24/24 20:51 80/60 07/24/24 17:55 85 33 93/73 (80) 97 07/24/24 16:57 Nasal Cannula* 4 36 07/24/24 16:56 Nasal Cannula* 4 36 07/24/24 16:55 101 37 110/78 (89) 07/24/24 16:20 96 41 84/26 (45) 07/24/24 16:15 98.6 106 20 103/74 (84) 95 98.6 Lab Test 07/24/24 20:20 07/24/24 18:31 07/24/24 18:10 07/24/24 17:32 Range/Units Lactic Acid Level Pending 12.0 *H 0.4-2.0 mmol/L Prothrombin Time 12.1 H 9.3-11.8 sec Prothrombin Time INR 1.16 H 0.9-1.15 Activated Partial Thromboplast Time 27.1 24.5-34.5 SEC White Blood Count 11.9 H 4.4-10.8 10^3/uL Red Blood Count 2.00 L 4.0-5.20 10^6/uL Hemoglobin 6.2 *L 12.2-16.2 g/dL Hematocrit 20.3 L 36.0-46.0 % Mean Corpuscular Volume 101.8 H 80.0-100.0 fL Mean Corpuscular Hemoglobin 30.8 28.0-32.0 pg Mean Corpuscular Hemoglobin Concent 30.3 L 32.0-36.0 g/dL Red Cell Distribution Width 16.1 H 11.8-14.3 % Platelet Count 312 140-450 10^3/uL Mean Platelet Volume 9.6 6.9-10.8 fL Neutrophils (%) (Auto) 86.9 H 37.0-80.0 % Lymphocytes (%) (Auto) 9.3 L 10.0-50.0 % Monocytes (%) (Auto) 3.4 0.0-12.0 % Eosinophils (%) (Auto) 0.2 0.0-7.0 % Basophils (%) (Auto) 0.2 0.0-2.0 % Neutrophils # (Auto) 10.3 H 1.6-8.6 10 ^3/uL Lymphocytes # (Auto) 1.1 0.4-5.4 10 ^3/uL Monocytes # (Auto) 0.4 0-1.3 10 ^3/uL Eosinophils # (Auto) 0 0-0.8 10 ^3/uL Basophils # (Auto) 0 0-0.2 10 ^3/uL Nucleated Red Blood Cells 0.0 % Sodium Level 132 L 136-145 mmol/L Potassium Level 5.4 H 3.5-5.1 mmol/L Chloride Level 97 L 98-107 mmol/L Carbon Dioxide Level 14 L 20-31 mmol/L Anion Gap 21 H 5-15 Blood Urea Nitrogen 94 *H 9-23 mg/dL Creatinine 2.08 H 0.550-1.02 mg/dL Glomerular Filtration Rate Calc 22 >90 mL/min BUN/Creatinine Ratio 45.2 H 10.0-20.0 Serum Glucose 188 H 74-106 mg/dL Calcium Level 8.6 L 8.7-10.4 mg/dL Magnesium Level 2.7 H 1.6-2.6 mg/dL Total Bilirubin 0.4 0.2-1.0 mg/dL Aspartate Amino Transferase (AST) 78 H 13-40 U/L Alanine Aminotransferase (ALT) 17 7-40 U/L Alkaline Phosphatase 97 46-116 U/L Total Protein 4.8 L 5.7-8.2 g/dL Albumin 3.1 L 3.2-4.8 g/dL Current Medications Medications (Trade) Dose Ordered Sig/Yas Route Start Time Stop Time Status Last Admin Ondansetron HCl (Zofran) 4 mg ONCE ONCE IV 07/24/24 17:00 07/24/24 17:03 DC 07/24/24 17:23 Sodium Chloride 1,000 ml @ 1,000 mls/hr Q1H ONCE IVB 07/24/24 17:00 07/24/24 17:59 DC 07/24/24 17:18 Pantoprazole Sodium (Protonix) 40 mg ONCE ONCE IV 07/24/24 18:00 07/24/24 18:01 DC 07/24/24 18:50 Sodium Chloride 1,650 ml @ 1,650 mls/hr ONCE ONCE IV 07/24/24 20:00 07/24/24 20:59 DC 07/24/24 20:17 Norepinephrine Bitartrate 250 ml @ 3.75 mls/hr Q24H IV 07/24/24 20:00 07/24/24 20:51 Piperacillin Sod/ Tazobactam Sod 100 ml @ 100 mls/hr ONCE ONCE IV 07/24/24 20:00 07/24/24 20:59 DC 07/24/24 20:17 CHEST RADIOGRAPH Indication: SOB Technique: Single frontal view of the chest was obtained Comparison: XY CHEST PORTABLE on DOS: 10/23/22 FINDINGS: Lines and Tubes: None Lungs: Airspace disease worse in the right base scattered throughout the right chest. Pleura: No effusion. No pneumothorax. Cardiomediastinal contours: Unremarkable Bones: No acute osseous abnormality. IMPRESSION: 1. Airspace disease right lower lobe with involvement in the right upper lobe and perihilar region. Findings most likely represent pneumonia. HS:Y Time of 1ST Reevaluation: 17:01 Reevaluation 1ST: Unchanged Patient Education/Counseling: Other (patient has history of dementia ) Family Education/Counseling: Diagnosis, Treatment Departure 1 Departure Time of Disposition: 20:53 Impression: Primary Impression: Diarrhea Additional Impressions: Dehydration Acute renal injury Lower GI bleed Symptomatic anemia Disposition: 09 ADMITTED INPATIENT Admit to: ICU Condition: Critical Discharged With: Self, Relative Comments 89F with Severe Diarrhea, GI Bleed, and Hypotension Chief Complaint: Severe diarrhea with hypotension History of Present Illness: 89-year-old female presents to the ED with severe diarrhea for the past two days. EMS reported systolic blood pressure in the 80s prior to arrival. The patient received initial IV fluids from EMS with some improvement in blood pressure. Family reports black stools over the past couple of days. The patient has a significant medical history including dementia, hypertension, hyperlipidemia, and thyroid disease. Initial workup revealed severe anemia with acute kidney injury and metabolic derangements, suggesting significant volume depletion. Review of Systems: Constitutional: Hypotension Gastrointestinal: Severe diarrhea, melena Other systems: Limited review due to patient's condition Medications: Complete medication list not available in manager commission Allergies: No known allergies mentioned in manager commission Past Medical History: 1. Dementia 2. Hypertension 3. Hyperlipidemia 4. Thyroid disease Lab Results: Hemoglobin: 6 g/dL Hematocrit: 21% BUN: 94 Creatinine: 2.08 Lactic acid: 12 Potassium: 5.4 Sodium: 132 Imaging and Other Relevant Results: Chest X-ray: Findings suggestive of possible pneumonia Medical Decision Making: Summary Statement: 89-year-old female presenting with severe diarrhea, melena, hypotension, and severe anemia requiring emergent stabilization and blood product administration. Problem List: 1. Acute GI bleed with severe anemia 2. Hypotension requiring vasopressors 3. Acute kidney injury 4. Severe dehydration 5. Possible pneumonia 6. Electrolyte abnormalities Differential Diagnosis: Lower GI bleed (likely), Infectious diarrhea, Ischemic colitis, Inflammatory bowel disease, Medication-induced diarrhea ED Course: Patient received 30cc/kg IV fluid resuscitation, Zofran, and antibiotics. Required Levophed for persistent hypotension. Midline IV placed by PICC team. Two units of packed red blood cells ordered. Patient requires admission for further management. Assessment and Plan: 1. Acute Lower GI Bleed with Severe Anemia - Hemoglobin 6, Hematocrit 21 - Transfusion of 2 units PRBCs initiated - Will require GI consultation and likely endoscopy 2. Hypotension/Shock - Initial fluid resuscitation with 30cc/kg - Requiring Levophed for pressure support - Midline access obtained 3. Acute Kidney Injury - Likely pre-renal due to severe dehydration - Creatinine 2.08, BUN 94 - Continue fluid resuscitation 4. Possible Pneumonia - Identified on chest x-ray - Started on empiric antibiotics 5. Disposition: Admission to ICU for close monitoring and management of multiple organ systems Billing Information: ICD-10: K92.1 - Melena ICD-10: R19.7 - Diarrhea ICD-10: I95.9 - Hypotension, unspecified ICD-10: D64.9 - Anemia, unspecified ICD-10: N17.9 - Acute kidney failure, unspecified ICD-10: J18.9 - Pneumonia, unspecified organism Critical Care Note Critical Care Time?: Yes Critical care comment: Total critical care time: Approximately 36 minutes Due to a high probability of clinically significant, life threatening deterioration, the patient required my highest level of preparedness to intervene emergently and I personally spent this critical care time directly and personally managing the patient. This critical care time included obtaining a history; examining the patient; pulse oximetry; ordering and review of studies; arranging urgent treatment with development of a management plan; evaluation of patient's response to treatment; frequent reassessment; and, discussions with other providers. This critical care time was performed to assess and manage the high probability of imminent, life-threatening deterioration that could result in multi-organ failure. It was exclusive of separately billable procedures and treating other patients. Stability Stability form required: No I personally scribed for DONYA GARCIA MD ([email or web address]) on 07/24/24 at 17:05. Electronically submitted by Rosa Maria Francis ([employer]). I personally scribed for DONYA GARCIA MD ([email or web address]) on 07/24/24 at 20:26. Electronically submitted by Rosa Maria Francis ([facility]). DONYA GARCIA MD Jul 24, 2024 17:05
[2024-07-24] MEDS: SODIUM CHLORIDE 0.9% 1,000 ML IVB ONE (17:18)
[2024-07-24] MEDS: ONDANSETRON HCL 4 MG/2 ML VIAL IV ONE ×2 (17:23→18:00)
--- NOTE | 2024-07-24 17:31 | DVH ---
CHEST RADIOGRAPH Indication: SOB Technique: Single frontal view of the chest was obtained Comparison: XY CHEST PORTABLE on DOS: 10/23/22 FINDINGS: Lines and Tubes: None Lungs: Airspace disease worse in the right base scattered throughout the right chest. Pleura: No effusion. No pneumothorax. Cardiomediastinal contours: Unremarkable Bones: No acute osseous abnormality. IMPRESSION: 1. Airspace disease right lower lobe with involvement in the right upper lobe and perihilar region. F indings most likely represent pneumonia. HS:Y
[2024-07-24 17:49] LABS: Basophils # (auto) 0 10 ^3/uL (0-0.2); Basophils % (auto) 0.2 % (0.0-2.0); Eosinophils # (auto) 0 10 ^3/uL (0-0.8); Eosinophils % (auto) 0.2 % (0.0-7.0); Hematocrit 20.3 % (36.0-46.0); Lymphocytes # (auto) 1.1 10 ^3/uL (0.4-5.4); Lymphocytes % (auto) 9.3 % (10.0-50.0); Mean Corpuscular Hemoglobin 30.8 pg (28.0-32.0); Mean Corpuscular Hgb Conc. 30.3 g/dL (32.0-36.0); Mean Corpuscular Volume 101.8 fL (80.0-100.0); Monocytes # (auto) 0.4 10 ^3/uL (0-1.3); Monocytes % (auto) 3.4 % (0.0-12.0); Neutrophils # (auto) 10.3 10 ^3/uL (1.6-8.6); Neutrophils % (auto) 86.9 % (37.0-80.0); Platelet Count (auto) 312 10^3/uL (140-450); Red Cell Distribution Width 16.1 % (11.8-14.3); White Blood Cell 11.9 10^3/uL (4.4-10.8)
[2024-07-24 17:53] LABS: Hemoglobin 6.2 g/dL (12.2-16.2)
[2024-07-24] MEDS: MORPHINE SULFATE 4 MG/ML SYR/VIAL IV ONE (18:00)
[2024-07-24 18:08] LABS: Alanine Aminotransferase 17 U/L (7-40); Alkaline Phosphatase 97 U/L (46-116); Anion Gap 21 (5-15); BUN/Creatinine Ratio 45.2 (10.0-20.0); Bilirubin, Total 0.4 mg/dL (0.2-1.0)
[2024-07-24 18:21] LABS: Albumin 3.1 g/dL (3.2-4.8); Aspartate Aminotransferase 78 U/L (13-40); Blood Urea Nitrogen 94 mg/dL (9-23); Calcium 8.6 mg/dL (8.7-10.4); Carbon Dioxide 14 mmol/L (20-31); Chloride 97 mmol/L (98-107); Glucose 188 mg/dL (74-106); Magnesium 2.7 mg/dL (1.6-2.6); Potassium 5.4 mmol/L (3.5-5.1); Sodium 132 mmol/L (136-145); Total Protein 4.8 g/dL (5.7-8.2)
[2024-07-24] MEDS: PANTOPRAZOLE 40 MG/10 ML VIAL INJ IV ONE (18:50)
[2024-07-24 19:33] LABS: INR 1.16 (0.9-1.15); Partial Thromboplastin Time 27.1 SEC (24.5-34.5); Prothrombin Time 12.1 sec (9.3-11.8)
[2024-07-24 19:47] VITALS: PULSE 80; RESP 26; O2SAT 100
[2024-07-24] MEDS: IOHEXOL 300 MG/ML 100ML BOTTLE IJ ONE (20:13)
[2024-07-24] MEDS: PIPERACILLIN-TAZOB 3.375GM 100 ML IV ONE (20:17)
[2024-07-24] MEDS: SODIUM CHLORIDE 0.9% 1,650 ML IV ONE (20:17)
[2024-07-24] MEDS: NOREPINEPHRINE 8 MG/250ML KIT 250 ML IV SCH (20:51)
--- NOTE | 2024-07-24 21:26 | DVH ---
Indication: diarrhea, GI bleeding, pain Technique: CT axial images of the abdomen and pelvis are obtained without contrast. Coronal and sagit olena reformats were obtained. Radiation Dose Information: CTDI volume is 7.42 mGy. Dose-length product is 376.84 mGy*cm Comparison: None FINDINGS: There is limited interpretation of the abdomen and pelvis without administration of intravenous contr ast. IMPRESSION: 1.
[2024-07-24 21:42] LABS: Urine Bacteria None Seen /hpf (None Seen)
[2024-07-24 22:11] LABS: Urine Blood Negative /uL (Negative); Urine Clarity Clear (Clear); Urine Color Yellow (Yellow); Urine Hyaline Cast FEW /lpf (0 - 2); Urine Protein, UAD Negative (Negative); Urine Squamous Epithelial Cell None Seen /hpf (<5); Urine Urobilinogen Normal (Negative); Urine WBC 3 /HPF (0-5)
[2024-07-24 22:17] VITALS: BP 92/40; PULSE 85; RESP 24; TEMP 98.3
[2024-07-24 22:24] VITALS: BP 98/30; PULSE 86; RESP 25; TEMP 98.1
[2024-07-24 22:39] VITALS: BP 107/51; PULSE 87; RESP 19; TEMP 97.8
[2024-07-25] VITALS (40 sets, daily range): BP systolic 85–134; BP diastolic 34–93; PULSE 62–103; RESP 14–25; TEMP 97.8–99.1; O2SAT 95–100
[2024-07-25] MEDS: CEFEPIME 1GM/ 50ML 50 ML IV ONE (01:30)
[2024-07-25] MEDS ORDERED: VANCOMYCIN PER PHARMACY 0 MG IV SCH (01:30)
[2024-07-25] MEDS ORDERED: MORPHINE SULFATE INJ 2 MG/ml SYRG IV PRN (01:30)
[2024-07-25] MEDS: PANTOPRAZOLE 40 MG/10 ML VIAL INJ IV ONE (01:30)
[2024-07-25] MEDS ORDERED: NITROGLYCERIN 0.4 MG SL TAB SL PRN (01:30)
[2024-07-25] MEDS: LACTATED RINGER'S 1,000 ML IV ONE (01:45)
[2024-07-25] MEDS: DEXTROSE (50%) 50ML SYRG IV ONE (02:15)
[2024-07-25] MEDS: FUROSEMIDE 20 MG/2 ML VIAL IV ONE (02:15)
[2024-07-25] MEDS: SODIUM BICARB 8.4% 50Meq/50ml SYR INJ IV ONE (02:15)
[2024-07-25] MEDS: SODIUM ZIRCONIUM CYCL 10 GM PAK PO ONE (02:15)
[2024-07-25] MEDS: CALCIUM GLUC 1,000mg/50ml-NS 50 ML IV ONE (02:15)
[2024-07-25 02:22] LABS: Base Excess -6.9 mmol/L (-2.0-3.0)
[2024-07-25 03:12] LABS: Potassium 4.6 mmol/L (3.5-5.1); Sodium 137 mmol/L (136-145)
[2024-07-25 03:13] LABS: Anion Gap 12 (5-15)
[2024-07-25 03:18] LABS: BUN/Creatinine Ratio 48.7 (10.0-20.0)
--- NOTE | 2024-07-25 03:22 | DVHHPRES ---
History of Present Illness Resident Creating Document: SHASHI GR RESIDENT History of Present Illness Ms. Monahan, a 89-year-old female with a history of baseline dementia, hypertension, hyperlipidemia, hypothyroidism, and previous surgeries (appendectomy, tonsillectomy, and back surgery for spinal stenosis) presents with ALOC and hypotension, diarrhea and dark stool. She denies fever, chills, nausea, vomiting, or recent trauma. Imaging shows chronic L2 vertebral body compression fractures and degenerative changes known for over five years. She was admitted with Severe sepsis, CAP, aspiration pneumonia, proctitis and blood loss anemia needing transfusion. She lives at home as a non-smoker, family denies alcohol or drug use came to ED via EMS. Extremely poor historian, history taken from family, prior charting. S/p 20g/8cm midline inserted via R Brachial vein using Ultrasound as all iv access failure. Patient is critical in SAL status. Past Medical History baseline dementia, hypertension, hyperlipidemia, hypothyroidism, chronic back pain Past Surgical History appendectomy, tonsillectomy, and back surgery for spinal stenosis Family History: Other (Noncontributory) Smoke: No Drugs: None Lives: with Family Domestic Violence: Neg Review of Systems Constitutional: Yes: Malaise Eyes: No: Pain, Vision change, Conjunctivae inflammation, Eyelid inflammation, Other, Redness ENT: No: Ear pain, Ear discharge, Nose pain, Nose discharge, Nose congestion, Mouth pain, Mouth swelling, Throat pain, Throat swelling, Other Respiratory: Cough, Shortness of breath, Sputum Cardiovascular: Lt Headedness Gastrointestinal: Diarrhea, Melena Genitourinary: Dysuria Musculoskeletal: back pain Skin: No: Rash, Lesions, Jaundice, Bruising, Other Neurological: Confusion Allergies: Coded Allergies: NO KNOWN ALLERGIES (Unverified , 10/16/16) Medications Current Medications Medications Dose Ordered Sig/Yas Route Start Time Stop Time Status Last Admin Dose Admin Norepinephrine Bitartrate 250 ml @ 3.75 mls/hr Q24H IV 07/24/24 20:00 07/24/24 20:51 3.75 MLS/HR Nitroglycerin 0.4 mg Q5MINP PRN SL 07/25/24 01:30 Morphine Sulfate 2 mg Q30M PRN IV 07/25/24 01:30 Vancomycin HCl 0 ml @ 0 mls/hr UD IV 07/25/24 01:30 UNV Cefepime HCl 50 ml @ 12.5 mls/hr DAILY IV 07/26/24 10:00 Pantoprazole Sodium 40 mg BID IV 07/25/24 10:00 Zirconium Oxide 10 gm TID PO 07/25/24 14:00 07/27/24 06:01 Exam Vital Signs Vital Signs Date Time Temp Pulse Resp B/P (MAP) Pulse Ox O2 Delivery O2 Flow Rate FiO2 07/25/24 02:00 80 24 130/43 (72) 95 07/25/24 00:20 98.2 98.2 07/24/24 19:47 Nasal Cannula* 5 40 General Appearance: Alert, moderate distress HEENT: Atraumatic, PERRLA, Other (dry ) Respiratory: Other (basal rales, RLL aegophony+crackles ) Cardiovascular: Normal S1, Normal S2, No murmurs, Gallops, Rubs, Other Abdominal: Normal bowel sounds, Soft, No tenderness, No hepatospenomegaly, No masses Extremities: No cyanosis, No edema, Normal pulses, No tenderness/swelling Skin: No rashes, No breakdown, No significant lesion Neuro: Other (unable to check ) Psych/Mental Status: Other (unable to check, altered. ) Labs/Xrays Labs Test 07/25/24 02:45 07/25/24 02:15 07/24/24 21:42 07/24/24 18:31 Range/Units Blood Gas Specimen Type Arterial Blood Gas Sample Site Right radial Blood Gas Patient Temperature 37.0 Arterial Blood Date Drawn [id number] Arterial Blood pH 7.437 7.350-7.450 Arterial Blood Partial Pressure CO2 25.0 L 32.0-45.0 mmHg Arterial Blood Partial Pressure O2 86.9 83.0-108.0 mmHg Arterial Blood HCO3 16.5 L 21.0-28.0 mmol/L Arterial Blood Oxygen Saturation 96.0 94.0-98.0 % Arterial Blood Base Excess -6.9 L -2.0-3.0 mmol/L Arterial Blood Oxyhemoglobin 94.4 94.0-98.0 % Arterial Blood Carboxyhemoglobin 1.0 0.5-1.5 % Arterial Blood Methemoglobin 0.7 0.0-1.5 % Raman Test Modified Blood Gas Total Hemoglobin 7.00 L 12.0-16.0 g/dL Blood Gas Liter Flow 2.00 Blood Gas Modality Nasal cannula FiO2 % 28.0 Urine Color Yellow Yellow Urine Clarity Clear Clear Urine pH 5.0 5.0-9.0 Urine Specific [place] 1.020 1.001-1.035 Urine Protein Negative Negative Urine Ketones Negative Negative Urine Blood Negative Negative /uL Urine Nitrite Negative Negative Urine Bilirubin Negative Negative Urine Urobilinogen Normal Negative mg/dL Urine Leukocyte Esterase 1+ Negative /uL Urine RBC 2 0 - 4 /hpf Urine Microscopic WBC 3 0-5 /HPF Urine Squamous Epithelial Cells None seen <5 /hpf Urine Bacteria None seen None Seen /hpf Urine Hyaline Casts Few 0 - 2 /lpf Urine Glucose Normal Normal mg/dL Prothrombin Time 12.1 H 9.3-11.8 sec Prothrombin Time INR 1.16 H 0.9-1.15 Activated Partial Thromboplast Time 27.1 24.5-34.5 SEC Test 07/24/24 17:32 Range/Units Eosinophils (%) (Auto) 0.2 0.0-7.0 % Eosinophils # (Auto) 0 0-0.8 10 ^3/uL Basophils # (Auto) 0 0-0.2 10 ^3/uL Nucleated Red Blood Cells 0.0 % Magnesium Level 2.7 H 1.6-2.6 mg/dL Total Bilirubin 0.4 0.2-1.0 mg/dL Aspartate Amino Transferase (AST) 78 H 13-40 U/L Alanine Aminotransferase (ALT) 17 7-40 U/L Alkaline Phosphatase 97 46-116 U/L Total Protein 4.8 L 5.7-8.2 g/dL Albumin 3.1 L 3.2-4.8 g/dL Assessment/Plan Assessment/Plan #Acute blood loss anemia: Baseline Hb 12, presented with 6.2 hb s/p 2 prbc transfusion, transfusion threshold 8 (given CAD, extensive atherosclerosis) check FOBT, if positive GI consult. IV ppi to continue. Black stool for past 2 days, patient on Pepto-Bismol #Aspiration Pneumonia: Community acquired Pneumonia gram +ve / gram -ve in differential, RLL likely aspirational, NPO, aspiration precaution. Noted on CXR COVID, influenza, sputum culture pending. #bilateral pleural effusions: Could be parapneumonic, relatively mild #UTI: with LE+ve, Ucx bcx , previous cx Ecoli no MDR bacteria noted. IV abx continue. #Severe sepsis: likely due to above, sepsis dose iv bolus, severe lactic acidosis, status post sepsis dose fluid bolus, continue on IV 125 cc/hour of LR, broad-spectrum antibiotic, close monitoring at ICU/ SAL level. Patient on Levophed titratable to keep the map over 65. #severe lactic acidosis: With anion gap of 21, check ABG. Provide bicarbonate supplementation is pH less than 7. #acute hypoxic respiratory failure: Likely due to community-acquired pneumonia, blood loss anemia, contributory. on 5 L nasal cannula oxygen, at home patient is not on oxygen. #metabolic versus toxic encephalopathy: Multifactorial dementia and infections. #Macrocytic anemia: MCV 101: TSH, b12 and folate to check. start on b12 and folate supplements. RDW elevated #Dehydration: on clinical evaluation, + hyaline casts, continue IV hydration. #H/o HTN: Amlodipine 5 mg PO daily + Lisinopril 40 mg PO daily on hold. previously HCTZ. #H/o Hypothyroidism: Levothyroxine 112 mcg PO daily, continue IV levothyroxine . not reliable GI absorption #Chronic back pain: due to Acute, subacute compression fracture of L2, L1 compression deformity Chronic L2 vertebral compression fracture (known for >5 years) prn pain medication, avoid NSAID. Baclofen 5 mg , Lidocaine patch as prescribed, home health for physical therapy was arragned at discharge from previous hospitalization. Fall precaution. L4-5 spondylolisthesis, foraminal stenosis at L1-2, chronic compression fracture of L4 as needed pain mx. avoid opioids and NSAID. #Known osteoarthritis, degenerative disc disease: multilevel Intractable back pain, acute neurological deficit unlikely. PT evaluation when acute phase of illness is over. #Hypertensive heart disease/ HFmrEF: mildly diminished EF is about 45%. check bnp and trops. #Cognitive impairment with history of dementia, lives at home with support of family + daughter. 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 #ARIEL due to VMN: rule out ATNMadina prerenal, BUN: CR>20, BUN 80s,trop Avoid nephrotoxins, IV fluid to continue, close input and output to check, avoid hypo and hypertension, nephrology consulted, ultrasound renal and urine electrolytes pending. #Chronic constipation: home regimen with lactulose, colace, age and opioid related #GERD: on omeprazole, iv ppid bid for now. #Renal mass: Nonspecific 4.7 cm lesion with heterogeneous signal in the lower pole of the left kidney. #electrolyte disturbances: Mild hypokalemia 132, hypermagnesemia 2.7, calcium 8.6 likely secondary due to severe sepsis, diarrhea, and fluid imbalance continue IV fluids, recheck electrolytes #hyperkalemia 5.4: EKG check and hyperkalemia management. recheck K closely. #proctocolitis: Rectal wall thickening and presacral edema. History of 3 days of diarrhea prior to hospitalization #Colonic diverticular disease: No active diverticulitis noted, avoid constipa tion #Right hepatic lobe hypodense lesion: measuring 1.9 cm, concerning for metastases/neoplasm. Recommend multiphasic MRI abdomen. #Possible cirrhotic morphology liver: Check BNP, liver ultrasound, trend CMP, LFT #Extensive atherosclerotic disease: Target hemoglobin 8, when possible start on statin. #H/o Appendectomy #H/o Tonsillectomy #H/o Hyperlipidemia: statin on hold. DVT prophylaxis: SCD only GI bleed suspected. GI prophylaxis: IV PPI b.i.d. Code status: Full code, discussed with patient and family. Total time spent 39 minutes. Hospital admission, further medical management discussed at bedside, a greeable to the plan. Critical care time spent 43 minutes, chart reviewing, evaluating the patient and formulating complicated medical management and plan. Advanced age with multiorgan failure and severe sepsis deemed the patient is extremely high-risk for decompensation. Please continue acute ICU/SAL level of care with aggressive fluid management and antibiotics. Overall poor prognosis. [email or web address] updated over phone , continue goals of care discussion. Discussed with . Plan discussed with: Patient, Daughter, Other (RN) My Orders Orders - SAHSHI GR RESIDENT Procedure Category Date Status Time Admit ADMIT 07/25/24 Transmitted 01:19 Code Status CODE 07/25/24 Transmitted 01:19 Vital Signs [facility] 07/25/24 In Process 01:19 Review Orders With [place] 07/25/24 In Process Adm. 01:19 Npo (Nothing By DIET 07/25/24 Transmitted Mouth) Diet Breakfast Notify Md Of Changes [place] 07/25/24 In Process From Base 01:19 Advance Directive [facility] 07/25/24 In Process 01:19 Patient Condition ORDERS 07/25/24 Transmitted 01:19 Allergies [place] 07/25/24 In Process 01:19 Nitroglycerin [facility] 07/25/24 In Process Sublingual (Ntrostat 01:30 Morphine Sulfate [facility] 07/25/24 In Process Injection 01:30 Oxygen By Nasal RT 07/25/24 Transmitted Cannula 01:19 Stat Ekg For Chest [place] 07/25/24 In Process Pain 01:19 Notify Of Changes [place] 07/25/24 In Process From Base 01:19 Respiratory Care Instructor For [facility] 07/25/24 In Process 24 Hours 01:19 Emergency Dysrhythmia [facility] 07/25/24 In Process Protocol 01:19 Rhythm Strips Once [place] 07/25/24 In Process Every Shift 01:19 Vancomycin Per [facility] 07/25/24 Pending Pharmacy 01:30 Cefepime 1gm/ 50ml [facility] 07/25/24 In Process (Maxipime 1gm/50ml) 01:30 Cefepime 1gm/ 50ml [facility] 07/26/24 In Process (Maxipime 1gm/50ml) 10:00 Pantoprazole [facility] 07/25/24 In Process (Protonix) 10:00 Urine Bacterial ADAN 07/25/24 Logged Culture 01:25 Respiratory Culture ADAN 07/25/24 Logged W/ Gs 01:25 Covid19 Antigen Steffi LAB 07/25/24 Logged Rapid Influenza A&B LAB 07/25/24 Logged 01:25 Lactated Ringer's PHA 07/25/24 In Process 01:45 Thyroid Stimulating LAB 07/25/24 In Process Hormone 01:41 Folate (Folic Acid) LAB 07/25/24 In Process 01:41 Vitamin B12 LAB 07/25/24 In Process 01:41 Basic Metabolic Panel LAB 07/25/24 In Process 01:43 Complete Blood Count LAB 07/25/24 In Process 01:43 Complete Blood Count LAB 07/26/24 Verified 04:00 Comprehensive LAB 07/26/24 Verified Metabolic Panel 04:00 Lactic Acid W/ Reflex LAB 07/25/24 In Process Order 01:51 Abg W/ Co-Ox RT 07/25/24 Logged 01:51 Kidney US 07/25/24 Logged 02:06 Electrocardigram EKG 07/25/24 Logged 02:06 Potassium LAB 07/25/24 Logged 06:06 Sodium Zirconium PHA 07/25/24 In Process Cyclosilicate 14:00 * [facility] CONS 07/25/24 Transmitted 02:11 *[facility] CONS 07/25/24 Transmitted -[place] 02:15 Urine Sodium LAB 07/25/24 Logged 02:16 Urine LAB 07/25/24 Logged Protein/Creatinine Urine Protein LAB 07/25/24 Logged 02:16 Urine Creatinine LAB 07/25/24 Logged 02:16 Urine Potassium LAB 07/25/24 Logged 02:16 Osmolality Urine LAB 07/25/24 Logged 02:16 B-Type Natriuretic LAB 07/25/24 Logged Peptide 02:17 Troponin-I Hs LAB 07/25/24 Logged 02:17 Troponin-I Hs LAB 07/25/24 Logged 03:17 Troponin-I Hs LAB 07/25/24 Logged 05:17 Transfer Orders XFER 07/25/24 Transmitted 02:24 Date of Service: Jul 25, 2024 Billing Provider: SAMREEN LEMOS MD Common Visit Codes: [id number] INP/OBS CARE (HIGH) Secondary Visit Codes: [id number] CARE PLAN 30 MINUTES SHASHI GR RESIDENT Jul 25, 2024 03:22 SAMREEN LEMOS MD Jul 25, 2024 11:24
[2024-07-25 03:27] LABS: Calcium 7.8 mg/dL (8.7-10.4); Carbon Dioxide 16 mmol/L (20-31); Chloride 109 mmol/L (98-107); Glucose 181 mg/dL (74-106)
[2024-07-25 03:30] LABS: Basophils # (auto) 0 10 ^3/uL (0-0.2); Basophils % (auto) 0.1 % (0.0-2.0); Eosinophils # (auto) 0 10 ^3/uL (0-0.8); Monocytes # (auto) 0.6 10 ^3/uL (0-1.3)
[2024-07-25 03:31] LABS: Hematocrit 21.3 % (36.0-46.0); Lymphocytes # (auto) 1.1 10 ^3/uL (0.4-5.4); Lymphocytes % (auto) 7.3 % (10.0-50.0); Mean Corpuscular Hemoglobin 29.9 pg (28.0-32.0); Mean Corpuscular Hgb Conc. 31.9 g/dL (32.0-36.0); Mean Corpuscular Volume 93.8 fL (80.0-100.0); Neutrophils % (auto) 88.6 % (37.0-80.0); Platelet Count (auto) 235 10^3/uL (140-450); Red Blood Cells 2.28 10^6/uL (4.0-5.20); Red Cell Distribution Width 14.8 % (11.8-14.3); White Blood Cell 14.6 10^3/uL (4.4-10.8)
[2024-07-25 03:43] LABS: Blood Urea Nitrogen 91 mg/dL (9-23); Lactic Acid w/Reflex 3.5 mmol/L (0.4-2.0)
[2024-07-25 03:49] LABS: Hemoglobin 6.8 g/dL (12.2-16.2)
[2024-07-25] MEDS: InsuLIN REG 1unit/0.01ml Soln (100units/ml) IV ONE (06:47)
--- NOTE | 2024-07-25 07:24 | DVH ---
EXAM: US Retroperitoneal Limited, Renal CLINICAL INDICATION: ARIEL, TECHNIQUE: Real-time limited ultrasound of the retroperitoneum with image documentation. COMPARISON: None FINDINGS: RIGHT KIDNEY: 1.9 cm right renal cysts. No stones. No hydronephrosis. Right kidney measures 8.9 cm. LEFT KIDNEY: 4.2 cm hetero echogenic lesion in the left kidney. This can be further evaluated with multiphasic CT or MRI of the abdomen using renal mass protocol. No stones. No hydronephrosis. Left kidney measures 9.0 cm. BLADDER: Urinary bladder is decompressed by a urinary Crump catheter. OTHER FINDINGS: . IMPRESSION: 4.2 cm hetero echogenic lesion in the left kidney. This can be further evaluated with multiphasic CT or MRI of the abdomen using renal mass protocol.
[2024-07-25 07:57] LABS: COVID19 ANTIGEN SOFIA FIA NEGATIVE (NEGATIVE); Rapid Influenza A Negative (Negative); Rapid Influenza B Negative (Negative)
[2024-07-25] MEDS: PANTOPRAZOLE 40 MG/10 ML VIAL INJ IV SCH (10:38)
[2024-07-25 10:47] LABS: % Iron Saturation 15.4 % (15-50)
[2024-07-25 10:51] LABS: Folate (Folic Acid) 10.22 ng/mL (>5.38)
[2024-07-25] MEDS: VANCOMYCIN 1GM/200ML PM 250 ML IV ONE (10:57)
[2024-07-25 11:05] LABS: Free T4 (Free Thyroxine) 1.16 ng/dL (0.89-1.76); T3 Total 0.42 ng/mL (0.60-1.81)
[2024-07-25 11:25] LABS: Ferritin 2924.8 ng/mL (10-291)
--- NOTE | 2024-07-25 12:08 | ECG ---
[facility] Test Date: 2024-07-25 Test Time: 12:07:33 Pat Name: SARAH OCASIO Department: ED Room: 0281 Gender: F Collision Technician: kim : 1935 Requested By: SHASHI GR Order Number: [id number] Reading MD: Jeff Plascencia Measurements Intervals [place] Rate: 72 P: 97 SD: 150 QRS: -12 QRSD: 145 T: 132 QT: 423 QTc: 463 Interpretive Statements Sinus rhythm Left bundle branch block Electronically Signed On 07-27-2024 22:07:37 PDT by Jeff Plascencia Please click the below link to view image of tracing.
--- NOTE | 2024-07-25 13:01 | DVHINCON2 ---
GI Consult Consult Note GI consult note Date of Consultation: 07/25/2024 Chief Complaint: Rule out GI bleed and proctocolitis Referring Physician: Dr. Torres H&P: 89-year-old female with history of dementia, hypertension, hyperlipidemia, hypothyroid presents with ALOC Patient is altered. History from chart and RN Patient presented with complains of loose stool which was dark in color. Possible melena Patient also was complaining of dysuria and back pain. Patient has cough and shortness of breath Past Medical History: baseline dementia, hypertension, hyperlipidemia, hypothyroidism, chronic back pain Past Surgical History: appendectomy, tonsillectomy, and back surgery for spinal stenosis Social History: NO smoking, drinking ETOH and use of illegal drugs. Family History: Noncontributory Review of Systems: As above Physical exam: General: Patient is resting. No apparent distress Chest: lung gómez with crackles Heart: RRR Abdomen: non-distended, soft, +BS Labs: Labs Test 07/25/24 10:45 07/25/24 08:43 07/25/24 06:45 07/25/24 05:24 Range/Units Ammonia 17 11-32 umol/L Troponin I High Sensitivity 231 *H </=34 ng/L Potassium Level 4.3 3.5-5.1 mmol/L Iron Level 28 L 50-170 ug/dL Total Iron Binding Capacity 182 L 250-425 ug/dL Percent Iron Saturation 15.4 15-50 % Ferritin 2924.8 H 10-291 ng/mL Free Thyroxine (T4) Calculated 1.16 0.89-1.76 ng/dL Total Triiodothyronine (TT3) 0.42 L 0.60-1.81 ng/mL POC Glucose 126 H 70-106 mg/dl Influenza Type A Antigen Negative Negative Influenza Type B Antigen Negative Negative SARS-CoV-2 Antigen (Rapid) Negative NEGATIVE Test 07/25/24 02:45 07/25/24 02:15 07/24/24 21:42 07/24/24 18:31 Range/Units White Blood Count 14.6 H 4.4-10.8 10^3/uL Red Blood Count 2.28 L 4.0-5.20 10^6/uL Hemoglobin 6.8 *L 12.2-16.2 g/dL Hematocrit 21.3 L 36.0-46.0 % Mean Corpuscular Volume 93.8 # 80.0-100.0 fL Mean Corpuscular Hemoglobin 29.9 28.0-32.0 pg Mean Corpuscular Hemoglobin Concent 31.9 L 32.0-36.0 g/dL Red Cell Distribution Width 14.8 H 11.8-14.3 % Platelet Count 235 140-450 10^3/uL Mean Platelet Volume 9.5 6.9-10.8 fL Neutrophils (%) (Auto) 88.6 H 37.0-80.0 % Lymphocytes (%) (Auto) 7.3 L 10.0-50.0 % Monocytes (%) (Auto) 4.0 0.0-12.0 % Eosinophils (%) (Auto) 0.0 0.0-7.0 % Basophils (%) (Auto) 0.1 0.0-2.0 % Neutrophils # (Auto) 13.0 H 1.6-8.6 10 ^3/uL Lymphocytes # (Auto) 1.1 0.4-5.4 10 ^3/uL Monocytes # (Auto) 0.6 0-1.3 10 ^3/uL Eosinophils # (Auto) 0 0-0.8 10 ^3/uL Basophils # (Auto) 0 0-0.2 10 ^3/uL Nucleated Red Blood Cells 0.0 % Reticulocyte Count (auto) 2.72 H 0.5-1.5 % Sodium Level 137 # 136-145 mmol/L Chloride Level 109 #H 98-107 mmol/L Carbon Dioxide Level 16 L 20-31 mmol/L Anion Gap 12 5-15 Blood Urea Nitrogen 91 *H 9-23 mg/dL Creatinine 1.87 H 0.550-1.02 mg/dL Glomerular Filtration Rate Calc 25 >90 mL/min BUN/Creatinine Ratio 48.7 H 10.0-20.0 Serum Glucose 181 H 74-106 mg/dL Lactic Acid Level 3.5 *H 0.4-2.0 mmol/L Calcium Level 7.8 L 8.7-10.4 mg/dL B-Type Natriuretic Peptide 75.08 0-100 pg/mL Vitamin B12 Level 621 211-911 pg/mL Folic Acid 10.22 >5.38 ng/mL Thyroid Stimulating Hormone (TSH) 14.55 H 0.55-4.78 uIU/mL Blood Gas Specimen Type Arterial Blood Gas Sample Site Right radial Blood Gas Patient Temperature 37.0 Arterial Blood Date Drawn [id number] Arterial Blood pH 7.437 7.350-7.450 Arterial Blood Partial Pressure CO2 25.0 L 32.0-45.0 mmHg Arterial Blood Partial Pressure O2 86.9 83.0-108.0 mmHg Arterial Blood HCO3 16.5 L 21.0-28.0 mmol/L Arterial Blood Oxygen Saturation 96.0 94.0-98.0 % Arterial Blood Base Excess -6.9 L -2.0-3.0 mmol/L Arterial Blood Oxyhemoglobin 94.4 94.0-98.0 % Arterial Blood Carboxyhemoglobin 1.0 0.5-1.5 % Arterial Blood Methemoglobin 0.7 0.0-1.5 % Raman Test Modified Blood Gas Total Hemoglobin 7.00 L 12.0-16.0 g/dL Blood Gas Liter Flow 2.00 Blood Gas Modality Nasal cannula FiO2 % 28.0 Urine Color Yellow Yellow Urine Clarity Clear Clear Urine pH 5.0 5.0-9.0 Urine Specific [place] 1.020 1.001-1.035 Urine Protein Negative Negative Urine Ketones Negative Negative Urine Blood Negative Negative /uL Urine Nitrite Negative Negative Urine Bilirubin Negative Negative Urine Urobilinogen Normal Negative mg/dL Urine Leukocyte Esterase 1+ Negative /uL Urine RBC 2 0 - 4 /hpf Urine Microscopic WBC 3 0-5 /HPF Urine Squamous Epithelial Cells None seen <5 /hpf Urine Bacteria None seen None Seen /hpf Urine Hyaline Casts Few 0 - 2 /lpf Urine Glucose Normal Normal mg/dL Prothrombin Time 12.1 H 9.3-11.8 sec Prothrombin Time INR 1.16 H 0.9-1.15 Activated Partial Thromboplast Time 27.1 24.5-34.5 SEC Test 07/24/24 17:32 Range/Units Magnesium Level 2.7 H 1.6-2.6 mg/dL Total Bilirubin 0.4 0.2-1.0 mg/dL Aspartate Amino Transferase (AST) 78 H 13-40 U/L Alanine Aminotransferase (ALT) 17 7-40 U/L Alkaline Phosphatase 97 46-116 U/L Total Protein 4.8 L 5.7-8.2 g/dL Albumin 3.1 L 3.2-4.8 g/dL Imaging: CT abdomen pelvis IMPRESSION: 1. Rectal wall thickening and presacral edema which can be secondary to proctocolitis. 2. Colonic diverticular disease. 3. Indeterminate left renal lower pole lesion, concerning for mass/ neoplasm as seen and described on previous MRI. Recommend MRI of the abdomen with and without contrast to evaluate for renal neoplasm. 4. Right hepatic lobe hypodense lesion measuring 1.9 cm, concerning for metastases/neoplasm. Recommend multiphasic MRI abdomen. 5. Bilateral pulmonary airspace consolidation and tiny bilateral pleural effusions. 6. Extensive atherosclerotic disease. 7. Multiple lumbar compression deformities as described 8. Possible cirrhotic morphology liver. Assessment: Severe anemia GI bleed Severe sepsis Lactic acidosis History of GERD Renal mass Proctocolitis Right hepatic lobe lesion Possible cirrhotic morphology Plan: Discussed with Dr. Dueñas Monitor labs transfuse if hemoglobin less than seven Protonix CEA, AFP,CA125 Stool for occult blood. Stool for WBC, bacterial culture and C diff Continue antibiotic We will continue to monitor the patient Thank you for this consult Date of Service: Jul 25, 2024 Billing Provider: MAURA GARZA Common Visit Codes: CONSULT ONLY Consultation Codes: [id number] CONSULT <60MIN MAURA GARZA Jul 25, 2024 13:01
--- NOTE | 2024-07-25 13:11 | DVH ---
INDICATION: sob TECHNIQUE: Single frontal view of the chest was obtained COMPARISON: XY CHEST PORTABLE on DOS: 07/24/24, XY CHEST PORTABLE on DOS: 10/23/22, XY CHEST PORTABLE o n DOS: 07/24/24 FINDINGS: Lines and Tubes: None Lungs: Airspace disease worse in the right base scattered throughout the right chest. Pleura: No effusion. No pneumothorax. Cardiomediastinal contours: Unremarkable Bones: No acute osseous abnormality. IMPRESSION: 1. Airspace disease right lower lobe with involvement in the right upper lobe and perihilar region. F indings most likely represent pneumonia.
[2024-07-25] MEDS: SODIUM CHLORIDE 0.9% 500 ML IV ONE (13:18)
[2024-07-25 13:33] LABS: Hematocrit 27.1 % (36.0-46.0); Hemoglobin 8.7 g/dL (12.2-16.2)
[2024-07-25 13:34] LABS: Potassium 4.1 mmol/L (3.5-5.1); Sodium 139 mmol/L (136-145)
[2024-07-25 13:35] LABS: Anion Gap 10 (5-15)
[2024-07-25 13:36] LABS: Carbon Dioxide 17 mmol/L (20-31); Chloride 112 mmol/L (98-107)
[2024-07-25 13:40] LABS: BUN/Creatinine Ratio 48.1 (10.0-20.0)
[2024-07-25 13:45] LABS: Blood Urea Nitrogen 74 mg/dL (9-23); Glucose 166 mg/dL (74-106)
[2024-07-25] MEDS ORDERED: SODIUM ZIRCONIUM CYCL 10 GM PAK PO SCH (14:00)
--- NOTE | 2024-07-25 18:14 | DVHPNRES ---
Progress Note Date Seen: Jul 25, 2024 Resident Creating Document: JANEY BANKS RESIDENT Medical Necessity Reason Pt with a Central, PICC or Fol: No The following are medically ne: PICC Line, Crump Catheter Subjective Review of Systems This is a 89-year-old female who presents with ALOC and hypotension, diarrhea and dark stool. Past Medical History: baseline dementia, hypertension, hyperlipidemia, hypothyroidism, chronic back pain Past Surgical History: appendectomy, tonsillectomy, and back surgery for spinal stenosis SH: Family History: Other (Noncontributory). Smoke: No. Drugs: None. Lives: with Family She denies fever, chills, nausea, vomiting, or recent trauma. Imaging shows chronic L2 vertebral body compression fractures and degenerative changes known for over five years. She was admitted with Severe sepsis, CAP, aspiration pneumonia, proctitis and blood loss anemia needing transfusion. She lives at home as a non-smoker, family denies alcohol or drug use came to ED via EMS. Extremely poor historian, history taken from family, prior charting. S/p 20g/8cm midline inserted via R Brachial vein using Ultrasound as all iv access failure. Patient is critical in SAL status. On my initial assessment, patient was seen and examined at bedside. She currently states feeling better than on admission, A&Ox1, denies any significant chest pain, abdominal pain, dysuria, nausea, vomiting, diarrhea, constipation, dizziness, lightheadedness. She is currently NPO. I had a lengthy discussion with family members today, they stated the patient has been taking diclofenac 2 times per day for the last month, and in the last 3-4 days he has been taking naproxen as well. This is for her back pain. They state that besides that the patient has a living complaining of shortness of Breath, and that she has been weak, and having low appetite. Objective vital signs Vital Sign Date Time Temp Pulse Resp B/P (MAP) Pulse Ox O2 Delivery O2 Flow Rate FiO2 07/25/24 18:03 98.9 69 22 103/55 98.9 07/25/24 15:30 99 07/25/24 08:39 Nasal Cannula* 5 40 Total Intake and Output 07/24/24 07/24/24 07/25/24 15:00 23:00 07:00 Intake Total 600 ml 1800 ml Output Total 900 ml Balance 600 ml 900 ml medications Current Medications Medications Dose Ordered Sig/Yas Route Start Time Stop Time Status Last Admin Dose Admin Norepinephrine Bitartrate 250 ml @ 3.75 mls/hr Q24H IV 07/24/24 20:00 07/25/24 16:57 22.5 MLS/HR Nitroglycerin 0.4 mg Q5MINP PRN SL 07/25/24 01:30 Morphine Sulfate 2 mg Q30M PRN IV 07/25/24 01:30 Vancomycin HCl 0 ml @ 0 mls/hr UD IV 07/25/24 01:30 Cefepime HCl 50 ml @ 12.5 mls/hr DAILY IV 07/26/24 10:00 Pantoprazole Sodium 40 mg BID IV 07/25/24 10:00 07/25/24 10:38 40 MG Morphine Sulfate 1 mg Q6HP PRN IV 07/25/24 12:00 Examination Physical examination as below: General: Awake, alert, comfortable appearing, in no acute distress. A&O x1 HEENT: Head is normocephalic and atraumatic. Pupils are equal, round, and reactive to light. Extraocular muscles are intact Neck: Supple with no cervical lymphadenopathy. Heart: Regular rate without murmur, rub, or gallop. Lungs: Mild to moderate bilateral crackles, no wheezing Abdomen: No external sign of injury. Bowel sounds are present. Abdomen is soft, nontender. No rebound, no guarding, no rigidity. There are no palpable masses. There is no flank pain on exam. Extremities: Faint peripheral pulses. There is no clubbing, no cyanosis, and no edema. Skin: No rash. Neurologic: Cranial nerves II-XII intact without motor, sensory deficit. laboratory and microbiology Laboratory Tests 07/25/24 13:04 07/25/24 02:45 Test 07/25/24 13:04 Range/Units Serum Glucose 166 H 74-106 mg/dL Microbiology Date/Time Source Procedure Growth Status 07/24/24 17:32 Blood Blood Culture - Preliminary NO GROWTH AFTER 24 HOURS OF INCUBATION. Resulted Labs and/or images reviewed: Labs reviewed by me, Image(s) reviewed by me Problem List/Assessment/Plan Problem List/Assessment/Plan Possible GI bleeding, rule out gastric ulcer, peptic ulcer disease, duodenal ulcers, angiodysplasias Severe anemia, status post blood transfusion x3 Possible aspiration pneumonia, Gram-positive versus Gram-negative Metabolic encephalopathy due to above Bilateral pleural effusions Septic shock due to above Lactic acidosis due to above Acute hypoxic respiratory failure due to above ARIEL on CKD stage 2 likely due to VMN Renal mass, rule out neoplasia Liver mass, rule out neoplasia Possible liver cirrhosis Proctocolitis, rule out gastroenteritis, infectious versus noninfectious Hypertensive heart disease/ HFmrEF History of GERD History of hypertension History of hypothyroidism History of chronic back pain History of osteoarthritis History of dementia Plan: Maintain hemoglobin above eight, monitor CBC , pending stool occult blood Protonix 40 mg IV b.i.d. NPO Crew Chief following Continue broad-spectrum antibiotics with cefepime IV, vancomycin IV. Continue DuoNebs Pending blood culture, urine culture, sputum culture, MRSA, COVID and flu negative Maintain nasal cannula, saturation above 92%. Continue Levophed, maintain map about 60 Continue IV fluid boluses We will consider CT abdomen with contrast once kidney function improves and depending on patient's prognosis Order liver ultrasound Order head CT Goals of care were discussed for over 30 minutes. DNR/DNI. We had a lengthy discussion today with the family members and we explained the current patient status, poor prognosis. They agreed to put the patient on hospice at home. Case was discussed with Dr. Phelps Plan discussed with: Patient, Spouse, Daughter, Other (RN) My Orders My Orders Orders - JANEY BANKS Procedure Category Date Status Time Electrocardigram EKG 07/25/24 Logged 09:54 Mrsa Screen ADAN 07/25/24 Logged 10:08 Stool Bacterial ADAN 07/25/24 Logged Culture 10:08 Stool Wbc LAB 07/25/24 Logged 10:08 Clostridium Difficile ADAN 07/25/24 Logged Toxin 10:08 Morphine Sulfate PHA 07/25/24 In Process Injection 12:00 Chest Portable XY 07/25/24 Resulted 11:48 * Picc Line Consult CONS 07/25/24 Transmitted 15:20 CC Plasma Assessment Blood Product Administration S: [id number] Date of Service: Jul 25, 2024 Billing Provider: SAMREEN PHELPS MD Common Visit Codes: [id number] INP/OBS CARE(HIGH) JANEY BANKS RESIDENT Jul 25, 2024 18:14 SAMREEN PHELPS MD Jul 26, 2024 11:00
[2024-07-25] MEDS: LIDOCAINE 1% (LOCAL ANESTH.) PF 5ml SDV ID ONE (18:25)
[2024-07-25] MEDS: ALBUTEROL SULF 2.5 MG/0.5ML(0.5%) NEB SOLN NEB SCH (20:22)
[2024-07-25] MEDS: IPRATROPIUM BROM 0.5 MG/2.5ML INH SOL NEB SCH (20:23)
--- NOTE | 2024-07-25 21:23 | DVH ---
INDICATION: liver mass TECHNIQUE: Multiple real-time sonographic images of the abdomen were obtained. COMPARISON: None FINDINGS: The liver is homogenous in echogenicity. The liver measures 15 cm cm. No intrahepatic bili cheryl ductal dilatation is noted. There appears to be a 4 x 2.4 x 2.4 cm hypoechoic mass in the right l obe of the liver. Capsule of the liver appears somewhat nodular lobulated. The gallbladder wall measures 0.17 cm and is unremarkable. No gallstones or sludge is seen. The co mmon duct measures 0.87 cm and is dilated. No pericholecystic fluid is noted. The right kidney measures 10.8 cm. Questionable mass lower pole right kidney No hydronephrosis. The pancreas is not well visualized due to obscuration from bowel gas. 9 mm avascular anechoic mass h ead of the pancreas consistent with a small cyst The visualized portions of the IVC and aorta are grossly unremarkable. IMPRESSION: 1. 15 cm liver. 4 x 2.4 x 2.4 cm hypoechoic mass in the right lobe of the liver etiology uncertain. Capsule of the liver appears lobulated. 2. Mildly dilated common bile 8.7 mm and gallbladder with a negative ultrasound Matson's sign. 3. 9 mm cyst of the pancreas. 4. Small right pleural effusion.
[2024-07-25] MEDS: SODIUM CHLOR 0.9% PF (SALINE LOCK) 10ML VIAL/SYR IV SCH (22:16)
[2024-07-26] VITALS (84 sets, daily range): BP systolic 97–149; BP diastolic 21–99; PULSE 63–99; RESP 10–25; TEMP 97.5–98.8; O2SAT 84–100
[2024-07-26 05:22] LABS: Basophils # (auto) 0 10 ^3/uL (0-0.2); Basophils % (auto) 0.2 % (0.0-2.0); Eosinophils # (auto) 0.1 10 ^3/uL (0-0.8); Eosinophils % (auto) 0.8 % (0.0-7.0); Hematocrit 29.5 % (36.0-46.0); Lymphocytes # (auto) 0.8 10 ^3/uL (0.4-5.4); Lymphocytes % (auto) 10.2 % (10.0-50.0); Mean Corpuscular Hemoglobin 30.5 pg (28.0-32.0); Mean Corpuscular Hgb Conc. 33.8 g/dL (32.0-36.0); Mean Corpuscular Volume 90.3 fL (80.0-100.0); Monocytes # (auto) 0.7 10 ^3/uL (0-1.3); Monocytes % (auto) 9.3 % (0.0-12.0); Neutrophils # (auto) 6.3 10 ^3/uL (1.6-8.6); Neutrophils % (auto) 79.5 % (37.0-80.0); Nucleated Red Blood Cells % 0.2 %; Platelet Count (auto) 123 10^3/uL (140-450); Red Blood Cells 3.26 10^6/uL (4.0-5.20); Red Cell Distribution Width 15.6 % (11.8-14.3); White Blood Cell 7.9 10^3/uL (4.4-10.8)
[2024-07-26 05:36] LABS: Alkaline Phosphatase 83 U/L (46-116); Anion Gap 10 (5-15); BUN/Creatinine Ratio 60.2 (10.0-20.0); Magnesium 2.3 mg/dL (1.6-2.6); Potassium 3.5 mmol/L (3.5-5.1); Sodium 144 mmol/L (136-145)
[2024-07-26 05:37] LABS: Bilirubin, Total 0.7 mg/dL (0.2-1.0)
[2024-07-26 05:44] LABS: Alanine Aminotransferase 44 U/L (7-40); Albumin 2.7 g/dL (3.2-4.8); Aspartate Aminotransferase 93 U/L (13-40); Blood Urea Nitrogen 59 mg/dL (9-23); Calcium 8.1 mg/dL (8.7-10.4); Carbon Dioxide 19 mmol/L (20-31); Chloride 115 mmol/L (98-107); Glucose 111 mg/dL (74-106)
[2024-07-26] MEDS: IPRATROPIUM BROM 0.5 MG/2.5ML INH SOL NEB SCH (06:39)
[2024-07-26] MEDS: ALBUTEROL SULF 2.5 MG/0.5ML(0.5%) NEB SOLN NEB SCH (06:39)
[2024-07-26 07:07] LABS: AFP Serum Tumor Marker <1.8 ng/mL (0.0-8.7); Cancer Antigen (CA) 125 22.9 U/mL (0.0-38.1)
--- NOTE | 2024-07-26 07:41 | DVHSR ---
APPROVED REPORT EXAM: Two-dimensional and M-mode echocardiogram with Doppler and color Doppler. Blood Pressure: 128/49 mmHg INDICATION Elevated trops RISK FACTORS Height: 5'4", Weight: 141 DIMENSIONS LVDd5.3 (3.8-5.7cm)LA (2D)4.5 (1.9-4.0cm)Aortic Root3.0 (2.0-3.7cm) LVDs4.3 (2.5-4.0cm)LA (MM) (1.9-4.0cm)Aortic Cusp Exc1.8 (1.5-2.0cm) EF (%) 40.0 (55-70%)Rt. Atrium4.3 (1.9-4.0cm)Asc. Aorta cm IVSd0.9 (0.7-1.1cm)RV (D)3.9 (1.8-2.4cm) PWd0.9 (0.7-1.1cm) Mitral Valve MitralMitral Stenosis E wave1.19m/sMV Mean GR.mmHg A wave1.05m/sMV Peak GR.mmHg E/A ratio1.12D MVAcm2 DECEL [id number] 1/2 Timems Aortic Valve Aortic ValveAortic Stenosis V11.02m/Sandi Mean GR.6mmHg V21.85m/Sandi Peak GR.14mmHg LVOT Diameter1.9 (1.8-2.4cm)Doppler AVA1.56cm2 Pulmonic Valve V21.47m/s Tricuspid Valve TR Velocity3.02m/s [id number] Conclusion lvef 45% dilated LV left atrium enlargeed moderate moderate mitral regurg aortic sclerosis
[2024-07-26] MEDS ORDERED: CEFEPIME 1GM/ 50ML 50 ML IV SCH (10:00)
--- NOTE | 2024-07-26 10:17 | DVH ---
FINDINGS: Prior MRI demonstrates generalized cortical atrophy and probable ischemia involving the posterior watersheds. In the current study there is generalized cortical atrophy and ischemic changes are seen in the posterior watershed. The hippocampal structures are symmetric there are no midline shifts midline structures are normal given the level of atrophy. No evidence for acute stroke intracranial hemorrhage or fluid collection. IMPRESSION: 1. Generalized cortical atrophy with posterior watershed ischemia with no acute findings SON NGUYEN
--- NOTE | 2024-07-26 10:19 | DVHINCON2 ---
Date Seen: Jul 26, 2024 Referring Physician MD Brian Reason for Consultation Elevated troponin History of Present Illness This is an 89-year-old female who presented to the emergency room via EMS with a chief complaint of generalized weakness since Thursday. Per family at bedside including daughters and , the patient developed a lower GI bleed associated with loose black tarry stools on Thursday with further events over the weekend and then associated with some phlegm and pale/ashy appearance prompting to call 911. Upon EMS arrival the patient was found with a systolic blood pressure in the 80s mmHg and a blood glucose level of 176 ng/dL. She was medicated with IV fluids en route to the hospital. She is currently on a low- dose Levophed drip and has undergone multiple blood transfusions. A 12 lead electrocardiogram revealed an atrial fibrillation rhythm at a controlled rate with an associated left bundle branch block. Troponin levels are trending up prompting cardiology evaluation, latest in the 600s ng/L. Significant medical history includes hypertension, hypothyroidism, left lower extremity sciatica, chronic lower back pain, and dementia. Past Medical History Past medical history reviewed. No other significant than mentioned above. Past Surgical History Appendectomy Tonsillectomy Back surgery for spinal stenosis Family History: Family history: Diabetes mellitus G8 MOTHER G8 FATHER Family History Family history reviewed. Social History Denies the use of illicit drugs, alcohol, or tobacco use. Allergies: Coded Allergies: NO KNOWN ALLERGIES (Unverified , 10/16/16) Home Meds Active Scripts Diclofenac Sodium (Topical) (Voltaren Arthritis Pain) 1 % Gel, 1 % EX HS for 30 Days, #1 GEL 0 Refills Prov:WILIAN WEST MD 06/12/24 Baclofen (Baclofen) 5 Mg Tab, 5 MG PO HS for 5 Days, #5 TAB Prov:WILIAN WEST MD 06/12/24 Lidocaine (LIDODERM 5% TOPICAL PATCH) 1 Patch Ph, 1 PATCH TOP DAILY, #30 PATCH 0 Refills Prov:WILIAN WEST MD 06/12/24 Hydrocodone-Acetaminophen (Hydrocodone Bitartrate/AC 5-325 mg) 1 Tab Tab, 1 TAB PO TIDP PRN for 7 Days, #21 TAB 0 Refills Prov:WILIAN WEST MD 06/12/24 Carbamide Peroxide (Debrox) 6.5 % Agustina, 6.5 % OT BID for 3 Days, #10 ML Prov:MALLIKA BUTLER MD 10/24/22 Reported Medications Hydrochlorothiazide (Hydrochlorothiazide) 25 Mg Tab, 25 MG PO DAILY, MG 06/10/24 Losartan Potassium (Losartan Potassium) 100 Mg Tab, 100 MG PO DAILY, MG 06/10/24 Levothyroxine Sodium (Levothyroxine Sodium) 112 Mcg Tab, 112 MCG PO DAILY for 30 Days, MCG 10/20/16 Amlodipine Besylate (Amlodipine Besylate) 5 Mg Tab, 5 MG PO DAILY for 30 Days, MG 10/20/16 Home Meds Home medications reviewed. Current Medications Current Medications Medications (Trade) Dose Ordered Sig/Yas Route PRN Reason Start Time Stop Time Status Last Admin Cefepime HCl 50 ml @ 12.5 mls/hr DAILY IV 07/26/24 10:00 Pantoprazole Sodium (Protonix) 40 mg BID IV 07/25/24 10:00 07/25/24 22:16 Zirconium Oxide (Lokelma) 10 gm TID PO 07/25/24 14:00 07/25/24 11:51 DC Morphine Sulfate 1 mg Q6HP PRN IV SEVERE PAIN (7-10 PAIN SCALE) 07/25/24 12:00 Sodium Chloride (Saline Lock Ns) 10 ml QSHIFT@10,22 IV 07/25/24 22:00 07/25/24 22:16 Ipratropium [place] (Atrovent Medneb) 0.5 mg Q6HWA NEB 07/25/24 20:00 07/26/24 04:38 DC 07/25/24 20:23 Albuterol (Ventolin Medneb) 2.5 mg Q6HWA NEB 07/25/24 20:00 07/26/24 04:38 DC 07/25/24 20:22 Albuterol (Ventolin Medneb) 2.5 mg Q6HWA NEB 07/26/24 06:00 07/26/24 06:39 Ipratropium [place] (Atrovent Medneb) 0.5 mg Q6HWA NEB 07/26/24 06:00 07/26/24 06:39 Review of Systems Constitutional: Generalized weakness Ears, Nose, & Throat: No symptom reported Eyes: No symptom reported Neurological: No symptoms reported Pulmonary/Respiratory: No symptom reported Cardiovascular: No symptom reported Gastrointestinal: Lower GI bleed Genitourinary: No symptom reported Musculoskeletal: No symptom reported Skin: No symptom reported Psychiatric: No symptom reported Endocrine: No symptom reported Hemotologic/Lymphatic: No symptom reported Vital Signs Vital Signs Date Time Temp Pulse Resp B/P (MAP) Pulse Ox O2 Delivery O2 Flow Rate FiO2 07/26/24 08:00 98.2 75 19 120/76 (91) 99 98.2 07/26/24 06:39 Room Air* 0 21 Physical Exam General Appearance: A&O x2. Thin. In no acute distress Head Exam: Normal inspection Neck Exam: Normal inspection. Normal alignment Pulmonary/Respiratory: Diminished bilateral breath sounds Cardiovascular/Chest: Irregularly irregular rate and rhythm. AFib with LBBB, controlled rate. Peripheral Pulses: 2+ Radial (R). 2+ Radial (L). 2+ Pedal (R). 2+ Pedal (L) Abdominal Exam: Normal bowel sounds. Soft. Ankle Exam: Negative ankle edema Lower extremities: Negative lower extremity edema Neuro/Mental Status: A&O x2 Thoughts/Psych: Intermittent episodes of agitation Appearance: In no acute distress Skin Exam: Normal inspection. Pale color. Warm. Dry Labs/Diagnostic Data Labs Test 07/26/24 04:50 07/25/24 16:49 07/25/24 16:19 07/25/24 10:45 Range/Units White Blood Count 7.9 # 4.4-10.8 10^3/uL Red Blood Count 3.26 L 4.0-5.20 10^6/uL Hemoglobin 10.0 L 12.2-16.2 g/dL Hematocrit 29.5 L 36.0-46.0 % Mean Corpuscular Volume 90.3 80.0-100.0 fL Mean Corpuscular Hemoglobin 30.5 28.0-32.0 pg Mean Corpuscular Hemoglobin Concent 33.8 32.0-36.0 g/dL Red Cell Distribution Width 15.6 H 11.8-14.3 % Platelet Count 123 L 140-450 10^3/uL Mean Platelet Volume 8.5 6.9-10.8 fL Neutrophils (%) (Auto) 79.5 37.0-80.0 % Lymphocytes (%) (Auto) 10.2 10.0-50.0 % Monocytes (%) (Auto) 9.3 0.0-12.0 % Eosinophils (%) (Auto) 0.8 0.0-7.0 % Basophils (%) (Auto) 0.2 0.0-2.0 % Neutrophils # (Auto) 6.3 1.6-8.6 10 ^3/uL Lymphocytes # (Auto) 0.8 0.4-5.4 10 ^3/uL Monocytes # (Auto) 0.7 0-1.3 10 ^3/uL Eosinophils # (Auto) 0.1 0-0.8 10 ^3/uL Basophils # (Auto) 0 0-0.2 10 ^3/uL Nucleated Red Blood Cells 0.2 % Sodium Level 144 # 136-145 mmol/L Potassium Level 3.5 3.5-5.1 mmol/L Chloride Level 115 H 98-107 mmol/L Carbon Dioxide Level 19 L 20-31 mmol/L Anion Gap 10 5-15 Blood Urea Nitrogen 59 #H 9-23 mg/dL Creatinine 0.98 # 0.550-1.02 mg/dL Glomerular Filtration Rate Calc 55 >90 mL/min BUN/Creatinine Ratio 60.2 H 10.0-20.0 Serum Glucose 111 H 74-106 mg/dL Lactic Acid Level 1.0 0.4-2.0 mmol/L Calcium Level 8.1 L 8.7-10.4 mg/dL Magnesium Level 2.3 1.6-2.6 mg/dL Total Bilirubin 0.7 0.2-1.0 mg/dL Aspartate Amino Transferase (AST) 93 H 13-40 U/L Alanine Aminotransferase (ALT) 44 H 7-40 U/L Alkaline Phosphatase 83 46-116 U/L Troponin I High Sensitivity 644 *H </=34 ng/L Total Protein 4.0 L 5.7-8.2 g/dL Albumin 2.7 L 3.2-4.8 g/dL Random Vancomycin Level 8.7 5-10 ug/mL Carcinoembryonic Antigen 2.99 <=5.0 ng/mL Tumor Marker Alpha Fetoprotein <1.8 0.0-8.7 ng/mL CA 125 Antigen 22.9 0.0-38.1 U/mL Ammonia 17 11-32 umol/L Test 07/25/24 08:43 07/25/24 06:45 07/25/24 05:24 07/25/24 02:45 Range/Units Iron Level 28 L 50-170 ug/dL Total Iron Binding Capacity 182 L 250-425 ug/dL Percent Iron Saturation 15.4 15-50 % Ferritin 2924.8 H 10-291 ng/mL Free Thyroxine (T4) Calculated 1.16 0.89-1.76 ng/dL Total Triiodothyronine (TT3) 0.42 L 0.60-1.81 ng/mL POC Glucose 126 H 70-106 mg/dl Influenza Type A Antigen Negative Negative Influenza Type B Antigen Negative Negative SARS-CoV-2 Antigen (Rapid) Negative NEGATIVE Reticulocyte Count (auto) 2.72 H 0.5-1.5 % B-Type Natriuretic Peptide 75.08 0-100 pg/mL Vitamin B12 Level 621 211-911 pg/mL Folic Acid 10.22 >5.38 ng/mL Thyroid Stimulating Hormone (TSH) 14.55 H 0.55-4.78 uIU/mL Test 07/25/24 02:15 07/24/24 21:42 07/24/24 18:31 Range/Units Blood Gas Specimen Type Arterial Blood Gas Sample Site Right radial Blood Gas Patient Temperature 37.0 Arterial Blood Date Drawn [id number] Arterial Blood pH 7.437 7.350-7.450 Arterial Blood Partial Pressure CO2 25.0 L 32.0-45.0 mmHg Arterial Blood Partial Pressure O2 86.9 83.0-108.0 mmHg Arterial Blood HCO3 16.5 L 21.0-28.0 mmol/L Arterial Blood Oxygen Saturation 96.0 94.0-98.0 % Arterial Blood Base Excess -6.9 L -2.0-3.0 mmol/L Arterial Blood Oxyhemoglobin 94.4 94.0-98.0 % Arterial Blood Carboxyhemoglobin 1.0 0.5-1.5 % Arterial Blood Methemoglobin 0.7 0.0-1.5 % Raman Test Modified Blood Gas Total Hemoglobin 7.00 L 12.0-16.0 g/dL Blood Gas Liter Flow 2.00 Blood Gas Modality Nasal cannula FiO2 % 28.0 Urine Color Yellow Yellow Urine Clarity Clear Clear Urine pH 5.0 5.0-9.0 Urine Specific [place] 1.020 1.001-1.035 Urine Protein Negative Negative Urine Ketones Negative Negative Urine Blood Negative Negative /uL Urine Nitrite Negative Negative Urine Bilirubin Negative Negative Urine Urobilinogen Normal Negative mg/dL Urine Leukocyte Esterase 1+ Negative /uL Urine RBC 2 0 - 4 /hpf Urine Microscopic WBC 3 0-5 /HPF Urine Squamous Epithelial Cells None seen <5 /hpf Urine Bacteria None seen None Seen /hpf Urine Hyaline Casts Few 0 - 2 /lpf Urine Glucose Normal Normal mg/dL Prothrombin Time 12.1 H 9.3-11.8 sec Prothrombin Time INR 1.16 H 0.9-1.15 Activated Partial Thromboplast Time 27.1 24.5-34.5 SEC Microbiology Date/Time Source Procedure Growth Status 07/24/24 18:10 Blood Blood Culture - Preliminary NO GROWTH AFTER 24 HOURS OF INCUBATION. Resulted Assessment Hypovolemic shock Pneumonia Severe anemia with associated lower GI bleed Likely NSTEMI type 2 secondary to above Atrial fibrillation with a associated LBBB, newly diagnosed Chronic compensated HFmrEF, newly diagnosed Dementia Plan/Recommendation (Dr. Plascencia) Echocardiogram revealed LVEF 45% with dilated LV and left atrium enlargement. The patient with newly diagnosed AFib with an associated LBBB we will be held off anticoagulation therapy given a lower GI bleed including multiple blood transfusions. Continue vasopressor for hemodynamic support. Agree with hospice care. There is no further cardiac workup indicated at this time. Kindly call if in need to re-consult. Thank you for allowing us to participate in this patient's care. This medical document was created using an electronic medical record system with voice recognition software and computerized dictation system. Although this document has been carefully reviewed, there might still be some phonetic and typographical errors. Occasional wrong-word or ``sound-alike substitutions m ay have occurred due to the inherent limitations of voice recognition software. These areas are purely typographical due to imperfections of the software programs and do not reflect any compromise in the patient's medical care. Please read the chart carefully and recognize, using context, where these substitutions have occurred. Plan discussed with: Spouse, Daughter, Other NYHA Physical activity limitations: NA Date of Service: Jul 26, 2024 Billing Provider: GRAHAM HERRERA Cardiology Common Codes: [id number] INP/OBS CARE (High) GRAHAM HERRERA Jul 26, 2024 10:19
--- NOTE | 2024-07-26 11:22 | ECG ---
[facility] Test Date: 2024-07-26 Test Time: 05:56:10 Pat Name: SARAH OCASIO Department: Room: 0281 Gender: F Physiological Chemist: JESUS : [id number] Requested By: SHASHI GR Order Number: [id number] Reading MD: Jeff Plascencia Measurements Intervals [place] Rate: 72 P: 0 GA: 0 QRS: -25 QRSD: 142 T: 122 QT: 446 QTc: 488 Interpretive Statements Atrial fibrillation Left bundle branch block Electronically Signed On 07-27-2024 20:59:20 PDT by Jeff Plascencia Please click the below link to view image of tracing.
[2024-07-26] MEDS: CEFEPIME 1GM/ 50ML 50 ML IV SCH (11:24)
[2024-07-26] MEDS ORDERED: AZIT-43 PO (13:22)
[2024-07-26] MEDS: SODIUM CHLORIDE 0.9% 250 ML IV ONE (13:54)
[2024-07-26] MEDS: VANCOMYCIN 750mg/150ml 150 ML IV SCH (15:16)
--- NOTE | 2024-07-26 15:16 | DVHPNRES ---
Progress Note Date Seen: Jul 26, 2024 Resident Creating Document: JANEY BANKS RESIDENT Medical Necessity Reason Pt with a Central, PICC or Fol: No The following are medically ne: PICC Line, Crump Catheter Subjective Review of Systems On my assessment, patient was seen and examined at bedside. She currently states feeling better than on admission, A&Ox1, denies any significant chest pain, abdominal pain, dysuria, nausea, vomiting, diarrhea, constipation, dizziness, lightheadedness. She is currently on room air, still on Levophed at two. We have started clear liquid diet Objective vital signs Vital Sign Date Time Temp Pulse Resp B/P (MAP) Pulse Ox O2 Delivery O2 Flow Rate FiO2 07/26/24 14:00 19 96 Room Air* 0 21 07/26/24 12:00 98.7 71 114/58 (76) 98.7 Total Intake and Output 07/25/24 07/25/24 07/26/24 15:00 23:00 07:00 Intake Total 750 ml 145.975 ml 90.00 ml Output Total 300 ml 1450 ml Balance 750 ml -154.025 ml -1360.00 ml medications Current Medications Medications Dose Ordered Sig/Yas Route Start Time Stop Time Status Last Admin Dose Admin Norepinephrine Bitartrate 250 ml @ 3.75 mls/hr Q24H IV 07/24/24 20:00 07/26/24 11:25 3.75 MLS/HR Nitroglycerin 0.4 mg Q5MINP PRN SL 07/25/24 01:30 Morphine Sulfate 2 mg Q30M PRN IV 07/25/24 01:30 Vancomycin HCl 0 ml @ 0 mls/hr UD IV 07/25/24 01:30 Pantoprazole Sodium 40 mg BID IV 07/25/24 10:00 07/26/24 11:24 40 MG Morphine Sulfate 1 mg Q6HP PRN IV 07/25/24 12:00 Sodium Chloride 10 ml QSHIFT@10,22 IV 07/25/24 22:00 07/26/24 11:24 10 ML Albuterol 2.5 mg Q6HWA NEB 07/26/24 06:00 07/26/24 11:45 2.5 MG Ipratropium [place] 0.5 mg Q6HWA NEB 07/26/24 06:00 07/26/24 11:45 0.5 MG Cefepime HCl 50 ml @ 12.5 mls/hr Q12HR IV 07/26/24 10:15 07/26/24 11:24 12.5 MLS/HR Vancomycin HCl 150 ml @ 120 mls/hr Q24H IV 07/26/24 14:00 Examination Physical examination as below: General: Awake, alert, comfortable appearing, in no acute distress. A&O x1 HEENT: Head is normocephalic and atraumatic. Pupils are equal, round, and reactive to light. Extraocular muscles are intact Neck: Supple with no cervical lymphadenopathy. Heart: Regular rate without murmur, rub, or gallop. Lungs: Mild to moderate bilateral crackles, no wheezing Abdomen: No external sign of injury. Bowel sounds are present. Abdomen is soft, nontender. No rebound, no guarding, no rigidity. There are no palpable masses. There is no flank pain on exam. Extremities: Faint peripheral pulses. There is no clubbing, no cyanosis, and no edema. Skin: No rash. Neurologic: Cranial nerves II-XII intact without motor, sensory deficit. laboratory and microbiology Laboratory Tests 07/26/24 04:50 Test 07/26/24 04:50 Range/Units Serum Glucose 111 H 74-106 mg/dL Microbiology Date/Time Source Procedure Growth Status 07/26/24 04:00 Nose MRSA Screen - Final Complete 07/24/24 18:10 Blood Blood Culture - Preliminary NO GROWTH AFTER 24 HOURS OF INCUBATION. Resulted Labs and/or images reviewed: Labs reviewed by me, Image(s) reviewed by me Problem List/Assessment/Plan Problem List/Assessment/Plan Possible GI bleeding, rule out gastric ulcer, peptic ulcer disease, duodenal ulcers, angiodysplasias Severe anemia, status post blood transfusion x3 Possible aspiration pneumonia, Gram-positive versus Gram-negative Metabolic encephalopathy due to above Bilateral pleural effusions Septic shock due to above Lactic acidosis due to above Acute hypoxic respiratory failure due to above ARIEL on CKD stage 2 likely due to VMN Renal mass, rule out neoplasia Liver mass, rule out neoplasia Possible liver cirrhosis Proctocolitis, rule out gastroenteritis, infectious versus noninfectious Hypertensive heart disease/ HFmrEF History of GERD History of hypertension History of hypothyroidism History of chronic back pain History of osteoarthritis History of dementia Plan: Maintain hemoglobin above eight, monitor CBC , pending stool occult blood Protonix 40 mg IV b.i.d. Clear liquid diet Supervisor [employer] following Continue broad-spectrum antibiotics with cefepime IV, vancomycin IV. Continue DuoNebs Pending blood culture, urine culture, sputum culture, MRSA, COVID and flu negative Maintain nasal cannula, saturation above 92%. Continue Levophed, maintain map about 60 Continue IV fluid boluses head CT, unremarkable DC planning home with hospice Goals of care were discussed for over 30 minutes. DNR/DNI. We had a lengthy discussion today with the family members and we explained the current patient status, poor prognosis. They agreed to put the patient on hospice at home. Case was discussed with Dr. Phelps Plan discussed with: Patient, Spouse, Daughter, Other (RN) My Orders My Orders Orders - JANEY BANKS RESIDENT Procedure Category Date Status Time * Picc Line Consult CONS 07/25/24 Transmitted 15:20 Communication Order ORDERS 07/25/24 Transmitted 18:15 DNR [place] 07/25/24 In Process 19:40 Code Status CODE 07/25/24 Transmitted 19:40 Change Dressing Prn [place] 07/25/24 In Process 19:44 Sodium Chloride Lock PHA 07/25/24 In Process (Saline Lock Ns) 22:00 Do Not Use Picc For [facility] 07/25/24 In Process Blood Cult 19:44 May Draw Blood From [facility] 07/25/24 In Process Picc 19:44 Ok To Use Picc [place] 07/25/24 In Process 19:44 Change Picc Dressing [facility] 07/25/24 In Process Q7 Days 19:44 LIVER US 07/25/24 Resulted 19:[address] 07/26/24 Resulted 04:00 Albuterol Medneb PHA 07/26/24 In Process (Ventolin Medneb) 06:00 Ipratropium Medneb PHA 07/26/24 In Process (Atrovent Medneb) 06:00 Mrsa Screen ADAN 07/26/24 Logged 05:16 Clear Liq Diet DIET 07/26/24 Transmitted Breakfast * O And M Supervisor CONS 07/26/24 Transmitted Consult CC Plasma Assessment Blood Product Administration S: [id number] Date of Service: Jul 26, 2024 Billing Provider: SAMREEN PHELPS MD Common Visit Codes: [id number] INP/OBS CARE(HIGH) JANEY BANKS RESIDENT Jul 26, 2024 15:16 SAMREEN PHELPS MD Jul 26, 2024 18:29
--- NOTE | 2024-07-26 19:17 | DVHPN2 ---
Progress Note - Dictate Date Seen: Jul 26, 2024 Medical Necessity Reason Pt with a Central, PICC or Fol: No The following are medically ne: PICC Line, Crump Catheter Subjective Patient seen at bedside in [place] to 65 No new complaints and no further active GI Hemoglobin is up to 10 after 3 units PRBC Cardiology has evaluated patient for AFib, ejection fraction is 45% vital signs Vital Sign Date Time Temp Pulse Resp B/P (MAP) Pulse Ox O2 Delivery O2 Flow Rate FiO2 07/26/24 18:15 89 21 102/60 (74) 96 07/26/24 18:00 Room Air* 0 21 07/26/24 16:00 98.4 98.4 Total Intake and Output 07/25/24 07/25/24 07/26/24 15:00 23:00 07:00 Intake Total 750 ml 145.975 ml 90.00 ml Output Total 300 ml 1450 ml Balance 750 ml -154.025 ml -1360.00 ml medications Current Medications Medications Dose Ordered Sig/Yas Route Start Time Stop Time Status Last Admin Dose Admin Norepinephrine Bitartrate 250 ml @ 3.75 mls/hr Q24H IV 07/24/24 20:00 07/26/24 11:25 3.75 MLS/HR Nitroglycerin 0.4 mg Q5MINP PRN SL 07/25/24 01:30 Morphine Sulfate 2 mg Q30M PRN IV 07/25/24 01:30 Vancomycin HCl 0 ml @ 0 mls/hr UD IV 07/25/24 01:30 Pantoprazole Sodium 40 mg BID IV 07/25/24 10:00 07/26/24 11:24 40 MG Morphine Sulfate 1 mg Q6HP PRN IV 07/25/24 12:00 Sodium Chloride 10 ml QSHIFT@10,22 IV 07/25/24 22:00 07/26/24 11:24 10 ML Albuterol 2.5 mg Q6HWA NEB 07/26/24 06:00 07/26/24 18:16 2.5 MG Ipratropium [place] 0.5 mg Q6HWA NEB 07/26/24 06:00 07/26/24 18:16 0.5 MG Cefepime HCl 50 ml @ 12.5 mls/hr Q12HR IV 07/26/24 10:15 07/26/24 11:24 12.5 MLS/HR Vancomycin HCl 150 ml @ 120 mls/hr Q24H IV 07/26/24 14:00 07/26/24 15:16 120 MLS/HR Melatonin 5 mg HS PO 07/26/24 22:00 objective General: Patient is resting. No apparent distress Chest: lung gómez with crackles Heart: RRR Abdomen: non-distended, soft, +BS Ext no c/c/e laboratory and microbiology Laboratory Tests 07/26/24 04:50 Test 07/26/24 04:50 Range/Units Serum Glucose 111 H 74-106 mg/dL Problems(with codes): (1) Symptomatic anemia (2) Acute renal injury (3) Lower GI bleed (4) Diarrhea (5) Dehydration Prognosis Plan Currently her anticoagulants are on hold If the patient has no further signs of bleeding of the next 48 hours then anticoagulation can be considered Continue IV ppi, continue to monitor labs Advance to full liquid diet I discussed the option of endoscopy/colonoscopy with family at bedside They only wants supportive measures and do not want any invasive endoscopic workup Plan discussed with: Daughter, Other (SAL Nurse) CC Plasma Assessment Blood Product Administration S: [id number] KATHY LANDA MD Jul 26, 2024 19:17
[2024-07-26] MEDS: MELATONIN 5 MG TAB PO SCH (22:12)
[2024-07-27] VITALS (43 sets, daily range): BP systolic 90–155; BP diastolic 30–128; PULSE 63–122; RESP 14–28; TEMP 97.8–99.2; O2SAT 79–100
[2024-07-27 05:09] LABS: Basophils # (auto) 0 10 ^3/uL (0-0.2); Basophils % (auto) 0.3 % (0.0-2.0); Eosinophils # (auto) 0.1 10 ^3/uL (0-0.8); Eosinophils % (auto) 2.3 % (0.0-7.0); Hematocrit 24.8 % (36.0-46.0); Hemoglobin 8.6 g/dL (12.2-16.2); Lymphocytes # (auto) 0.9 10 ^3/uL (0.4-5.4); Lymphocytes % (auto) 14.4 % (10.0-50.0); Mean Corpuscular Hemoglobin 31.3 pg (28.0-32.0); Mean Corpuscular Hgb Conc. 34.7 g/dL (32.0-36.0); Mean Corpuscular Volume 90.3 fL (80.0-100.0); Monocytes # (auto) 0.8 10 ^3/uL (0-1.3); Monocytes % (auto) 12.4 % (0.0-12.0); Neutrophils # (auto) 4.5 10 ^3/uL (1.6-8.6); Neutrophils % (auto) 70.6 % (37.0-80.0); Nucleated Red Blood Cells % 0.1 %; Platelet Count (auto) 103 10^3/uL (140-450); Red Blood Cells 2.75 10^6/uL (4.0-5.20); Red Cell Distribution Width 15.2 % (11.8-14.3); White Blood Cell 6.4 10^3/uL (4.4-10.8)
[2024-07-27 05:29] LABS: Alanine Aminotransferase 35 U/L (7-40); Alkaline Phosphatase 67 U/L (46-116); Anion Gap 8 (5-15); Aspartate Aminotransferase 44 U/L (13-40); BUN/Creatinine Ratio 49.2 (10.0-20.0); Blood Urea Nitrogen 31 mg/dL (9-23); Carbon Dioxide 21 mmol/L (20-31); Chloride 116 mmol/L (98-107); Glucose 95 mg/dL (74-106); Potassium 3.1 mmol/L (3.5-5.1); Sodium 145 mmol/L (136-145); Total Protein 3.9 g/dL (5.7-8.2)
[2024-07-27 05:30] LABS: Bilirubin, Total 0.7 mg/dL (0.2-1.0)
[2024-07-27 05:33] LABS: Albumin 2.5 g/dL (3.2-4.8)
[2024-07-27] MEDS: POTASSIUM CHL 20MEQ/50ML 50 ML IV SCH (06:28)
[2024-07-27] MEDS: SODIUM CHL 0.9% 100 ML IV ONE (06:29)
[2024-07-27] MEDS: POTASSIUM EFFERVESENT TAB 25 MEQ PO ONE (10:09)
[2024-07-27] MEDS: SUCRALFATE 1 GM/10 ML ORAL SUSP PO SCH (10:57)
--- NOTE | 2024-07-27 13:19 | DVH ---
LEFT Upper Extremity Venous Duplex Clinical History: r/o dvt, left arm pain and swelling Comparison: None Findings: Duplex Doppler evaluation of the venous system of the LEFT lower neck and upper extremity including c olor Doppler and spectral/pulsed waveform analysis was performed. The internal jugular vein demonstrates appropriate compressibility and waveform variability. The subclavian vein is patent on color Doppler evaluation without intraluminal thrombus and demonstra tejinder waveform variability. The visualized portion of the brachiocephalic vein is patent on color Doppler evaluation without intr aluminal thrombus and demonstrates waveform variability. The axillary vein demonstrates appropriate compressibility and waveform variability. The brachial veins demonstrate appropriate compressibility and patency on Doppler evaluation. The basilic vein demonstrates appropriate compressibility and patency on Doppler evaluation. The cephalic vein demonstrates appropriate compressibility and patency on Doppler evaluation. Impression: No venous thrombus identified in the LEFT upper extremity vessels evaluated above. If clinical concern/symptoms persist or worsen, short-interval follow-up study is suggested.
--- NOTE | 2024-07-27 13:50 | DVH ---
Exam: US US GUIDED VASCULAR ACCESS Date: 07/25/2024 06:50 PM Clinical History: PICC Line Insertion Comparison: None Findings: Targeted sonographic evaluation of the right basilic vein was obtained utilizing grayscale and color Doppler imaging. IMPRESSION: Sonographic assistance for central line placement. Please refer to procedural report for detailed fin dings.
--- NOTE | 2024-07-27 15:21 | DVHPN2 ---
Progress Note - Dictate Date Seen: Jul 27, 2024 Medical Necessity Reason Pt with a Central, PICC or Fol: No The following are medically ne: PICC Line, Crump Catheter Subjective Patient seen at bedside in [place] 265 No new complaints and no further active GI Small smear dark Hemoglobin is down 8.9 after 3 units PRBC Cardiology has evaluated patient for AFib, ejection fraction is 45% vital signs Vital Sign Date Time Temp Pulse Resp B/P (MAP) Pulse Ox O2 Delivery O2 Flow Rate FiO2 07/27/24 15:00 83 15 121/65 (83) 95 07/27/24 14:00 Room Air* 0 21 07/27/24 12:30 99.2 99.2 Total Intake and Output 07/26/24 07/26/24 07/27/24 15:00 23:00 07:00 Intake Total 91.25 ml 505.65 ml 375 ml Output Total 850 ml 550 ml Balance 91.25 ml -344.35 ml -175 ml medications Current Medications Medications Dose Ordered Sig/Yas Route Start Time Stop Time Status Last Admin Dose Admin Norepinephrine Bitartrate 250 ml @ 3.75 mls/hr Q24H IV 07/24/24 20:00 07/26/24 11:25 3.75 MLS/HR Nitroglycerin 0.4 mg Q5MINP PRN SL 07/25/24 01:30 Morphine Sulfate 2 mg Q30M PRN IV 07/25/24 01:30 Vancomycin HCl 0 ml @ 0 mls/hr UD IV 07/25/24 01:30 Pantoprazole Sodium 40 mg BID IV 07/25/24 10:00 07/27/24 10:10 40 MG Morphine Sulfate 1 mg Q6HP PRN IV 07/25/24 12:00 Sodium Chloride 10 ml QSHIFT@10,22 IV 07/25/24 22:00 07/27/24 10:10 10 ML Albuterol 2.5 mg Q6HWA NEB 07/26/24 06:00 07/27/24 12:27 2.5 MG Ipratropium [place] 0.5 mg Q6HWA NEB 07/26/24 06:00 07/27/24 12:27 0.5 MG Cefepime HCl 50 ml @ 12.5 mls/hr Q12HR IV 07/26/24 10:15 07/27/24 10:10 12.5 MLS/HR Vancomycin HCl 150 ml @ 120 mls/hr Q24H IV 07/26/24 14:00 07/27/24 13:54 120 MLS/HR Melatonin 5 mg HS PO 07/26/24 22:00 07/26/24 22:12 5 MG Sucralfate 1 gm QID@0600,1130,1700,2200 PO 07/27/24 11:30 07/27/24 10:57 1 GM objective General: Patient is resting. 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
--- NOTE | 2024-07-27 16:08 | DVHDSRES ---
Discharge Summary Date of Admission Resident Creating Document: JANEY BANKS RESIDENT Jul 25, 2024 at 01:19 Date of Discharge: Jul 27, 2024 Admitting Diagnosis Pneumonia Labs/Diagnostic Data: Laboratory Results Test 07/27/24 04:45 07/26/24 04:50 07/25/24 16:49 07/25/24 16:19 White Blood Count 6.4 10^3/uL (4.4-10.8) Red Blood Count 2.75 10^6/uL (4.0-5.20) Hemoglobin 8.6 g/dL (12.2-16.2) Hematocrit 24.8 % (36.0-46.0) Mean Corpuscular Volume 90.3 fL (80.0-100.0) Mean Corpuscular Hemoglobin 31.3 pg (28.0-32.0) Mean Corpuscular Hemoglobin Concent 34.7 g/dL (32.0-36.0) Red Cell Distribution Width 15.2 % (11.8-14.3) Platelet Count 103 10^3/uL (140-450) Mean Platelet Volume 7.9 fL (6.9-10.8) Neutrophils (%) (Auto) 70.6 % (37.0-80.0) Lymphocytes (%) (Auto) 14.4 % (10.0-50.0) Monocytes (%) (Auto) 12.4 % (0.0-12.0) Eosinophils (%) (Auto) 2.3 % (0.0-7.0) Basophils (%) (Auto) 0.3 % (0.0-2.0) Neutrophils # (Auto) 4.5 10 ^3/uL (1.6-8.6) Lymphocytes # (Auto) 0.9 10 ^3/uL (0.4-5.4) Monocytes # (Auto) 0.8 10 ^3/uL (0-1.3) Eosinophils # (Auto) 0.1 10 ^3/uL (0-0.8) Basophils # (Auto) 0 10 ^3/uL (0-0.2) Nucleated Red Blood Cells 0.1 % Sodium Level 145 mmol/L (136-145) Potassium Level 3.1 mmol/L (3.5-5.1) Chloride Level 116 mmol/L (98-107) Carbon Dioxide Level 21 mmol/L (20-31) Anion Gap 8 (5-15) Blood Urea Nitrogen 31 mg/dL (9-23) Creatinine 0.63 mg/dL (0.550-1.02) Glomerular Filtration Rate Calc 85 mL/min (>90) BUN/Creatinine Ratio 49.2 (10.0-20.0) Serum Glucose 95 mg/dL (74-106) Calcium Level 8.0 mg/dL (8.7-10.4) Total Bilirubin 0.7 mg/dL (0.2-1.0) Aspartate Amino Transferase (AST) 44 U/L (13-40) Alanine Aminotransferase (ALT) 35 U/L (7-40) Alkaline Phosphatase 67 U/L (46-116) Total Protein 3.9 g/dL (5.7-8.2) Albumin 2.5 g/dL (3.2-4.8) Lactic Acid Level 1.0 mmol/L (0.4-2.0) Magnesium Level 2.3 mg/dL (1.6-2.6) Troponin I High Sensitivity 644 ng/L (</=34) Random Vancomycin Level 8.7 ug/mL (5-10) Carcinoembryonic Antigen 2.99 ng/mL (<=5.0) Tumor Marker Alpha Fetoprotein <1.8 ng/mL (0.0-8.7) CA 125 Antigen 22.9 U/mL (0.0-38.1) Test 07/25/24 10:45 07/25/24 08:43 07/25/24 06:45 07/25/24 05:24 Ammonia 17 umol/L (11-32) Iron Level 28 ug/dL (50-170) Total Iron Binding Capacity 182 ug/dL (250-425) Percent Iron Saturation 15.4 % (15-50) Ferritin 2924.8 ng/mL (10-291) Free Thyroxine (T4) Calculated 1.16 ng/dL (0.89-1.76) Total Triiodothyronine (TT3) 0.42 ng/mL (0.60-1.81) POC Glucose 126 mg/dl (70-106) Influenza Type A Antigen Negative (Negative) Influenza Type B Antigen Negative (Negative) SARS-CoV-2 Antigen (Rapid) Negative (NEGATIVE) Test 07/25/24 02:45 07/25/24 02:15 07/24/24 21:42 07/24/24 18:31 Reticulocyte Count (auto) 2.72 % (0.5-1.5) B-Type Natriuretic Peptide 75.08 pg/mL (0-100) Vitamin B12 Level 621 pg/mL (211-911) Folic Acid 10.22 ng/mL (>5.38) Thyroid Stimulating Hormone (TSH) 14.55 uIU/mL (0.55-4.78) Blood Gas Specimen Type Arterial Blood Gas Sample Site Right radial Blood Gas Patient Temperature 37.0 Arterial Blood Date Drawn [id number] Arterial Blood pH 7.437 (7.350-7.450) Arterial Blood Partial Pressure CO2 25.0 mmHg (32.0-45.0) Arterial Blood Partial Pressure O2 86.9 mmHg (83.0-108.0) Arterial Blood HCO3 16.5 mmol/L (21.0-28.0) Arterial Blood Oxygen Saturation 96.0 % (94.0-98.0) Arterial Blood Base Excess -6.9 mmol/L (-2.0-3.0) Arterial Blood Oxyhemoglobin 94.4 % (94.0-98.0) Arterial Blood Carboxyhemoglobin 1.0 % (0.5-1.5) Arterial Blood Methemoglobin 0.7 % (0.0-1.5) Raman Test Modified Blood Gas Total Hemoglobin 7.00 g/dL (12.0-16.0) Blood Gas Liter Flow 2.00 Blood Gas Modality Nasal cannula FiO2 % 28.0 Urine Color Yellow (Yellow) Urine Clarity Clear (Clear) Urine pH 5.0 (5.0-9.0) Urine Specific [place] 1.020 (1.001-1.035) Urine Protein Negative (Negative) Urine Ketones Negative (Negative) Urine Blood Negative /uL (Negative) Urine Nitrite Negative (Negative) Urine Bilirubin Negative (Negative) Urine Urobilinogen Normal mg/dL (Negative) Urine Leukocyte Esterase 1+ /uL (Negative) Urine RBC 2 /hpf (0 - 4) Urine Microscopic WBC 3 /HPF (0-5) Urine Squamous Epithelial Cells None seen /hpf (<5) Urine Bacteria None seen /hpf (None Seen) Urine Hyaline Casts Few /lpf (0 - 2) Urine Glucose Normal mg/dL (Normal) Prothrombin Time 12.1 sec (9.3-11.8) Prothrombin Time INR 1.16 (0.9-1.15) Activated Partial Thromboplast Time 27.1 SEC (24.5-34.5) Other Laboratory Tests 07/27/24 04:45 Brief Hx & Hospital Course: This is a 89-year-old female who presents with ALOC and hypotension, diarrhea and dark stool. Past Medical History: baseline dementia, hypertension, hyperlipidemia, hypothyroidism, chronic back pain Past Surgical History: appendectomy, tonsillectomy, and back surgery for spinal stenosis SH: Family History: Other (Noncontributory). Smoke: No. Drugs: None. Lives: with Family She denies fever, chills, nausea, vomiting, or recent trauma. Imaging shows chronic L2 vertebral body compression fractures and degenerative changes known for over five years. She was admitted with Severe sepsis, CAP, aspiration pneumonia, proctitis and blood loss anemia needing transfusion. She lives at home as a non-smoker, family denies alcohol or drug use came to ED via EMS. Extremely poor historian, history taken from family, prior charting. S/p 20g/8cm midline inserted via R Brachial vein using Ultrasound as all iv access failure. Patient is critical in SAL status. On my initial assessment, patient was seen and examined at bedside. She currently states feeling better than on admission, A&Ox1, denies any significant chest pain, abdominal pain, dysuria, nausea, vomiting, diarrhea, constipation, dizziness, lightheadedness. She is currently NPO. I had a lengthy discussion with family members today, they stated the patient has been taking diclofenac 2 times per day for the last month, and in the last 3-4 days he has been taking naproxen as well. This is for her back pain. They state that besides that the patient has been complaining of shortness of Breath, and that she has been weak, and having low appetite. A head CT was performed which was unremarkable. Patient has a chest x-ray which demonstrated pneumoniae, a CT abdomen also demonstrated pneumonia, renal mass, liver mass, possible liver cirrhosis, proctocolitis. Patient hemoglobin was low initially, she got transfused three RBC packs, patient's hemoglobin still dropped after this from 10-8, however, patient was then refusing any other blood transfusion. Patient will also do not qualify for an EGD, and the patient's family were also requesting comfort care and to be sent to hospital at home. Patient was continued on IV antibiotics, breathing treatments, she had significant clinical improvement from admission, we managed to remove Levophed, kidney function also significantly improved. Patient tolerated clear liquid diet and was advanced to soft mechanical. On my assessment, patient was seen and examined at bedside. Currently states feeling better than on admission, alert and oriented x2 denies any significant shortness of breath, chest pain, abdominal pain, dysuria, nausea, vomiting, diarrhea, constipation, dizziness, lightheadedness. Currently tolerating diet. Physical examination as below: General: Awake, alert, comfortable appearing, in no acute distress. A&O x2 HEENT: Head is normocephalic and atraumatic. Pupils are equal, round, and reactive to light. Extraocular muscles are intact Neck: Supple with no cervical lymphadenopathy. Heart: Regular rate without murmur, rub, or gallop. Lungs: Mild bilateral crackles, improving Abdomen: No external sign of injury. Bowel sounds are present. Abdomen is soft, nontender. No rebound, no guarding, no rigidity. There are no palpable masses. There is no flank pain on exam. Extremities: Faint peripheral pulses. There is no clubbing, no cyanosis, and no edema. Skin: No rash. Neurologic: Cranial nerves II-XII intact without motor, sensory deficit. Patient will be discharge home with hospice, will continue home medications as prescribed. She will continue medications per hospice doctor. Patient verbalized understanding and agree with the DC plan, we spent over 30 minutes explaining the plan. Case was discussed with Dr. Phelps Consults/Reason for consult Insole Taper was consulted due to GI bleeding Cardiology was consulted due to elevated troponins Operations or Procedures [place] [address] Ph: [phone] DIAGNOSTIC IMAGING Diagnostic Imaging Report : [id number] Signed PATIENT: SARAH OCASIO ACCT: [id number] UNIT: [id number] : 1935 LOC: ER ROOM / BED: / AGE / SEX: 89 / F ADM STATUS: REG ER SERVICE 1700 ORDERING PHYSICIAN: DONYA GARCIA MD PROCEDURE(s): CXRP - CHEST PORTABLE REASON: SOB ORDER NUMBER(s): [id number], ACCESSION NUMBER(s): [id number] CHEST RADIOGRAPH Indication: SOB Technique: Single frontal view of the chest was obtained Comparison: XY CHEST PORTABLE on DOS: 10/23/22 FINDINGS: Lines and Tubes: None Lungs: Airspace disease worse in the right base scattered throughout the right chest. Pleura: No effusion. No pneumothorax. Cardiomediastinal contours: Unremarkable Bones: No acute osseous abnormality. IMPRESSION: 1. Airspace disease right lower lobe with involvement in the right upper lobe and perihilar region. Findings most likely represent pneumonia. HS:Y ATED BY: SOLOMON VASQUEZ Jr., DO DICTATED DATE/TIME: 07/24/241728 SIGNED BY: SOLOMON VASQUEZ Jr., SIGNED DATE/TIME: 07/24/241728 CC: [place] [address] Ph: [phone] DIAGNOSTIC IMAGING Diagnostic Imaging Report : [id number] Signed with Addenda PATIENT: SARAH OCASIO ACCT: [id number] UNIT: [id number] : 1935 LOC: ER ROOM / BED: / AGE / SEX: 89 / F ADM STATUS: REG ER SERVICE 44 ORDERING PHYSICIAN: DONYA GARCIA MD PROCEDURE(s): ABPL - CT AB PEL WO CON-NO ORAL OR IV REASON: diarrhea, GI bleeding, pain ORDER NUMBER(s): [id number], ACCESSION NUMBER(s): [id number] ADDENDUM ADDENDUM # 1 Indication: diarrhea, GI bleeding, pain Technique: CT axial images of the abdomen and pelvis are obtained without contrast. Coronal and sagittal reformats were obtained. Radiation Dose Information: CTDI volume is 7.42 mGy. Dose-length product is 376.84 mGy*cm Comparison: MRI lumbar spine from 06/10/2024 FINDINGS: There is limited interpretation of the abdomen and pelvis without administration of intravenous contrast. Examination degraded by motion. The lung bases demonstrate bibasilar consolidation. Tiny bilateral pleural effusions. Adrenal glands, spleen and pancreas unremarkable in shape. No CT evidence for cholelithiasis. Liver capsule nodule morphology. Right hepatic lobe indeterminate hypodense lesion measuring 1.9 cm. Bilateral kidneys demonstrate no hydronephrosis or nephrolithiasis. Bilateral renal hemorrhagic/ proteinaceous cysts. Indeterminate left renal lower pole lesion measuring 5.8 cm. The stomach is partially distended. The small bowel loops are normal in caliber. Presacral edema. Moderate volume stool throughout the colon. Scattered colonic diverticula. Rectal wall thickening. Abdominal aortic atherosclerotic disease. Bladder distended. Trace free pelvic fluid. No inguinal lymphadenopathy. Old right pubic ramus fracture. Multiple lumbar spine fractures better seen on previous MRI involving the L4, L2, L1 vertebral bodies. The L1 and L2 vertebral while the fractures are subacute in age. 90% loss of them 0 4 vertebral velocity changes 10 mm retropulsion. IMPRESSION: 1. Rectal wall thickening and presacral edema which can be secondary to proctocolitis. 2. Colonic diverticular disease. 3. Indeterminate left renal lower pole lesion, concerning for mass/ neoplasm as seen and described on previous MRI. Recommend MRI of the abdomen with and without contrast to evaluate for renal neoplasm. 4. Right hepatic lobe hypodense lesion measuring 1.9 cm, concerning for metastases/neoplasm. Recommend multiphasic MRI abdomen. 5. Bilateral pulmonary airspace consolidation and tiny bilateral pleural effusions. 6. Extensive atherosclerotic disease. 7. Multiple lumbar compression deformities as described 8. Possible cirrhotic morphology liver. ORIGINAL REPORT Indication: diarrhea, GI bleeding, pain Technique: CT axial images of the abdomen and pelvis are obtained without contrast. Coronal and sagittal reformats were obtained. Radiation Dose Information: CTDI volume is 7.42 mGy. Dose-length product is 376.84 mGy*cm Comparison: None FINDINGS: There is limited interpretation of the abdomen and pelvis without administration of intravenous contrast. IMPRESSION: 1. ATED BY: DHARA NAVARRO MD DICTATED DATE/TIME: 07/24/242133 SIGNED BY: DHARA NAVARRO MD SIGNED DATE/TIME: 07/24/242133 CC: Indication: diarrhea, GI bleeding, pain Technique: CT axial images of the abdomen and pelvis are obtained without contrast. Coronal and sagittal reformats were obtained. Radiation Dose Information: CTDI volume is 7.42 mGy. Dose-length product is 376.84 mGy*cm Comparison: None FINDINGS: There is limited interpretation of the abdomen and pelvis without administration of intravenous contrast. IMPRESSION: 1. ATED BY: DHARA NAVARRO MD DICTATED DATE/TIME: 07/24/242123 SIGNED BY: DHARA NAVARRO MD SIGNED DATE/TIME: 07/24/242123 CC: [place] [address] Ph: [phone] DIAGNOSTIC IMAGING Diagnostic Imaging Report : [id number] Signed PATIENT: SARAH OCASIO ACCT: [id number] UNIT: [id number] : 1935 LOC: OVERFLOW ROOM / BED: [address] [place] [address] AGE / SEX: 89 / F ADM STATUS: ADM IN SERVICE 5 ORDERING PHYSICIAN: SHASHI GR RESIDENT PROCEDURE(s): KIDUS - KIDNEY REASON: ARIEL, ORDER NUMBER(s): [id number], ACCESSION NUMBER(s): [id number] EXAM: US Retroperitoneal Limited, Renal CLINICAL INDICATION: ARIEL, TECHNIQUE: Real-time limited ultrasound of the retroperitoneum with image documentation. COMPARISON: None FINDINGS: RIGHT KIDNEY: 1.9 cm right renal cysts. No stones. No hydronephrosis. Right kidney measures 8.9 cm. LEFT KIDNEY: 4.2 cm hetero echogenic lesion in the left kidney. This can be further evaluated with multiphasic CT or MRI of the abdomen using renal mass protocol. No stones. No hydronephrosis. Left kidney measures 9.0 cm. BLADDER: Urinary bladder is decompressed by a urinary Crump catheter. OTHER FINDINGS: . IMPRESSION: 4.2 cm hetero echogenic lesion in the left kidney. This can be further evaluated with multiphasic CT or MRI of the abdomen using renal mass protocol. ATED BY: RAN SOSA MD DICTATED DATE/TIME: 07/25/24720 SIGNED BY: RAN SOSA MD SIGNED DATE/TIME: 07/25/24720 CC: [place] [address] Ph: [phone] DIAGNOSTIC IMAGING Diagnostic Imaging Report : [id number] Signed PATIENT: SARAH OCASIO ACCT: [id number] UNIT: [id number] : 1935 LOC: OVERFLOW ROOM / BED: [address] [place] [address] AGE / SEX: 89 / F ADM STATUS: ADM IN SERVICE 1148 ORDERING PHYSICIAN: JANEY BANKS PROCEDURE(s): CXRP - CHEST PORTABLE REASON: sob ORDER NUMBER(s): [id number], ACCESSION NUMBER(s): [id number] INDICATION: sob TECHNIQUE: Single frontal view of the chest was obtained COMPARISON: XY CHEST PORTABLE on DOS: 07/24/24, XY CHEST PORTABLE on DOS: 10/23/22, XY CHEST PORTABLE on DOS: 07/24/24 FINDINGS: Lines and Tubes: None Lungs: Airspace disease worse in the right base scattered throughout the right chest. Pleura: No effusion. No pneumothorax. Cardiomediastinal contours: Unremarkable Bones: No acute osseous abnormality. IMPRESSION: 1. Airspace disease right lower lobe with involvement in the right upper lobe and perihilar region. Findings most likely represent pneumonia. ATED BY: JIM DILLARD MD DICTATED DATE/TIME: 07/25/24 130 SIGNED BY: JIM DILLARD MD SIGNED DATE/TIME: 07/25/24 130 CC: [place] [address] Ph: [phone] DIAGNOSTIC IMAGING Diagnostic Imaging Report : [id number] Signed PATIENT: SARAH OCASIO ACCT: [id number] UNIT: [id number] : 1935 LOC: ICU [facility]EN[facility] ROOM / BED: 0265 / A AGE / SEX: 89 / F ADM STATUS: ADM IN SERVICE 43 ORDERING PHYSICIAN: JANEY BANKS PROCEDURE(s): USGUIVASAC - US Guided Vascular Access REASON: PICC Line Insertion ORDER NUMBER(s): [id number], ACCESSION NUMBER(s): [id number] Exam: US US GUIDED VASCULAR ACCESS Date: 07/25/2024 06:50 PM Clinical History: PICC Line Insertion Comparison: None Findings: Targeted sonographic evaluation of the right basilic vein was obtained utilizing grayscale and color Doppler imaging. IMPRESSION: Sonographic assistance for central line placement. Please refer to procedural report for detailed findings. ATED BY: JIM DILLARD MD DICTATED DATE/TIME: 07/27/241347 SIGNED BY: JIM DILLARD MD SIGNED DATE/TIME: 07/27/241347 CC: [place] [address] Ph: [phone] DIAGNOSTIC IMAGING Diagnostic Imaging Report : [id number] Signed PATIENT: SARAH OCASIO ACCT: [id number] UNIT: [id number] : 1935 LOC: OVERFLOW ROOM / BED: [address] [place] [address] / A AGE / SEX: 89 / F ADM STATUS: ADM IN SERVICE 52 ORDERING PHYSICIAN: JANEY BANKS PROCEDURE(s): LIVUS - LIVER REASON: liver mass ORDER NUMBER(s): [id number], ACCESSION NUMBER(s): [id number] INDICATION: liver mass TECHNIQUE: Multiple real-time sonographic images of the abdomen were obtained. COMPARISON: None FINDINGS: The liver is homogenous in echogenicity. The liver measures 15 cm cm. No intrahepatic biliary ductal dilatation is noted. There appears to be a 4 x 2.4 x 2.4 cm hypoechoic mass in the right lobe of the liver. Capsule of the liver appears somewhat nodular lobulated. The gallbladder wall measures 0.17 cm and is unremarkable. No gallstones or sludge is seen. The common duct measures 0.87 cm and is dilated. No pericholecystic fluid is noted. The right kidney measures 10.8 cm. Questionable mass lower pole right kidney No hydronephrosis. The pancreas is not well visualized due to obscuration from bowel gas. 9 mm avascular anechoic mass head of the pancreas consistent with a small cyst The visualized portions of the IVC and aorta are grossly unremarkable. IMPRESSION: 1. 15 cm liver. 4 x 2.4 x 2.4 cm hypoechoic mass in the right lobe of the liver etiology uncertain. Capsule of the liver appears lobulated. 2. Mildly dilated common bile 8.7 mm and gallbladder with a negative ultrasound Matson's sign. 3. 9 mm cyst of the pancreas. 4. Small right pleural effusion. ATED BY: SOLOMON VASQUEZ Jr., DO DICTATED DATE/TIME: 07/25/242120 SIGNED BY: SOLOMON VASQUEZ Jr., SIGNED DATE/TIME: 07/25/242120 CC: [place] [address] Ph: [phone] DIAGNOSTIC IMAGING Diagnostic Imaging Report : [id number] Signed PATIENT: SARAH OCASIO ACCT: [id number] UNIT: [id number] : 1935 LOC: ICU [facility] ROOM / BED: [address] [place] [address] AGE / SEX: 89 / F ADM STATUS: ADM IN SERVICE 9 ORDERING PHYSICIAN: JANEY BANKS RESIDENT PROCEDURE(s): HWOCT - HEAD WITHOUT CONTRAST REASON: [facility] ORDER NUMBER(s): [id number], ACCESSION NUMBER(s): [id number] FINDINGS: Prior MRI demonstrates generalized cortical atrophy and probable ischemia involving the posterior watersheds. In the current study there is generalized cortical atrophy and ischemic changes are seen in the posterior watershed. The hippocampal structures are symmetric there are no midline shifts midline structures are normal given the level of atrophy. No evidence for acute stroke intracranial hemorrhage or fluid collection. IMPRESSION: 1. Generalized cortical atrophy with posterior watershed ischemia with no acute findings [employer] COUN[employer] DICTATED BY: MIHIR POTTER MD DICTATED DATE/TIME: 07/26/24 0146 SIGNED BY: MIHIR POTTER MD SIGNED DATE/TIME: 07/26/24 1014 CC: [address] [address] Ph: [phone] DIAGNOSTIC IMAGING Diagnostic Imaging Report : [id number] Signed PATIENT: SARAH OCASIO ACCT: [id number] UNIT: [id number] : 1935 LOC: ICU [facility] ROOM / BED: [address] [place] [address] AGE / SEX: 89 / F ADM STATUS: ADM IN SERVICE 1146 ORDERING PHYSICIAN: JANEY BANKS RESIDENT PROCEDURE(s): LUDVT - LT Upper DVT REASON: r/o dvt, left arm pain and swelling ORDER NUMBER(s): [id number], ACCESSION NUMBER(s): [id number] LEFT Upper Extremity Venous Duplex Clinical History: r/o dvt, left arm pain and swelling Comparison: None Findings: Duplex Doppler evaluation of the venous system of the LEFT lower neck and upper extremity including color Doppler and spectral/pulsed waveform analysis was performed. The internal jugular vein demonstrates appropriate compressibility and waveform variability. The subclavian vein is patent on color Doppler evaluation without intraluminal thrombus and demonstrates waveform variability. The visualized portion of the brachiocephalic vein is patent on color Doppler evaluation without intraluminal thrombus and demonstrates waveform variability. The axillary vein demonstrates appropriate compressibility and waveform variability. The brachial veins demonstrate appropriate compressibility and patency on Doppler evaluation. The basilic vein demonstrates appropriate compressibility and patency on Doppler evaluation. The cephalic vein demonstrates appropriate compressibility and patency on Doppler evaluation. Impression: No venous thrombus identified in the LEFT upper extremity vessels evaluated above. If clinical concern/symptoms persist or worsen, short-interval follow-up study is suggested. ATED BY: JIM DILLARD MD DICTATED DATE/TIME: 07/27/24 1317 SIGNED BY: JIM DILLARD MD SIGNED DATE/TIME: 07/27/24 1317 CC: Condition at Discharge: Guarded Final Diagnosis/Problems List GI bleeding, rule out gastric ulcer, peptic ulcer disease, duodenal ulcers, angiodysplasias Severe anemia, status post blood transfusion x3 Possible aspiration pneumonia, Gram-positive versus Gram-negative Metabolic encephalopathy due to above Bilateral pleural effusions Septic shock due to above Lactic acidosis due to above Acute hypoxic respiratory failure due to above ARIEL on CKD stage 2 likely due to VMN Renal mass, rule out neoplasia Liver mass, rule out neoplasia Possible liver cirrhosis Proctocolitis, rule out gastroenteritis, infectious versus noninfectious Hypertensive heart disease/ HFmrEF History of GERD History of hypertension History of hypothyroidism History of chronic back pain History of osteoarthritis History of dementia Discharge Disposition: Hospice - Home Discharge Instruct/Medications Diet: Cardiac 2g Na,low cholest Activity: No Restrictions, As Tolerated Follow Up/Referral: fu with pcp in 1-2 weeks Medications: continue meds per hospice doctor Discharge Statement: "Patient was advised to return to the ER or call 911 if any headaches, dizziness, shortness of breath, chest pain, abdominal pain, bleeding, fevers, or worsening of medical condition. Patient was counseled about treatment plan, medications, possible side effects, patientverbalized understanding. All questions were answered to the best of my ability. This discharge took greater then 30 minutes in planning, reviewing documentation, counseling the patient, and discussing with other team members." ASSESSMENT ASSESSMENT Assessment pneumonia Date of Service: Jul 27, 2024 Billing Provider: SAMREEN PHELPS MD Common Visit Codes: 72877-KZM/OBS DISCH DAY >30min JANEY BANKS RESIDENT Jul 27, 2024 16:08 SAMREEN PHELPS MD Jul 27, 2024 17:19
[2024-07-27] MEDS ORDERED: CEFP200T15 PO (16:09)
[2024-07-27] MEDS ORDERED: SUCR1SUS26 PO (16:09)
[2024-07-27] MEDS ORDERED: PANT40TA2 PO (16:09)
[2024-07-27] MEDS: MORPHINE SULFATE INJ 2 MG/ml SYRG IV PRN (18:41)
[2024-07-28] VITALS (10 sets, daily range): BP systolic 109–133; BP diastolic 54–65; PULSE 71–92; RESP 16–20; TEMP 36.7; O2SAT 91–100
[2024-07-28 07:06] LABS: Potassium 3.7 mmol/L (3.5-5.1)
--- NOTE | 2024-07-28 13:47 | DVHPNRES ---
Progress Note Date Seen: Jul 28, 2024 Resident Creating Document: JANEY BANKS RESIDENT Medical Necessity Reason Pt with a Central, PICC or Fol: No The following are medically ne: PICC Line, Crump Catheter Subjective Review of Systems On my assessment, patient was seen and examined at bedside. Currently states feeling better than on admission, alert and oriented x2 denies any significant shortness of breath, chest pain, abdominal pain, dysuria, nausea, vomiting, diarrhea, constipation, dizziness, lightheadedness. Currently tolerating diet. Objective vital signs Vital Sign Date Time Temp Pulse Resp B/P (MAP) Pulse Ox O2 Delivery O2 Flow Rate FiO2 07/28/24 13:00 97.9 82 16 110/59 (76) 96 97.9 07/28/24 11:48 Nasal Cannula* 1 24 Total Intake and Output 07/27/24 07/27/24 07/28/24 15:00 23:00 07:00 Intake Total 352.5 ml 450 ml 300 ml Output Total 350 ml 650 ml Balance 352.5 ml 100 ml -350 ml medications Current Medications Medications Dose Ordered Sig/Yas Route Start Time Stop Time Status Last Admin Dose Admin Norepinephrine Bitartrate 250 ml @ 3.75 mls/hr Q24H IV 07/24/24 20:00 07/26/24 11:25 3.75 MLS/HR Nitroglycerin 0.4 mg Q5MINP PRN SL 07/25/24 01:30 Morphine Sulfate 2 mg Q30M PRN IV 07/25/24 01:30 Vancomycin HCl 0 ml @ 0 mls/hr UD IV 07/25/24 01:30 Pantoprazole Sodium 40 mg BID IV 07/25/24 10:00 07/28/24 09:23 40 MG Morphine Sulfate 1 mg Q6HP PRN IV 07/25/24 12:00 07/28/24 10:32 1 MG Sodium Chloride 10 ml QSHIFT@10,22 IV 07/25/24 22:00 07/28/24 09:29 10 ML Albuterol 2.5 mg Q6HWA NEB 07/26/24 06:00 07/28/24 11:48 2.5 MG Ipratropium Picher 0.5 mg Q6HWA NEB 07/26/24 06:00 07/28/24 11:48 0.5 MG Cefepime HCl 50 ml @ 12.5 mls/hr Q12HR IV 07/26/24 10:15 07/28/24 09:22 12.5 MLS/HR Vancomycin HCl 150 ml @ 120 mls/hr Q24H IV 07/26/24 14:00 07/27/24 13:54 120 MLS/HR Melatonin 5 mg HS PO 07/26/24 22:00 07/27/24 21:30 5 MG Sucralfate 1 gm QID@0600,1130,1700,2200 PO 07/27/24 11:30 07/28/24 10:36 1 GM Examination Physical examination as below: General: Awake, alert, comfortable appearing, in no acute distress. A&O x2 HEENT: Head is normocephalic and atraumatic. Pupils are equal, round, and reactive to light. Extraocular muscles are intact Neck: Supple with no cervical lymphadenopathy. Heart: Regular rate without murmur, rub, or gallop. Lungs: Mild bilateral crackles, improving Abdomen: No external sign of injury. Bowel sounds are present. Abdomen is soft, nontender. No rebound, no guarding, no rigidity. There are no palpable masses. There is no flank pain on exam. Extremities: Faint peripheral pulses. There is no clubbing, no cyanosis, and no edema. Skin: No rash. Neurologic: Cranial nerves II-XII intact without motor, sensory deficit. laboratory and microbiology Laboratory Tests 07/28/24 06:23 07/27/24 04:45 Test 07/27/24 04:45 Range/Units Serum Glucose 95 74-106 mg/dL Microbiology Date/Time Source Procedure Growth Status 07/26/24 04:00 Nose MRSA Screen - Final Complete 07/24/24 18:10 Blood Blood Culture - Preliminary NO GROWTH AFTER 72 HOURS OF INCUBATION. Resulted Labs and/or images reviewed: Labs reviewed by me, Image(s) reviewed by me Problem List/Assessment/Plan Problem List/Assessment/Plan Possible GI bleeding, rule out gastric ulcer, peptic ulcer disease, duodenal ulcers, angiodysplasias Severe anemia, status post blood transfusion x3 Possible aspiration pneumonia, Gram-positive versus Gram-negative Metabolic encephalopathy due to above Bilateral pleural effusions Septic shock due to above Lactic acidosis due to above Acute hypoxic respiratory failure due to above ARIEL on CKD stage 2 likely due to VMN Renal mass, rule out neoplasia Liver mass, rule out neoplasia Possible liver cirrhosis Proctocolitis, rule out gastroenteritis, infectious versus noninfectious Hypertensive heart disease/ HFmrEF History of GERD History of hypertension History of hypothyroidism History of chronic back pain History of osteoarthritis History of dementia Plan: Maintain hemoglobin above eight, monitor CBC , pending stool occult blood Protonix 40 mg IV b.i.d. Soft mech diet [employer] Equipment [employer] following Continue broad-spectrum antibiotics with cefepime IV, vancomycin IV. Continue DuoNebs Pending blood culture, urine culture, sputum culture, MRSA, COVID and flu negative Maintain nasal cannula, saturation above 92%. DC planning home with hospice Goals of care were discussed for over 30 minutes. DNR/DNI. We had a lengthy discussion today with the family members and we explained the current patient status, poor prognosis. They agreed to put the patient on hospice at home. Patient will be discharge home with hospice, will continue home medications as prescribed. She will continue medications per hospice doctor. Patient verbalized understanding and agree with the DC plan, we spent over 30 minutes explaining the plan. Case was discussed with Dr. Loya Plan discussed with: Patient, Other (RN) My Orders My Orders Orders - JANEY BANKS RESIDENT Procedure Category Date Status Time Mechanical Soft Diet DIET 07/27/24 Transmitted Dinner Dietary Evaluation Review Comments: 1) Advance diet as medically feasible 2) Continue current plan of care Expected Outcomes/Goals: Pt will meet >75% estimated needs Fu 2-3 days CC Plasma Assessment Blood Product Administration S: [id number] JANEY BANKS RESIDENT Jul 28, 2024 13:47
== END 2024-07-28 15:10 | disposition hospice, home (50) | DRG 871 ==
LOC: ER 16:05 → EDUNIT# 16:05 → EDBD 16:05 → OVERFLOW 07-25 01:19 → DOU IN ICU 07-26 03:31 → ICU CENTRL 07-26 03:32 → WEST WING 07-27 16:24
PROVIDERS: ADMIT Internal Medicine; ATTEND Internal Medicine
PROC: 30233N1 Transfusion of Nonautologous Red Blood Cells into Peripheral Vein, Percutaneous Approach (ICD-10-PCS; principal; 2024-07-24)
PROC: 05H933Z Insertion of Infusion Device into Right Brachial Vein, Percutaneous Approach (ICD-10-PCS; 2024-07-24)
PROC: 02HV33Z Insertion of Infusion Device into Superior Vena Cava, Percutaneous Approach (ICD-10-PCS; 2024-07-25)
PROC: B548ZZA Ultrasonography of Superior Vena Cava, Guidance (ICD-10-PCS; 2024-07-25)
DX: A41.9 Sepsis, unspecified organism (principal); G93.41 Metabolic encephalopathy; I21.A1 Myocardial infarction type 2; R57.1 Hypovolemic shock; J69.0 Pneumonitis due to inhalation of food and vomit; J96.01 Acute respiratory failure with hypoxia; N17.0 Acute kidney failure with tubular necrosis; K55.21 Angiodysplasia of colon with hemorrhage; K26.4 Chronic or unspecified duodenal ulcer with hemorrhage; R65.21 Severe sepsis with septic shock; J15.9 Unspecified bacterial pneumonia; J15.69 Pneumonia due to other Gram-negative bacteria; J18.9 Pneumonia, unspecified organism; E87.20 Acidosis, unspecified; D62 Acute posthemorrhagic anemia; M48.56XA Collapsed vertebra, not elsewhere classified, lumbar region, initial encounter for fracture; I13.0 Hypertensive heart and chronic kidney disease with heart failure and stage 1 through stage 4 chronic kidney disease, or unspecified chronic kidney disease; I50.22 Chronic systolic (congestive) heart failure; Z20.822 Contact with and (suspected) exposure to COVID-19; E87.5 Hyperkalemia; E78.5 Hyperlipidemia, unspecified; K21.9 Gastro-esophageal reflux disease without esophagitis; F03.90 Unspecified dementia, unspecified severity, without behavioral disturbance, psychotic disturbance, mood disturbance, and anxiety; N18.2 Chronic kidney disease, stage 2 (mild); K74.60 Unspecified cirrhosis of liver; E87.6 Hypokalemia; E03.9 Hypothyroidism, unspecified; E86.0 Dehydration; K52.89 Other specified noninfective gastroenteritis and colitis; N28.89 Other specified disorders of kidney and ureter; E83.41 Hypermagnesemia; K57.30 Diverticulosis of large intestine without perforation or abscess without bleeding; G89.29 Other chronic pain; K76.9 Liver disease, unspecified; I48.91 Unspecified atrial fibrillation; I44.7 Left bundle-branch block, unspecified; Z51.5 Encounter for palliative care; Z83.3 Family history of diabetes mellitus; Z90.710 Acquired absence of both cervix and uterus; Z79.899 Other long term (current) drug therapy; Z90.49 Acquired absence of other specified parts of digestive tract
CPT/HCPCS: 36415; 36569; 36600; 70450; 71045; 74176; 76705; 76775; 76937; 80048; 80053; 80202; 81001; 82105; 82140; 82378; 82565; 82607; 82728; 82746; 82805; 82962; 83540; 83550; 83605; 83735; 83880; 84132; 84439; 84443; 84480; 84484; 85014; 85018; 85025; 85045; 85610; 85730; 86304; 86850; 86900; 86901; 86920; 87040; 87081; 87426; 87804; 93005; 93306; 93971; 94640; 96361; 96374; 96375; 99291; G0378; J2405; J2470; J2543